=== PATIENT | male | born 1940 | race Caucasian/White ===

== ENCOUNTER → 2018-04-14 | Outpatient (CLI) | payer MEDICARE, OTHER ==
[2018-04-14 09:41] LABS: CREATININE 1.6 mg/dL (0.7-1.3); GFR 42.2
== END | disposition home or self-care (01) ==
LOC: CT 08:24
PROVIDERS: ATTEND Urology
DX: R31.0 Gross hematuria (principal)
CPT/HCPCS: 36415; 82565

== ENCOUNTER 2018-04-20 07:12 | Outpatient (CLI) | payer MEDICARE, OTHER ==
[~2018-04-20] VITALS: Ht 180.3 cm; Wt 116.1 kg
[2018-04-20] MEDS ORDERED: SODIUM BICARBONATE VIAL 150 MEQ in IV STERILE WATER 1,000 ML IV SCH (07:30)
[2018-04-20] MEDS ORDERED: TAMS0.4C2 PO (08:30)
[2018-04-20] MEDS ORDERED: FURO40TA4 PO (08:30)
[2018-04-20] MEDS ORDERED: CINN500C2 PO (08:30)
[2018-04-20] MEDS ORDERED: METO200T46 PO (08:30)
[2018-04-20] MEDS ORDERED: CHRO400T3 PO (08:30)
[2018-04-20] MEDS ORDERED: SITA100T PO (08:30)
[2018-04-20] MEDS ORDERED: DILT240C66 PO (08:30)
[2018-04-20] MEDS ORDERED: GLIM2TAB2 PO (08:30)
[2018-04-20] MEDS ORDERED: METF500T16 PO (08:30)
[2018-04-20] MEDS ORDERED: LOSA25TA PO (08:30)
[2018-04-20] MEDS ORDERED: NABU500T PO (08:30)
[2018-04-20] MEDS ORDERED: APIX5TAB PO (08:30)
[2018-04-20] MEDS ORDERED: ASPI-630 PO (08:30)
[2018-04-20] MEDS ORDERED: ATOR20TA58 PO (08:30)
[2018-04-20] MEDS ORDERED: ASCO10002 PO (08:31)
[2018-04-20] MEDS ORDERED: OMEG1CAP43 PO (08:31)
[2018-04-20] MEDS ORDERED: MULT-690 PO (08:31)
[2018-04-20 08:43] VITALS: BP 147/79
[2018-04-20] MEDS ORDERED: IOHEXOL 300 MG/ML 100ML VIAL. IV ONE (09:00)
[2018-04-20] MEDS ORDERED: CONTRAST GIVEN. MC PRN (09:00)
--- NOTE | 2018-04-20 11:17 | RAD ---
Examination: CT abdomen and pelvis without and with IV contrast using CT urogram protocol HISTORY: History of gross hematuria COMPARISON: None available TECHNIQUE: Axial CT images of the abdomen pelvis were performed without and with IV contrast. CT abdomen protocol is used. Coronal and sagittal reformats are performed Exposure: One or more of the following individualized dose reduction techniques were utilized for this examination: 1. Automated exposure control 2. Adjustment of the mA and/or kV according to patient size 3. Use of iterative reconstruction technique Findings: Minimal bibasilar lung atelectasis is identified. No evidence of free air identified in the abdomen. The visualized liver, spleen, adrenals grossly appears unremarkable. The gallbladder is mildly distended. . The stomach is mildly distended. The visualized pancreas grossly appears unremarkable. Small bowel is nondilated. Feces and gas noted in the colon. Multiple sigmoid colon diverticulosis identified. There is punctate 3 mm calculus identified in the right kidney. There is mild fat stranding identified about the right kidney and right ureter. The left kidney is not identified likely prior surgical changes. The urinary bladder is mildly distended. No evidence of filling defects identified in the urinary bladder. Mildly enlarged prostate gland. Moderate aortic atherosclerosis. Small fat-containing left inguinal hernia. Moderate degenerative changes lumbar spine. There is mild superior endplate compression change of L3 vertebral body. IMPRESSION: 1. Mild fat stranding identified about the right kidney and the right ureter, nonspecific could be due to medical renal disease or urinary tract infection. Correlate with lab values. 2. Punctate 3 mm calculus right kidney without hydronephrosis. 2. Changes of left nephrectomy. Electronically signed by: Timbo Dawkins MD (04/20/2018 11:14 AM) [facility]
[2018-04-20 12:56] VITALS: BP 185/99
--- NOTE | 2018-04-20 13:16 | NUR ---
Pt's IV dc'd from left FA with no complications. Pt VSS. Pt walked to outpatient entrance, accompanied by his .
== END 2018-04-20 13:00 | disposition home or self-care (01) ==
LOC: CT 07:12
PROVIDERS: ATTEND Urology
DX: N20.0 Calculus of kidney (principal); M47.896 Other spondylosis, lumbar region; I70.0 Atherosclerosis of aorta; K40.90 Unilateral inguinal hernia, without obstruction or gangrene, not specified as recurrent; N40.0 Benign prostatic hyperplasia without lower urinary tract symptoms; N32.89 Other specified disorders of bladder; K57.30 Diverticulosis of large intestine without perforation or abscess without bleeding; J98.11 Atelectasis; J44.9 Chronic obstructive pulmonary disease, unspecified; I10 Essential (primary) hypertension; E11.9 Type 2 diabetes mellitus without complications; Z87.891 Personal history of nicotine dependence
CPT/HCPCS: 74178; Q9967

== ENCOUNTER 2018-12-08 06:22 | Emergency (ER) | payer MEDICARE, OTHER ==
[~2018-12-08] VITALS: Ht 180.3 cm; Wt 116.1 kg
[~2018-12-08 06:22] MED LIST: APIX5TAB PO; ASCO10002 PO; ASPI-630 PO; ATOR20TA58 PO; CHRO400T3 PO; CINN500C2 PO; DILT240C66 PO; FURO40TA4 PO; GLIM2TAB3 PO; LOSA25TA PO; METF500T16 PO; METO200T46 PO; MULT-690 PO; NABU500T PO; OMEG1CAP43 PO; SITA100T PO; TAMS0.4C2 PO
[2018-12-08] MEDS ORDERED: SILVER NITRATE STICK TP ONE (06:32)
[2018-12-08 07:11] LABS: BASO # 0.1 x10^3/uL (0.0-0.2); BASO % 1 % (0-3); EOS # 0.1 x10^3/uL (0.0-0.7); EOS % 2 % (0-3); HEMATOCRIT 39.6 % (39.0-53.0); LYMPH % 12 % (24-48); MEAN CORPUSCULAR HEMOGLOBIN 32 pg (25-35); MEAN CORPUSCULAR HGB CONC 33 g/dL (31-37); MEAN CORPUSCULAR VOLUME 99 fL (79-100); MONO # 0.7 x10^3/uL (0.0-1.1); MONO % 8 % (0-9); NEUT # 6.7 x10^3/uL (1.8-7.7); NEUT % 78 % (31-73); PLATELET COUNT 172 x10^3/uL (140-400); RED CELL DISTRIBUTION WIDTH 14.9 % (11.5-14.5); WHITE BLOOD COUNT 8.6 x10^3/uL (4.0-11.0)
[2018-12-08 07:16] LABS: CALCIUM 9.3 mg/dL (8.5-10.1); CREATININE 1.6 mg/dL (0.7-1.3); GFR 42.2; POTASSIUM 4.8 mmol/L (3.5-5.1)
[2018-12-08 07:23] LABS: ALBUMIN 3.7 g/dL (3.4-5.0); ALBUMIN/GLOBULIN RATIO 1.1 (1.0-1.7); TOTAL BILIRUBIN 0.6 mg/dL (0.2-1.0); TOTAL PROTEIN 7.1 g/dL (6.4-8.2)
[2018-12-08 07:24] LABS: PROTHROMBIN TIME PATIENT 15.6 SEC (11.7-14.0)
--- NOTE | 2018-12-08 08:28 | PHYS DOC ---
Past Medical History Past Medical History: A-Fib, Diabetes-Type II, Other Additional Past Medical Histor: NEUROPATHY Alcohol Use: Occasionally Drug Use: None Adult General Chief Complaint Chief Complaint: LACERATION/AVULSION HPI HPI Patient is a 78 year old male with history of atrial fibrillation on Eliquis and aspirin who presents via EMS with complaining of bleeding. Patient state he has had readings in the rectum of left foot since 2 AM that did not stop with applied pressure. Patient denies injuries and other bleeding. Review of Systems Review of Systems Constitutional: Denies fever or chills [] Eyes: Denies change in visual acuity, redness, or eye pain [] HENT: Denies nasal congestion or sore throat [] Respiratory: Denies cough or shortness of breath [] Cardiovascular: No additional information not addressed in HPI [] GI: Denies abdominal pain, nausea, vomiting, bloody stools or diarrhea [] : Denies dysuria or hematuria [] Musculoskeletal: Denies back pain or joint pain [] Integument: Denies rash or skin lesions [] Neurologic: Denies headache, focal weakness or sensory changes [] Endocrine: Denies polyuria or polydipsia [] All other systems were reviewed and found to be within normal limits, except as documented in this note. Current Medications Current Medications Current Medications Medications (Trade) Dose Ordered Sig/Estefania Start Time Stop Time Status Last Admin Dose Admin Silver Nitrate/ Potassium Nitrate 1 each STK-MED ONCE 12/08/18 06:32 12/08/18 06:32 DC Allergies Allergies Allergies Coded Allergies Type Severity Reaction Last Updated Verified lisinopril Allergy Intermediate 04/14/18 Yes tetanus immune globulin Allergy Unknown 12/08/18 Yes Physical Exam Physical Exam Constitutional: Well developed, well nourished, mild distress, non-toxic appearance. [] HENT: Normocephalic, atraumatic. Eyes: PERRLA, EOMI, conjunctiva normal, no discharge. [] Neck: Normal range of motion, no tenderness, supple, no stridor. [] Cardiovascular: Irregularly irregular rhythm, systolic murmur [] Lungs & Thorax: Bilateral breath sounds clear to auscultation [] Extremities: No tenderness, no cyanosis, no clubbing, ROM intact, no edema, 1 mm spot of bleeding in volar side of left forefeet. [] Neurologic: Alert and oriented X 3, no focal deficits noted. [] Psychologic: Affect normal, judgement normal, mood normal. [] Current Patient Data Vital Signs Vital Signs Date Time Temp Pulse Resp B/P (MAP) Pulse Ox O2 Delivery O2 Flow Rate FiO2 12/08/18 08:33 80 194/99 (130) 95 Room Air 12/08/18 07:03 18 12/08/18 06:25 98.0 98.0 Lab Values Laboratory Tests Test 12/08/18 06:52 12/08/18 06:55 Glucose (Fingerstick) 126 mg/dL (70-99) H White Blood Count 8.6 x10^3/uL (4.0-11.0) Red Blood Count 4.00 x10^6/uL (4.30-5.70) L Hemoglobin 13.0 g/dL (13.0-17.5) Hematocrit 39.6 % (39.0-53.0) Mean Corpuscular Volume 99 fL (79-100) Mean Corpuscular Hemoglobin 32 pg (25-35) Mean Corpuscular Hemoglobin Concent 33 g/dL (31-37) Red Cell Distribution Width 14.9 % (11.5-14.5) H Platelet Count 172 x10^3/uL (140-400) Neutrophils (%) (Auto) 78 % (31-73) H Lymphocytes (%) (Auto) 12 % (24-48) L Monocytes (%) (Auto) 8 % (0-9) Eosinophils (%) (Auto) 2 % (0-3) Basophils (%) (Auto) 1 % (0-3) Neutrophils # (Auto) 6.7 x10^3/uL (1.8-7.7) Lymphocytes # (Auto) 1.0 x10^3/uL (1.0-4.8) Monocytes # (Auto) 0.7 x10^3/uL (0.0-1.1) Eosinophils # (Auto) 0.1 x10^3/uL (0.0-0.7) Basophils # (Auto) 0.1 x10^3/uL (0.0-0.2) Prothrombin Time 15.6 SEC (11.7-14.0) H Prothrombin Time INR 1.3 (0.8-1.1) H Activated Partial Thromboplast Time 31 SEC (24-38) Sodium Level 145 mmol/L (136-145) Potassium Level 4.8 mmol/L (3.5-5.1) Chloride Level 109 mmol/L (98-107) H Carbon Dioxide Level 24 mmol/L (21-32) Anion Gap 12 (6-14) Blood Urea Nitrogen 28 mg/dL (8-26) H Creatinine 1.6 mg/dL (0.7-1.3) H Estimated GFR (Cockcroft-Gault) 42.2 BUN/Creatinine Ratio 18 (6-20) Glucose Level 124 mg/dL (70-99) H Calcium Level 9.3 mg/dL (8.5-10.1) Total Bilirubin 0.6 mg/dL (0.2-1.0) Aspartate Amino Transferase (AST) 19 U/L (15-37) Alanine Aminotransferase (ALT) 30 U/L (16-63) Alkaline Phosphatase 68 U/L (46-116) Total Protein 7.1 g/dL (6.4-8.2) Albumin 3.7 g/dL (3.4-5.0) Albumin/Globulin Ratio 1.1 (1.0-1.7) Laboratory Tests 12/08/18 06:55 Laboratory Tests 12/08/18 06:55 EKG EKG [] Radiology/Procedures Radiology/Procedures [] Course & Med Decision Making Course & Med Decision Making Pertinent Lab reviewed. (See chart for details) Evaluation of patient in ER showed 78-year-old male patient with bleeding and spotting left foot that stopped with apply Silvadene nitrite, Dermabond and Steri-Strip and pressure dressing. Dragon Disclaimer Dragon Disclaimer This electronic medical record was generated, in whole or in part, using a voice recognition dictation system. Departure Departure Impression: Primary Impression: Hemorrhage secondary to anti-coagulation Additional Impressions: Chronic renal insufficiency History of atrial fibrillation Disposition: HOME, SELF-CARE (at 0827) Condition: IMPROVED Referrals: NO PCP (PCP) Patient Instructions: Puncture Wound Additional Instructions: Keep wound clean and dry Follow-up with your primary care physician in 2-3 days Return to ER if not getting better Continue home medication Laceration Repair Lac Repair Indication: Puncture wound of left foot with bleeding Procedure: The patient was placed in the appropriate position and smartest pulsatile bleeding in left foot was treated with Silvadene nitrate stick and then Dermabond and Steri-Strip with controlling the bleeding. Pressure dressing was applied. total repaired wound length: [TOTAL REPAIR LENGTH]. Other Items: [OTHER ITEMS] The patient tolerated the procedure [TOLERATED]. Complications: [COMPLICATIONS]. Problem Qualifiers Additional Impressions: Chronic renal insufficiency Chronic kidney disease stage: unspecified stage Qualified Codes: N18.9 - Chronic kidney disease, unspecified VEE MCCONNELL MD Dec 08, 2018 08:28
[2018-12-08 08:33] VITALS: BP 194/99
== END 2018-12-08 08:35 | disposition home or self-care (01) ==
LOC: ER 06:22
DX: S91.312A Laceration without foreign body, left foot, initial encounter (principal); E11.22 Type 2 diabetes mellitus with diabetic chronic kidney disease; E11.40 Type 2 diabetes mellitus with diabetic neuropathy, unspecified; N18.9 Chronic kidney disease, unspecified; I48.91 Unspecified atrial fibrillation; Z88.8 Allergy status to other drugs, medicaments and biological substances; X58.XXXA Exposure to other specified factors, initial encounter; Y93.89 Activity, other specified; Y92.89 Other specified places as the place of occurrence of the external cause; Y99.8 Other external cause status
CPT/HCPCS: 12001; 36415; 80053; 82962; 85025; 85610; 85730; 99284

== ENCOUNTER 2019-01-09 11:54 | Inpatient (IN) | payer MEDICARE, OTHER ==
[~2019-01-09] VITALS: Ht 177.8 cm; Wt 116.1 kg
[2019-01-09] MEDS ORDERED: fentaNYL PF VIAL 100 MCG/2 ML VIAL IVP ONE ×2 (12:30→13:30)
[2019-01-09] MEDS ORDERED: ORPHENADRINE CITRATE 60 MG/2 ML VIAL. IV ONE (12:30)
--- NOTE | 2019-01-09 12:50 | PHYS DOC ---
Past Medical History Past Medical History: A-Fib, Bronchitis, COPD, Diabetes-Type II, Heart Disease, Hypertension, MD, Pneumonia, Other Additional Past Medical Histor: NEUROPATHY, CARDIAC STENTS. Past Surgical History: Appendectomy Alcohol Use: Occasionally Drug Use: None Adult General Chief Complaint Chief Complaint: MECHANICAL FALL HPI HPI Patient is a 78 year old male with history of hypertension, dyslipidemia, coronary artery disease, atrial fibrillation on Eliquis and diabetes mellitus who presents via EMS with complaint of fall and injury to left hip. Patient states he had an accidental fall in his garage and tripped on air compressor and fell without loss of consciousness or head injury. Patient complaining of severe pain in left hip and rated his pain 10 over 10 and states he was not able to move his left lower extremity or bearing weight. Patient denies focal neurodeficit and other injuries. Review of Systems Review of Systems Constitutional: Denies fever or chills [] Eyes: Denies change in visual acuity, redness, or eye pain [] HENT: Denies nasal congestion or sore throat [] Respiratory: Denies cough or shortness of breath [] Cardiovascular: No additional information not addressed in HPI [] GI: Denies abdominal pain, nausea, vomiting, bloody stools or diarrhea [] : Denies dysuria or hematuria [] Musculoskeletal: Denies back pain, reports joint pain [] Integument: Denies rash or skin lesions [] Neurologic: Denies headache, focal weakness or sensory changes [] Endocrine: Denies polyuria or polydipsia [] All other systems were reviewed and found to be within normal limits, except as documented in this note. Current Medications Current Medications Current Medications Medications (Trade) Dose Ordered Sig/Estefania Start Time Stop Time Status Last Admin Dose Admin Fentanyl Citrate (Fentanyl 2ml Vial) 50 mcg 1X ONCE 01/09/19 12:30 01/09/19 12:31 DC 01/09/19 12:46 50 MCG Orphenadrine Citrate (Norflex) 60 mg 1X ONCE 01/09/19 12:30 01/09/19 12:31 DC 01/09/19 12:46 60 MG Allergies Allergies Allergies Coded Allergies Type Severity Reaction Last Updated Verified lisinopril Allergy Intermediate 04/14/18 Yes tetanus immune globulin Allergy Unknown 12/08/18 Yes Physical Exam Physical Exam Constitutional: Well developed, well nourished, moderate distress, non-toxic appearance. [] HENT: Normocephalic, atraumatic. Eyes: PERRLA, EOMI, conjunctiva normal, no discharge. [] Neck: Normal range of motion, no tenderness, supple, no stridor. [] Cardiovascular: Irregularly irregular rhythm, no murmur [] Lungs & Thorax: Bilateral breath sounds clear to auscultation [] Abdomen: Bowel sounds normal, soft, no tenderness, no masses, no pulsatile masses. [] Skin: Warm, dry, no erythema, no rash. [] Extremities: Left lower extremity with external rotation and shortening and tenderness in hip, limited range of motion because of pain, no edema. [] Neurologic: Alert and oriented X 3, normal motor function, normal sensory function, no focal deficits noted. [] Psychologic: Affect normal, judgement normal, mood normal. [] Current Patient Data Vital Signs Vital Signs Date Time Temp Pulse Resp B/P (MAP) Pulse Ox O2 Delivery O2 Flow Rate FiO2 01/09/19 12:46 20 01/09/19 11:58 98.4 79 188/86 (120) 96 98.4 EKG EKG EKG interpreted by me. EKG at 1220 showed atrial fibrillation at rate of 74, abnormal left axis deviation, low voltage QRS, no acute ST and T-wave elevation. Radiology/Procedures Radiology/Procedures [][facility] [address] [place] [address] IMAGING REPORT Signed PATIENT: ELISABETH LUKE ACCOUNT: [id number] : 1940 LOCATION: ER AGE: 78 SEX: M EXAM STATUS: PRE ER ORD. PHYSICIAN: VEE MCCONNELL MD REASON: Fall PROCEDURE: HIP LEFT 2V WITH PELVIS PORTABLE CHEST 1V, HIP LEFT 2V WITH PELVIS Clinical History: Status post fall One view chest: Technique: AP view of the chest was obtained at 01/09/2019 12:44 PM. Comparison: None. Findings: The cardiomediastinal silhouette is normal. The pulmonary vasculature is normal. The lungs and pleural margins are clear. Impression: No evidence of an acute cardiopulmonary process. End impression Pelvis and left Two View hip: Clinical History: Pain status post fall. Technique: AP view the pelvis AP and crosstable lateral views of the left hip were obtained. Comparison: None. Findings: There is a distracted nondisplaced intratrochanteric fracture of the left hip with avulsion of the lesser trochanter. There is obscuration of bony detail of sacrum due to overlying bowel gas. The visualized osseous structures appear normal. The femoral acetabular relationship is normal. There is gross osteopenia which decreases sensitivity for a possible nondisplaced fracture. Impression: Acute intratrochanteric fracture of the left hip. Electronically signed by: Lea Byrd III, MD (01/09/2019 1:00 PM) [facility] DICTATED and SIGNED BY: LEA BYRD III, MD DATE: 01/09/19 1300 [facility] [address] [place] [address] IMAGING REPORT Signed PATIENT: ELISABETH LUKE ACCOUNT: [id number] : 1940 LOCATION: ER AGE: 78 SEX: M EXAM STATUS: REG ER ORD. PHYSICIAN: VEE MCCONNELL MD REASON: fall PROCEDURE: CT HEAD WO CONTRAST Exam performed: CT scan of the head without contrast. Date of Service: 01/09/2019. Comparison: None available. Clinical History: Fall. Technique: Helical acquisitions are obtained from the foramen magnum to the vertex without intravenous administration of contrast. Findings: The ventricles are midline without evidence of dilatation. Normal nicolas-white differentiation is maintained. There is no extra axial fluid collection, intraparenchymal hemorrhage or mass lesion. There is mild atrophy. The visualized portions of the orbits, paranasal sinuses and the mastoid air cells appear clear. The calvarium is intact. Impression: 1. No acute intracranial process detected. PQRS Compliance Statement: One or more of the following individualized dose reduction techniques were utilized for this examination: 1. Automated exposure control 2. Adjustment of the mA and/or kV according to patient size 3. Use of iterative reconstruction technique Electronically signed by: Aleshia Crook MD (01/09/2019 1:31 PM) [facility] DICTATED and SIGNED BY: ALESHIA CROOK MD DATE: 01/09/19 1331 [facility] [address] [place] [address] IMAGING REPORT Signed PATIENT: ELISABETH LUKE ACCOUNT: [id number] : 1940 LOCATION: ER AGE: 78 SEX: M EXAM STATUS: PRE ER ORD. PHYSICIAN: VEE MCCONNELL MD REASON: fall PROCEDURE: PORTABLE CHEST 1V PORTABLE CHEST 1V, HIP LEFT 2V WITH PELVIS Clinical History: Status post fall One view chest: Technique: AP view of the chest was obtained at 01/09/2019 12:44 PM. Comparison: None. Findings: The cardiomediastinal silhouette is normal. The pulmonary vasculature is normal. The lungs and pleural margins are clear. Impression: No evidence of an acute cardiopulmonary process. End impression Pelvis and left Two View hip: Clinical History: Pain status post fall. Technique: AP view the pelvis AP and crosstable lateral views of the left hip were obtained. Comparison: None. Findings: There is a distracted nondisplaced intratrochanteric fracture of the left hip with avulsion of the lesser trochanter. There is obscuration of bony detail of sacrum due to overlying bowel gas. The visualized osseous structures appear normal. The femoral acetabular relationship is normal. There is gross osteopenia which decreases sensitivity for a possible nondisplaced fracture. Impression: Acute intratrochanteric fracture of the left hip. Electronically signed by: Lea Byrd III, MD (01/09/2019 1:00 PM) [facility] DICTATED and SIGNED BY: LEA BYRD III, MD DATE: 01/09/19 1300 Course & Med Decision Making Course & Med Decision Making Pertinent Labs and Imaging studies reviewed. (See chart for details) Evaluation of patient in ER showed 78-year-old male patient with a fall and injury to left hip. Patient had total concrete left femoral fracture severe pain and episodes of muscle spasm that improved with fentanyl and Norflex IV. call circuit worker orthopedic physician Dr. Terese Jacobo was consulted at 1335 and agreed with plan of admission.Patient requiring admission for further evaluation and treatment. Discussed with Dr. Bentley who is in agreement with admission. Discussed findings and plan with patient and family, who acknowledge understanding and agreement. Dragon Disclaimer Dragon Disclaimer This electronic medical record was generated, in whole or in part, using a voice recognition dictation system. Departure Departure Impression: Primary Impression: Closed intertrochanteric fracture of femur Additional Impressions: Fall at home Hyperkalemia Chronic atrial fibrillation Renal insufficiency Disposition: 09 ADMITTED INPATIENT (at 1337) Condition: IMPROVED Referrals: NO PCP (PCP) Problem Qualifiers Primary Impression: Closed intertrochanteric fracture of femur Encounter type: initial encounter Fracture alignment: displaced Laterality: left Qualified Codes: S72.142A - Displaced intertrochanteric fracture of left femur, initial encounter for closed fracture Additional Impressions: Fall at home Encounter type: subsequent encounter Qualified Codes: W19.XXXD - Unspecified fall, subsequent encounter; Y92.009 - Unspecified place in unspecified non-institutional (private) residence as the place of occurrence of the external cause VEE MCCONNELL MD Jan 09, 2019 12:50
[2019-01-09 13:03] LABS: BASO % 0 % (0-3); EOS # 0.2 x10^3/uL (0.0-0.7); EOS % 2 % (0-3); HEMATOCRIT 40.6 % (39.0-53.0); HEMOGLOBIN 13.7 g/dL (13.0-17.5); LYMPH % 11 % (24-48); MEAN CORPUSCULAR HEMOGLOBIN 33 pg (25-35); MEAN CORPUSCULAR HGB CONC 34 g/dL (31-37); MEAN CORPUSCULAR VOLUME 98 fL (79-100); MONO # 0.7 x10^3/uL (0.0-1.1); MONO % 7 % (0-9); NEUT # 7.6 x10^3/uL (1.8-7.7); NEUT % 80 % (31-73); PLATELET COUNT 162 x10^3/uL (140-400); RED BLOOD COUNT 4.14 x10^6/uL (4.30-5.70); RED CELL DISTRIBUTION WIDTH 14.7 % (11.5-14.5); WHITE BLOOD COUNT 9.5 x10^3/uL (4.0-11.0)
--- NOTE | 2019-01-09 13:03 | RAD ---
PORTABLE CHEST 1V, HIP LEFT 2V WITH PELVIS Clinical History: Status post fall One view chest: Technique: AP view of the chest was obtained at 01/09/2019 12:44 PM. Comparison: None. Findings: The cardiomediastinal silhouette is normal. The pulmonary vasculature is normal. The lungs and pleural margins are clear. Impression: No evidence of an acute cardiopulmonary process. End impression Pelvis and left Two View hip: Clinical History: Pain status post fall. Technique: AP view the pelvis AP and crosstable lateral views of the left hip were obtained. Comparison: None. Findings: There is a distracted nondisplaced intratrochanteric fracture of the left hip with avulsion of the lesser trochanter. There is obscuration of bony detail of sacrum due to overlying bowel gas. The visualized osseous structures appear normal. The femoral acetabular relationship is normal. There is gross osteopenia which decreases sensitivity for a possible nondisplaced fracture. Impression: Acute intratrochanteric fracture of the left hip. Electronically signed by: Gaurav Yung III, MD (01/09/2019 1:00 PM) [facility]
[2019-01-09 13:10] LABS: CALCIUM 9.3 mg/dL (8.5-10.1); CREATININE 1.6 mg/dL (0.7-1.3); GFR 42.2; POTASSIUM 5.5 mmol/L (3.5-5.1)
[2019-01-09 13:16] LABS: ALBUMIN 3.6 g/dL (3.4-5.0); TOTAL PROTEIN 7.1 g/dL (6.4-8.2)
[2019-01-09 13:18] LABS: PROTHROMBIN TIME PATIENT 16.5 SEC (11.7-14.0)
--- NOTE | 2019-01-09 13:34 | RAD ---
Exam performed: CT scan of the head without contrast. Date of Service: 01/09/2019. Comparison: None available. Clinical History: Fall. Technique: Helical acquisitions are obtained from the foramen magnum to the vertex without intravenous administration of contrast. Findings: The ventricles are midline without evidence of dilatation. Normal incolas-white differentiation is maintained. There is no extra axial fluid collection, intraparenchymal hemorrhage or mass lesion. There is mild atrophy. The visualized portions of the orbits, paranasal sinuses and the mastoid air cells appear clear. The calvarium is intact. Impression: 1. No acute intracranial process detected. PQRS Compliance Statement: One or more of the following individualized dose reduction techniques were utilized for this examination: 1. Automated exposure control 2. Adjustment of the mA and/or kV according to patient size 3. Use of iterative reconstruction technique Electronically signed by: Aleshia Crook MD (01/09/2019 1:31 PM) [facility]
--- NOTE | 2019-01-09 13:44 | PDOC1 ---
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 Patient states he had an accidental fall in his garage and tripped on air compressor and fell without loss of consciousness or head injury. Patient complaining of severe pain in left hip and rated his pain 10 / 10 and states he was not able to move his left lower extremity or bear weight. Patient denies focal neurodeficit and other injuries. His daughter bedside supplements his history. In ED notably had 5.5, Cr 1.6, INR 1.4. He did take his eliquis this morning. He does have cardiac history with stenting, afib. Has had a stress test some time during the past 2 years, goes to [facility] for his cardiac care. Past Medical History Cardiovascular: AFIB, CAD, HTN, Hyperlipidemia Pulmonary: COPD GI: No pertinent hx Heme/Onc: Cancer (Renal Ca) Hepatobiliary: No pertinent hx Psych: No pertinent hx Rheumatologic: No pertinent hx Infectious disease: No pertinent hx ENT: No pertinent hx Renal/: Renal Ca. Endocrine: Diabetes Dermatology: No pertinent hx Past Surgical History Past Surgical History: Appendectomy, Other (Left nephrectomy) Family History Family History: Diabetes, Hypertension Social History Smoke: No ALCOHOL: rare Drugs: None Current Medications Current Medications Current Medications Fentanyl Citrate (Fentanyl 2ml Vial) 50 mcg 1X ONCE IVP Last administered on 01/09/19at 12:46; Start 01/09/19 at 12:30; Stop 01/09/19 at 12:31; Status DC Orphenadrine Citrate (Norflex) 60 mg 1X ONCE IV Last administered on 01/09/19at 12:46; Start 01/09/19 at 12:30; Stop 01/09/19 at 12:31; Status DC Fentanyl Citrate (Fentanyl 2ml Vial) 50 mcg 1X ONCE IVP Last administered on 01/09/19at 13:37; Start 01/09/19 at 13:30; Stop 01/09/19 at 13:31; Status DC Active Scripts Active Reported Vitamin C (Ascorbic Acid) 1,000 Mg Tablet 1,000 Mg PO DAILY Fish Oil 1,400 Mg Softgel ([place]-3/Dha/Epa/Fish Oil) 1 Each Capsule.dr 1 Each PO DAILY Centrum Silver Men Tablet (Multivit-Min/FA/Lycopen/Lutein) 1 Each Tablet 1 Each PO DAILY Cinnamon (Cinnamon Bark) 500 Mg Capsule 1,000 Mg PO BID Chromium Picolinate 400 Mcg Tablet 400 Mcg PO DAILY Tamsulosin Hcl 0.4 Mg Cap.er.24h 0.4 Mg PO DAILY Nabumetone 500 Mg Tablet 1 Tab PO BID Metformin Hcl 500 Mg Tablet 500 Mg PO BIDWMEALS Metoprolol Succinate ( Xl ) (Metoprolol Succinate) 200 Mg Tab.er.24h 200 Mg PO DAILY Cozaar (Losartan Potassium) 25 Mg Tablet 25 Mg PO DAILY Januvia (Sitagliptin Phosphate) 100 Mg Tablet 100 Mg PO HS Glimepiride 2 Mg Tablet 2 Mg PO BID Furosemide 40 Mg Tablet 40 Mg PO DAILY PRN Eliquis (Apixaban) 5 Mg Tablet 5 Mg PO BID Cartia Xt (Diltiazem Hcl) 240 Mg Cap.er.24h 240 Mg PO DAILY Atorvastatin Calcium 20 Mg Tablet 20 Mg PO HS Aspirin 81 Mg Tab.chew 1 Tab PO DAILY Allergies Allergies: Coded Allergies: lisinopril (Verified Allergy, Intermediate, 04/14/18) tetanus immune globulin (Verified Allergy, Unknown, 12/08/18) ROS General: YES: Fatigue, Malaise; No: Chills, Night Sweats, Appetite, Other PSYCHOLOGICAL ROS: No: Anxiety, Behavioral Disorder, Concentration difficultie, Decreased libido, Depression, Disorientation, Hallucinations, Hostility, Irritablity, Memory difficulties, Mood Swings, Obsessive thoughts, Physical abuse, Sexual abuse, Sleep disturbances, Suicidal ideation, Other Eyes: No Blurry vision, No Decreased vision, No Double vision, No Dry eyes, No Excessive tearing, No Eye Pain, No Itchy Eyes, No Loss of vision, No Photophobia, No Scotomata, No Uses contacts, No Uses glasses, No Other HEENT: No: Heacaches, Visual Changes, Hearing change, Nasal congestion, Nasal discharge, Oral lesions, Sinus pain, Sore Throat, Epistaxis, Sneezing, Snoring, Tinnitus, Vertigo, Vocal changes, Other ALLERGY AND IMMUNOLOGY: No: Hives, Insect Bite Sensitivity, Itchy/Watery Eyes, Nasal Congestion, Post Nasal Drip, Seasonal Allergies, Other Hematological and Lymphatic: No: Bleeding Problems, Blood Clots, Blood Transfusions, Brusing, Night Sweats, Pallor, Swollen Lymph Nodes, Other ENDOCRINE: No: Breast Changes, Galactorrhea, Hair Pattern Changes, Hot Flashes, Malaise/lethargy, Mood Swings, Palpitations, Polydipsia/polyuria, Skin Changes, Temperature Intolerance, Unexpected Weight Changes, Other Breast: No New/Changing Breast Lumps, No Nipple changes, No Nipple discharge, No Other Respiratory: No: Cough, Hemoptysis, Orthopnea, Pleuritic Pain, Shortness of breath, SOB with excertion, Sputum Changes, Stridor, Tachypnea, Wheezing, Other Cardiovascular: No Chest Pain, No Palpitations, No Orthopnea, No Paroxysmal Noc. Dyspnea, No Edema, No Lt Headedness, No Other Gastrointestinal: No Nausea, No Vomiting, No Abdominal Pain, No Diarrhea, No Constipation, No Melena, No Hematochezia, No Other Genitourinary: No Dysuria, No Frequency, No Incontinence, No Hematuria, No Retention, No Discharge, No Urgency, No Pain, No Flank Pain, No Other, No , No , No , No , No , No , No Musculoskeletal: Yes Gait Disturbance, Yes Joint Pain, Yes Muscle Pain; No Joint Stiffness, No Joint Swelling, No Muscular Weakness, No Pain In:, No Swelling In:, No Other Neurological: Yes Gait Disturbance; No Behavorial Changes, No Bowel/Bladder ControlChng, No Confusion, No Dizziness, No Headaches, No Impaired Coord/balance, No Memory Loss, No Numbness/Tingling, No Seizures, No Speech Problems, No Tremors, No Visual Changes, No Weakness, No Other Skin: No Dry Skin, No Eczema, No Hair Changes, No Lumps, No Mole Changes, No Mottling, No Nail Changes, No Pruritus, No Rash, No Skin Lesion Changes, No Othe r, No Acne Physical Exam General: Alert, Oriented X3, Cooperative, moderate distress HEENT: Atraumatic, PERRLA, EOMI, Mucous membr. moist/pink Lungs: Clear to auscultation, Normal air movement Heart: irregularly irregular Abdomen: Normal bowel sounds, Soft, No tenderness, No hepatosplenomegaly, No masses Extremities: Other (left hip tender) Skin: No rashes, No breakdown, No significant lesion Neuro: Normal speech, Normal tone, Sensation intact, Cranial nerves 3-12 NL, Reflexes 2+ Psych/Mental Status: Mental status NL, Mood NL Vitals Vitals Vital Signs Date Time Temp Pulse Resp B/P (MAP) Pulse Ox O2 Delivery O2 Flow Rate FiO2 01/09/19 13:37 20 01/09/19 11:58 98.4 79 188/86 (120) 96 98.4 Labs Labs Laboratory Tests Test 01/09/19 12:54 White Blood Count 9.5 x10^3/uL (4.0-11.0) Red Blood Count 4.14 x10^6/uL (4.30-5.70) Hemoglobin 13.7 g/dL (13.0-17.5) Hematocrit 40.6 % (39.0-53.0) Mean Corpuscular Volume 98 fL (79-100) Mean Corpuscular Hemoglobin 33 pg (25-35) Mean Corpuscular Hemoglobin Concent 34 g/dL (31-37) Red Cell Distribution Width 14.7 % (11.5-14.5) Platelet Count 162 x10^3/uL (140-400) Neutrophils (%) (Auto) 80 % (31-73) Lymphocytes (%) (Auto) 11 % (24-48) Monocytes (%) (Auto) 7 % (0-9) Eosinophils (%) (Auto) 2 % (0-3) Basophils (%) (Auto) 0 % (0-3) Neutrophils # (Auto) 7.6 x10^3/uL (1.8-7.7) Lymphocytes # (Auto) 1.0 x10^3/uL (1.0-4.8) Monocytes # (Auto) 0.7 x10^3/uL (0.0-1.1) Eosinophils # (Auto) 0.2 x10^3/uL (0.0-0.7) Basophils # (Auto) 0.0 x10^3/uL (0.0-0.2) Prothrombin Time 16.5 SEC (11.7-14.0) Prothromb Time International Ratio 1.4 (0.8-1.1) Activated Partial Thromboplast Time 32 SEC (24-38) Sodium Level 141 mmol/L (136-145) Potassium Level 5.5 mmol/L (3.5-5.1) Chloride Level 105 mmol/L (98-107) Carbon Dioxide Level 22 mmol/L (21-32) Anion Gap 14 (6-14) Blood Urea Nitrogen 25 mg/dL (8-26) Creatinine 1.6 mg/dL (0.7-1.3) Estimated GFR (Cockcroft-Gault) 42.2 BUN/Creatinine Ratio 16 (6-20) Glucose Level 136 mg/dL (70-99) Calcium Level 9.3 mg/dL (8.5-10.1) Total Bilirubin 1.0 mg/dL (0.2-1.0) Aspartate Amino Transf (AST/SGOT) 21 U/L (15-37) Alanine Aminotransferase (ALT/SGPT) 26 U/L (16-63) Alkaline Phosphatase 69 U/L (46-116) Total Protein 7.1 g/dL (6.4-8.2) Albumin 3.6 g/dL (3.4-5.0) Albumin/Globulin Ratio 1.0 (1.0-1.7) Laboratory Tests Test 01/09/19 12:54 White Blood Count 9.5 x10^3/uL (4.0-11.0) Red Blood Count 4.14 x10^6/uL (4.30-5.70) Hemoglobin 13.7 g/dL (13.0-17.5) Hematocrit 40.6 % (39.0-53.0) Mean Corpuscular Volume 98 fL (79-100) Mean Corpuscular Hemoglobin 33 pg (25-35) Mean Corpuscular Hemoglobin Concent 34 g/dL (31-37) Red Cell Distribution Width 14.7 % (11.5-14.5) Platelet Count 162 x10^3/uL (140-400) Neutrophils (%) (Auto) 80 % (31-73) Lymphocytes (%) (Auto) 11 % (24-48) Monocytes (%) (Auto) 7 % (0-9) Eosinophils (%) (Auto) 2 % (0-3) Basophils (%) (Auto) 0 % (0-3) Neutrophils # (Auto) 7.6 x10^3/uL (1.8-7.7) Lymphocytes # (Auto) 1.0 x10^3/uL (1.0-4.8) Monocytes # (Auto) 0.7 x10^3/uL (0.0-1.1) Eosinophils # (Auto) 0.2 x10^3/uL (0.0-0.7) Basophils # (Auto) 0.0 x10^3/uL (0.0-0.2) Prothrombin Time 16.5 SEC (11.7-14.0) Prothromb Time International Ratio 1.4 (0.8-1.1) Activated Partial Thromboplast Time 32 SEC (24-38) Sodium Level 141 mmol/L (136-145) Potassium Level 5.5 mmol/L (3.5-5.1) Chloride Level 105 mmol/L (98-107) Carbon Dioxide Level 22 mmol/L (21-32) Anion Gap 14 (6-14) Blood Urea Nitrogen 25 mg/dL (8-26) Creatinine 1.6 mg/dL (0.7-1.3) Estimated GFR (Cockcroft-Gault) 42.2 BUN/Creatinine Ratio 16 (6-20) Glucose Level 136 mg/dL (70-99) Calcium Level 9.3 mg/dL (8.5-10.1) Total Bilirubin 1.0 mg/dL (0.2-1.0) Aspartate Amino Transf (AST/SGOT) 21 U/L (15-37) Alanine Aminotransferase (ALT/SGPT) 26 U/L (16-63) Alkaline Phosphatase 69 U/L (46-116) Total Protein 7.1 g/dL (6.4-8.2) Albumin 3.6 g/dL (3.4-5.0) Albumin/Globulin Ratio 1.0 (1.0-1.7) Images Images CXR - There is a distracted nondisplaced intratrochanteric fracture of the left hip with avulsion of the lesser trochanter. There is obscuration of bony detail of sacrum due to overlying bowel gas. The visualized osseous structures appear normal. The femoral acetabular relat ionship is normal. There is gross osteopenia which decreases sensitivity for a possible nondisplaced fracture. Impression: Acute intratrochanteric fracture of the left hip. VTE Prophylaxis Ordered VTE Prophylaxis Devices: No VTE Pharmacological Prophylaxi: Yes Assessment/Plan Assessment/Plan A/P: Left intertrochanteric fracture - traumatic, unlikely osteoporotic. Will check vitamin D level. Needs more pain control, muscle relaxants. Would delay surgery given he is on eliquis and has elevated potassium and creatinine. Ortho consulted [facility] - Cr 1.6 is not his baseline, states he has good residual renal function in his solitary kidney. Will hydrate for vasomotor nephropathy and consult nephrology Hyperkalemia - will give insulin, albuterol, kayexelate Dyslipidemia - cont statin A-Fib on eliquis, metoprolol, cardizem. Will hold his eliquis for potential surgery. Will transition to heparin tomorrow given his high [id number] and Afib on EKG. Consult cardiology. Would recommend cardiac monitoring post-op and delay surgery 24-48 hours due to his cardiac history COPD - stable on inhalers. Diabetes-Type II - insulin while in house. Hold oral antidiabetic meds for now Hypertension - cont bb and ccb CAD s/p stents - has had stress test at [facility] in the past 2 years. Will consult cardiology for further pre-op recs 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 Neuropathy - diabetic polyneuropathy, stable FEN - ADA diet PPX - eliquis, will transition to heparin tomorrow FULL CODE Dispo - inpatient for fall with left intertrochanteric fracture, likely 2 midnig hts. LUIS A BOO MD Jan 09, 2019 13:44
[2019-01-09 14:18] VITALS: BP 121/78
--- NOTE | 2019-01-09 14:20 | NUR ---
Pt. here from ER and placed in bed. Rates pain to L hip at 6/10, c/o muscle spasms. no pain meds from ER available, Dr. Bentley paged. Daughter at bedside. daughter stated she would obtain updated list of home meds.
[2019-01-09 15:00] VITALS: BP 147/87
[2019-01-09] MEDS ORDERED: ACETAMINOPHEN 650 MG SUPP.RECT. PR PRN (15:00)
[2019-01-09] MEDS ORDERED: ONDANSETRON PF 4 MG/2 ML VIAL. IV PRN (15:00)
[2019-01-09] MEDS: tiZANidine 4 MG TABLET. PO PRN (15:17)
[2019-01-09] MEDS ORDERED: TAMSULOSIN 0.4 MG CAP.ER.24H. PO SCH (15:30)
[2019-01-09] MEDS ORDERED: DEXTROSE 50% 25 GM / 50ML DISP.SYRIN. IV PRN ×2 (17:00→22:30)
[2019-01-09 19:25] VITALS: BP 119/70
[2019-01-09] MEDS: HYDROcodone/APAP 5/325MG 1 TAB TABLET PO PRN (19:37)
[2019-01-09] MEDS: TAMSULOSIN 0.4 MG CAP.ER.24H. PO SCH (19:37)
[2019-01-09] MEDS: ATORVASTATIN CALCIUM 20 MG TABLET PO SCH (19:37)
[2019-01-09] MEDS: fentaNYL PF VIAL 100 MCG/2 ML VIAL IV PRN (21:59)
[2019-01-09] MEDS ORDERED: SODIUM POLYSTYRENE SULFON/SORB 15 GM/60 ML ORAL.SUSP PO ONE (22:45)
[2019-01-09 23:22] VITALS: BP 118/79
[2019-01-10] VITALS (17 sets, daily range): BP systolic 72–155; BP diastolic 38–93
[2019-01-10] MEDS: tiZANidine 4 MG TABLET. PO PRN ×2 (00:27→16:25)
[2019-01-10] MEDS: MORPHINE SULFATE 4 MG/ML VIAL. IV PRN ×3 (00:28→23:20)
[2019-01-10] MEDS: HYDROcodone/APAP 5/325MG 1 TAB TABLET PO PRN ×2 (00:28→15:51)
[2019-01-10] MEDS: IV NORMAL SALINE 1000ML BAG 1,000 ML IV SCH ×2 (00:36→12:26)
[2019-01-10] MEDS: fentaNYL PF VIAL 100 MCG/2 ML VIAL IV PRN (04:36)
[2019-01-10 05:20] LABS: PROTHROMBIN TIME PATIENT 16.8 SEC (11.7-14.0)
[2019-01-10 06:01] LABS: ALBUMIN 3.3 g/dL (3.4-5.0); CALCIUM 9.1 mg/dL (8.5-10.1); CREATININE 1.6 mg/dL (0.7-1.3); GFR 42.2; PHOSPHORUS 3.8 mg/dL (2.6-4.7)
[2019-01-10 06:06] LABS: POTASSIUM 5.4 mmol/L (3.5-5.1)
[2019-01-10] MEDS ORDERED: MORPHINE SULFATE 5 MG, KETOROLAC 30MG VIAL 30 MG, ROPIVacaine 0.5% PF 60 ML, EPINEPHrin... INT ART ONE ×5 (07:15)
--- NOTE | 2019-01-10 07:24 | NUR ---
Pt. down to OR via bed.
[2019-01-10] MEDS ORDERED: fentaNYL PF VIAL 100 MCG/2 ML VIAL ONE (07:37)
[2019-01-10] MEDS ORDERED: DEXAMETHASONE SOD PHOS 4 MG/ML VIAL ONE (07:37)
[2019-01-10] MEDS ORDERED: LIDOCAINE 1% PF 5 ML VIAL. ONE (07:37)
[2019-01-10] MEDS ORDERED: ONDANSETRON PF 4 MG/2 ML VIAL. ONE (07:37)
[2019-01-10] MEDS ORDERED: PROPOFOL 20 ML IV ONE (07:37)
[2019-01-10] MEDS: INSULIN LISPRO 300 UNITS/3 ML VIAL. SQ SCH ×3 (08:00→17:15)
--- NOTE | 2019-01-10 08:01 | PDOC4 ---
Operative Note Operative Note Due to procedure: 01/10/2019 Surgeon: Lopez Hernandezt.: Julissa Moran, certified novell administrator Preoperative diagnosis: Closed, displaced, comminuted, left intertrochanteric h ip fracture Postoperative diagnosis: Same Procedure performed: Closed reduction and intramedullary nailing of left hip fracture Anesthesia: Gen. Findings: Acute fracture Blood loss: 300mL Complications: none Components inserted: 10 x 18 Case and nephew [employer] InterTAN 125 femoral nail, 115 mm lag screw, 110 mm compression screw, distal interlocking screw Reason for procedure: Patient is a very pleasant gentleman who had a ground- level fall sustaining the above injury. Id seen him in consultation, please see my consult note for full details. We have discussed the risks, benefits, and alternatives to the above surgery and he wished to proceed. Description of procedure: Patient was greeted in the preoperative area by myself for the correct extremity was verified and marked. He was taken to the operative suite and his antibiotics were started as he was brought back. Once in the operating room, he underwent successful induction of a general anesthetic and was then transferred gently supine to the fracture table. He was placed into the appropriate position, left leg in a traction ski boot and right leg in the well- leg swain. Padded perineal post was used. His arms were secured above his chest across a pillow. I then brought in C-arm and perform a reduction maneuver confirming adequate reduction under biplanar fluoroscopy. After this, the left hip and leg were prepped and draped in our usual sterile fashion and we conducted our standard preoperative timeout. After this, I palpated for his greater trochanter and ASIS and tu a line on sking At the intersection point of these, I then made my skin incision and bluntly dissected down to the tip of the greater trochanter and used biplanar fluoroscopy to identify an appropriate starting point for my guidepin which I then advanced down past the lesser trochanter. This was all accomplished well and dental assistant instructor lifted anteriorly underneath the thigh at the fracture site. I then gained entry to the proximal femur with the entry reamer using the soft tissue protector. After this I impacted my nail and position using fluoroscopy as a guide. While reaming and impacting the nail, the dental assistant instructor was still holding pressure on the posterior thigh. I then placed the lateral trocar again skin, and incised skin in accordance with this and bluntly split down to bone. I then seated the trochars and used biplanar fluoroscopy to achieve as close to a center center position with the tip of my guidepin as I was able to. I then used my lateral entry drill and then placed my derotation bar. I then measured and drilled for my leg screw. After this I placed my leg screw followed by my compression screw. I then rodríguez sara this trocar and placed the distal interlocking screw trocar again skin and made a stab incision and spread down to bone. Given his soft tissues, I had difficulty introducing the trocar through this first incision then made a second stab incision more anterior to it. I then seated this trocar and drilled and measured and then subsequently placed my distal interlocking screw. I then remove the insertion handle and trochars and took my final images. I was satisfied with fracture reduction and hardware position. The wounds were thoroughly irrigated. I injected my periarticular mixture into the del- incisional soft tissues. Deep layers were closed with simple interrupted 0 Vicryl. Inverted interrupted 2-0 Vicryl was used for subcutaneous tissue and violet for skin. I injected my periarticular mixture into the del-incisional areas. Sterile dressing was applied after the hip and leg were cleansed and dried. Traction was released after placement of the distal interlocking screw. The bed was reassembled and the perineal post was removed. He was laid gently supine on the fracture table. He was transferred gently supine to the hospital bed and taken to PACU in a stable and extubated condition. Postoperative plan is to allow partial weightbearing. He will receive DVT and antibiotic prophylaxis. Hell be readmitted to the hospitalist. He will also receive PT and OT. LOPEZ GAMBOA II, MD Jan 10, 2019 08:01
--- NOTE | 2019-01-10 08:05 | PDOC2 ---
CONSULT Date of Consult Date of Consult DATE: 01/10/19 TIME: 08:03 Reason for Consult Reason for Consult: Left hip fracture Referring Physician Referring Physician: Allison Identification/Chief Complaint Chief Complaint Left hip pain Source Source: Patient History of Present Illness Reason for Visit: Patient is very pleasant 78-year-old who lives at home with his and is ambulatory in the community and had a ground-level fall when he tripped over something in his garage. He landed onto his left hip and noted immediate pain and inability to bear weight and was brought into the emergency department. He was found have the above fracture and admitted. He is complaining of left hip pain, worse with any attempted movement or weightbearing. The pain doesn't really radiate. It is better at rest and with the IV pain medicine. He denies any preceding symptoms, he denies hitting anything else on his way down. Past Medical History Cardiovascular: AFIB, CAD, HTN, Hyperlipidemia Pulmonary: COPD GI: No pertinent hx Heme/Onc: Cancer (Renal Ca) Hepatobiliary: No pertinent hx Psych: No pertinent hx Rheumatologic: No pertinent hx Infectious disease: No pertinent hx ENT: No pertinent hx Renal/: Renal Ca. Endocrine: Diabetes Dermatology: No pertinent hx Past Surgical History Past Surgical History: Appendectomy, Other (Left nephrectomy) Family History Family History: Diabetes, Hypertension Social History No ALCOHOL: rare Drugs: None Current Problem List Problem List Problems Medical Problems: (1) Chronic atrial fibrillation Status: Acute (2) Closed intertrochanteric fracture of femur Status: Acute (3) Fall at home Status: Acute (4) Hyperkalemia Status: Acute (5) Renal insufficiency Status: Acute Current Medications Current Medications Current Medications Fentanyl Citrate (Fentanyl 2ml Vial) 50 mcg 1X ONCE IVP Last administered on 01/09/19at 12:46; Start 01/09/19 at 12:30; Stop 01/09/19 at 12:31; Status DC Orphenadrine Citrate (Norflex) 60 mg 1X ONCE IV Last administered on 01/09/19at 12:46; Start 01/09/19 at 12:30; Stop 01/09/19 at 12:31; Status DC Fentanyl Citrate (Fentanyl 2ml Vial) 50 mcg 1X ONCE IVP Last administered on 01/09/19at 13:37; Start 01/09/19 at 13:30; Stop 01/09/19 at 13:31; Status DC Fentanyl Citrate (Fentanyl 2ml Vial) 50 mcg PRN Q2HR PRN IV PAIN Last administered on 01/10/19at 04:36; Start 01/09/19 at 14:30; Stop 01/10/19 at 04:37; Status DC Ondansetron HCl (Zofran) 4 mg PRN Q4HRS PRN IV NAUSEA/VOMITING; Start 01/09/19 at 15:00 Acetaminophen (Tylenol Supp) 650 mg PRN Q4HRS PRN ID TEMP OVER 100.4F OR MILD PAIN; Start 01/09/19 at 15:00 Docusate Sodium (Colace) 100 mg PRN BID PRN PO CONSTIPATION; Start 01/09/19 at 15:00 Atorvastatin Calcium (Lipitor) 20 mg HS PO Last administered on 01/09/19at 19:37; Start 01/09/19 at 21:00 Diltiazem HCl (Cardizem 24hr Cd) 240 mg DAILY PO ; Start 01/09/19 at 15:30 Tamsulosin HCl (Flomax) 0.4 mg DAILY PO ; Start 01/09/19 at 15:30; Stop 01/09/19 at 16:31; Status DC Tizanidine HCl (Zanaflex) 4 mg PRN Q8HRS PRN PO MUSCLE SPASMS Last administered on 01/10/19at 00:27; Start 01/09/19 at 15:15 Acetaminophen/ Hydrocodone Bitart (Lortab 5/325) 1 tab PRN Q4HRS PRN PO PAIN Last administered on 01/10/19at 00:28; Start 01/09/19 at 15:15 Morphine Sulfate (Morphine Sulfate) 4 mg PRN Q2HR PRN IV PAIN Last administered on 01/10/19at 07:22; Start 01/09/19 at 15:15 Tamsulosin HCl (Flomax) 0.4 mg QHS PO Last administered on 01/09/19at 19:37; Start 01/09/19 at 21:00 Dextrose (Dextrose 50%-Water Syringe) 12.5 gm PRN Q15MIN PRN IV SEE COMMENTS; Start 01/09/19 at 17:00 Cefazolin Sodium/ Dextrose 50 ml @ 100 mls/hr 1X ONCE IV ; Start 01/09/19 at 18:30; Stop 01/09/19 at 18:59; Status Cancel Cefazolin Sodium/ Dextrose 50 ml @ 100 mls/hr 1X ONCE IV ; Start 01/10/19 at 08:00; Stop 01/10/19 at 08:29 Sodium Chloride 1,000 ml @ 75 mls/hr [id number] IV Last administered on 01/10/19at 00:36; Start 01/09/19 at 22:30 Insulin Human Lispro (HumaLOG) 0-5 UNITS TIDWMEALS SQ ; Start 01/10/19 at 08:00 Dextrose (Dextrose 50%-Water Syringe) 12.5 gm PRN Q15MIN PRN IV SEE COMMENTS; Start 01/09/19 at 22:30 Metoprolol Succinate (Toprol Xl) 200 mg DAILY PO ; Start 01/10/19 at 09:00 Sodium Polystyrene Sulfonate (Kayexalate) 15 gm 1X ONCE PO Last administered on 01/10/19at 00:28; Start 01/09/19 at 22:45; Stop 01/09/19 at 22:46; Status DC Morphine Sulfate 5 mg/Ketorolac Tromethamine 30 mg/Ropivacaine 60 ml/Epinephrine HCl 0.5 mg/Sodium Chloride 100 ml @ 100 mls/hr 1X ONCE INT ART ; Start 01/10/19 at 07:15; Stop 01/10/19 at 08:14 Propofol 20 ml @ As Directed STK-MED ONCE IV ; Start 01/10/19 at 07:37; Stop 01/10/19 at 07:37; Status DC Lidocaine HCl (Xylocaine-Mpf 1% 5ml Vial) 5 ml STK-MED ONCE .ROUTE ; Start 01/10/19 at 07:37; Stop 01/10/19 at 07:37; Status DC Dexamethasone Sodium Phosphate (Decadron) 4 mg STK-MED ONCE .ROUTE ; Start 01/10/19 at 07:37; Stop 01/10/19 at 07:37; Status DC Ondansetron HCl (Zofran) 4 mg STK-MED ONCE .ROUTE ; Start 01/10/19 at 07:37; Stop 01/10/19 at 07:37; Status DC Fentanyl Citrate (Fentanyl 2ml Vial) 100 mcg STK-MED ONCE .ROUTE ; Start 01/10/19 at 07:37; Stop 01/10/19 at 07:38; Status DC Active Scripts Active Reported Vitamin C (Ascorbic Acid) 1,000 Mg Tablet 1,000 Mg PO DAILY Fish Oil 1,400 Mg Softgel ([place]-3/Dha/Epa/Fish Oil) 1 Each Capsule.dr 1 Each PO DAILY Centrum Silver Men Tablet (Multivit-Min/FA/Lycopen/Lutein) 1 Each Tablet 1 Each PO DAILY Cinnamon (Cinnamon Bark) 500 Mg Capsule 1,000 Mg PO BID Chromium Picolinate 400 Mcg Tablet 400 Mcg PO DAILY Tamsulosin Hcl 0.4 Mg Cap.er.24h 0.4 Mg PO DAILY Nabumetone 500 Mg Tablet 1 Tab PO BID Metformin Hcl 500 Mg Tablet 1,000 Mg PO BIDWMEALS Metoprolol Succinate ( Xl ) (Metoprolol Succinate) 200 Mg Tab.er.24h 200 Mg PO DAILY Cozaar (Losartan Potassium) 25 Mg Tablet 25 Mg PO DAILY Januvia (Sitagliptin Phosphate) 100 Mg Tablet 100 Mg PO HS Glimepiride 2 Mg Tablet 2 Mg PO BID Furosemide 40 Mg Tablet 40 Mg PO DAILY PRN Eliquis (Apixaban) 5 Mg Tablet 5 Mg PO BID Cartia Xt (Diltiazem Hcl) 240 Mg Cap.er.24h 240 Mg PO DAILY Atorvastatin Calcium 20 Mg Tablet 20 Mg PO HS Aspirin 81 Mg Tab.chew 1 Tab PO DAILY Allergies Allergies: Coded Allergies: lisinopril (Verified Allergy, Intermediate, 04/14/18) tetanus immune globulin (Verified Allergy, Unknown, 12/08/18) ROS General: No: Chills, Night Sweats, Fatigue, Malaise, Appetite, Other PSYCHOLOGICAL ROS: No: Anxiety, Behavioral Disorder, Concentration difficultie, Decreased libido, Depression, Disorientation, Hallucinations, Hostility, Irritablity, Memory difficulties, Mood Swings, Obsessive thoughts, Physical abuse, Sexual abuse, Sleep disturbances, Suicidal ideation, Other Eyes: No Blurry vision, No Decreased vision, No Double vision, No Dry eyes, No Excessive tearing, No Eye Pain, No Itchy Eyes, No Loss of vision, No Photophobia, No Scotomata, No Uses contacts, No Uses glasses, No Other HEENT: No: Heacaches, Visual Changes, Hearing change, Nasal congestion, Nasal discharge, Oral lesions, Sinus pain, Sore Throat, Epistaxis, Sneezing, Snoring, Tinnitus, Vertigo, Vocal changes, Other ALLERGY AND IMMUNOLOGY: No: Hives, Insect Bite Sensitivity, Itchy/Watery Eyes, Nasal Congestion, Post Nasal Drip, Seasonal Allergies, Other Hematological and Lymphatic: No: Bleeding Problems, Blood Clots, Blood Transfusions, Brusing, Night Sweats, Pallor, Swollen Lymph Nodes, Other ENDOCRINE: No: Breast Changes, Galactorrhea, Hair Pattern Changes, Hot Flashes, Malaise/lethargy, Mood Swings, Palpitations, Polydipsia/polyuria, Skin Changes, Temperature Intolerance, Unexpected Weight Changes, Other Respiratory: No: Cough, Hemoptysis, Orthopnea, Pleuritic Pain, Shortness of breath, SOB with excertion, Sputum Changes, Stridor, Tachypnea, Wheezing, Other Cardiovascular: No Chest Pain, No Palpitations, No Orthopnea, No Paroxysmal Noc. Dyspnea, No Edema, No Lt Headedness, No Other Gastrointestinal: No Nausea, No Vomiting, No Abdominal Pain, No Diarrhea, No Constipation, No Melena, No Hematochezia, No Other Genitourinary: No Dysuria, No Frequency, No Incontinence, No Hematuria, No Retention, No Discharge, No Urgency, No Pain, No Flank Pain, No Other, No , No , No , No , No , No , No Musculoskeletal: Yes Joint Pain, Yes Joint Stiffness; No Gait Disturbance, No Joint Swelling, No Muscle Pain, No Muscular Weakness, No Pain In:, No Swelling In:, No Other Neurological: No Behavorial Changes, No Bowel/Bladder ControlChng, No Confusion, No Dizziness, No Gait Disturbance, No Headaches, No Impaired Coord/balance, No Memory Loss, No Numbness/Tingling, No Seizures, No Speech Problems, No Tremors, No Visual Changes, No Weakness, No Other Skin: No Dry Skin, No Eczema, No Hair Changes, No Lumps, No Mole Changes, No Mottling, No Nail Changes, No Pruritus, No Rash, No Skin Lesion Changes, No Other, No Acne Physical Exam General: Alert, Oriented X3 HEENT: Atraumatic, EOMI Lungs: Other (respirations are unlabored with symmetric chest rise) Heart: Other (irregular rate) Abdomen: Soft, No tenderness Extremities: No edema, Normal pulses Neuro: Normal speech, Strength at 5/5 X4 ext, Sensation intact Psych/Mental Status: Mental status NL, Mood NL MUSCULOSKELETAL: Other (he is tender diffusely around his left hip. Left lower extremity is shorter and slightly externally rotated. He can wiggle his toes, toes are pink and warm) Vitals VITALS Vital Signs Date Time Temp Pulse Resp B/P (MAP) Pulse Ox O2 Delivery O2 Flow Rate FiO2 01/10/19 07:22 Room Air 01/10/19 07:18 99.1 86 16 142/80 (100) 92 99.1 Labs Labs Laboratory Tests Test 01/09/19 12:54 01/09/19 20:48 01/10/19 03:00 White Blood Count 9.5 x10^3/uL (4.0-11.0) Red Blood Count 4.14 x10^6/uL (4.30-5.70) Hemoglobin 13.7 g/dL (13.0-17.5) Hematocrit 40.6 % (39.0-53.0) Mean Corpuscular Volume 98 fL (79-100) Mean Corpuscular Hemoglobin 33 pg (25-35) Mean Corpuscular Hemoglobin Concent 34 g/dL (31-37) Red Cell Distribution Width 14.7 % (11.5-14.5) Platelet Count 162 x10^3/uL (140-400) Neutrophils (%) (Auto) 80 % (31-73) Lymphocytes (%) (Auto) 11 % (24-48) Monocytes (%) (Auto) 7 % (0-9) Eosinophils (%) (Auto) 2 % (0-3) Basophils (%) (Auto) 0 % (0-3) Neutrophils # (Auto) 7.6 x10^3/uL (1.8-7.7) Lymphocytes # (Auto) 1.0 x10^3/uL (1.0-4.8) Monocytes # (Auto) 0.7 x10^3/uL (0.0-1.1) Eosinophils # (Auto) 0.2 x10^3/uL (0.0-0.7) Basophils # (Auto) 0.0 x10^3/uL (0.0-0.2) Prothrombin Time 16.5 SEC (11.7-14.0) 16.8 SEC (11.7-14.0) Prothromb Time International Ratio 1.4 (0.8-1.1) 1.4 (0.8-1.1) Activated Partial Thromboplast Time 32 SEC (24-38) Sodium Level 141 mmol/L (136-145) 140 mmol/L (136-145) Potassium Level 5.5 mmol/L (3.5-5.1) 5.4 mmol/L (3.5-5.1) Chloride Level 105 mmol/L (98-107) 104 mmol/L (98-107) Carbon Dioxide Level 22 mmol/L (21-32) 22 mmol/L (21-32) Anion Gap 14 (6-14) 14 (6-14) Blood Urea Nitrogen 25 mg/dL (8-26) 26 mg/dL (8-26) Creatinine 1.6 mg/dL (0.7-1.3) 1.6 mg/dL (0.7-1.3) Estimated GFR (Cockcroft-Gault) 42.2 42.2 BUN/Creatinine Ratio 16 (6-20) Glucose Level 136 mg/dL (70-99) 152 mg/dL (70-99) Calcium Level 9.3 mg/dL (8.5-10.1) 9.1 mg/dL (8.5-10.1) Total Bilirubin 1.0 mg/dL (0.2-1.0) Aspartate Amino Transf (AST/SGOT) 21 U/L (15-37) Alanine Aminotransferase (ALT/SGPT) 26 U/L (16-63) Alkaline Phosphatase 69 U/L (46-116) Total Protein 7.1 g/dL (6.4-8.2) Albumin 3.6 g/dL (3.4-5.0) 3.3 g/dL (3.4-5.0) Albumin/Globulin Ratio 1.0 (1.0-1.7) Glucose (Fingerstick) 180 mg/dL (70-99) Phosphorus Level 3.8 mg/dL (2.6-4.7) Laboratory Tests Test 01/09/19 12:54 01/09/19 20:48 01/10/19 03:00 White Blood Count 9.5 x10^3/uL (4.0-11.0) Red Blood Count 4.14 x10^6/uL (4.30-5.70) Hemoglobin 13.7 g/dL (13.0-17.5) Hematocrit 40.6 % (39.0-53.0) Mean Corpuscular Volume 98 fL (79-100) Mean Corpuscular Hemoglobin 33 pg (25-35) Mean Corpuscular Hemoglobin Concent 34 g/dL (31-37) Red Cell Distribution Width 14.7 % (11.5-14.5) Platelet Count 162 x10^3/uL (140-400) Neutrophils (%) (Auto) 80 % (31-73) Lymphocytes (%) (Auto) 11 % (24-48) Monocytes (%) (Auto) 7 % (0-9) Eosinophils (%) (Auto) 2 % (0-3) Basophils (%) (Auto) 0 % (0-3) Neutrophils # (Auto) 7.6 x10^3/uL (1.8-7.7) Lymphocytes # (Auto) 1.0 x10^3/uL (1.0-4.8) Monocytes # (Auto) 0.7 x10^3/uL (0.0-1.1) Eosinophils # (Auto) 0.2 x10^3/uL (0.0-0.7) Basophils # (Auto) 0.0 x10^3/uL (0.0-0.2) Prothrombin Time 16.5 SEC (11.7-14.0) 16.8 SEC (11.7-14.0) Prothromb Time International Ratio 1.4 (0.8-1.1) 1.4 (0.8-1.1) Activated Partial Thromboplast Time 32 SEC (24-38) Sodium Level 141 mmol/L (136-145) 140 mmol/L (136-145) Potassium Level 5.5 mmol/L (3.5-5.1) 5.4 mmol/L (3.5-5.1) Chloride Level 105 mmol/L (98-107) 104 mmol/L (98-107) Carbon Dioxide Level 22 mmol/L (21-32) 22 mmol/L (21-32) Anion Gap 14 (6-14) 14 (6-14) Blood Urea Nitrogen 25 mg/dL (8-26) 26 mg/dL (8-26) Creatinine 1.6 mg/dL (0.7-1.3) 1.6 mg/dL (0.7-1.3) Estimated GFR (Cockcroft-Gault) 42.2 42.2 BUN/Creatinine Ratio 16 (6-20) Glucose Level 136 mg/dL (70-99) 152 mg/dL (70-99) Calcium Level 9.3 mg/dL (8.5-10.1) 9.1 mg/dL (8.5-10.1) Total Bilirubin 1.0 mg/dL (0.2-1.0) Aspartate Amino Transf (AST/SGOT) 21 U/L (15-37) Alanine Aminotransferase (ALT/SGPT) 26 U/L (16-63) Alkaline Phosphatase 69 U/L (46-116) Total Protein 7.1 g/dL (6.4-8.2) Albumin 3.6 g/dL (3.4-5.0) 3.3 g/dL (3.4-5.0) Albumin/Globulin Ratio 1.0 (1.0-1.7) Glucose (Fingerstick) 180 mg/dL (70-99) Phosphorus Level 3.8 mg/dL (2.6-4.7) Images Images X-rays were interpreted by myself. He has a displaced intertrochanteric hip fracture. Reports reviewed Assessment/Plan Assessment/Plan I did discuss with this gentleman the risks, benefits, and alternatives to proceeding with closed reduction and intramedullary nailing of his left hip fracture. We will plan on proceeding with surgery this morning. ARPIT GAMBOA II, MD Jan 10, 2019 08:05
--- NOTE | 2019-01-10 08:26 | PDOC ---
PROGRESS NOTES Chief Complaint Chief Complaint A/P: Left intertrochanteric fracture - traumatic, unlikely osteoporotic. Will check vitamin D level. Needs more pain control, muscle relaxants. Delayed surgery from initial admission 01/09 given he is on eliquis and had elevated potassium and creatinine. Ortho consulted KELLEY - Cr 1.6 is not his baseline, states he has good residual renal function in his solitary kidney. Will hydrate for vasomotor nephropathy and consult nephrology Hyperkalemia - will give insulin, albuterol, kayexelate Dyslipidemia - cont statin A-Fib on eliquis, metoprolol, cardizem. Held his eliquis for potential surgery. Will transition to heparin vs post-op eliquis, given his high [id number] and Bindu b on EKG. Consult cardiology. Would recommend cardiac monitoring post-op COPD - stable on inhalers. Diabetes-Type II - insulin while in house. Hold oral antidiabetic meds for now Hypertension - cont bb and ccb CAD s/p stents - has had stress test at [facility] in the past 2 years. 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 History of Present Illness History of Present Illness Mr Blue is a 78 year old male with history of dyslipidemia, A-Fib on eliquis, COPD, Diabetes-Type II, Hypertension, CAD s/p stents, h/o left nephrectomy 2/2 renal ca, neuropathy who presents via EMS with complaint of fall and injury to left hip. Patient states he had an accidental fall in his garage and tripped on air compressor and fell without loss of consciousness or head injury. Patient complaining of severe pain in left hip and rated his pain 10 / 10 and states he was not able to move his left lower extremity or bear weight. Patient denies focal neurodeficit and other injuries. His daughter bedside supplements his h istory. In ED notably had 5.5, Cr 1.6, INR 1.4. He did take his eliquis this morning. He does have cardiac history with stenting, afib. Has had a stress test some time during the past 2 years, goes to [facility] for his cardiac care. For surgery this morning. Renal function stable. Pain reasonably controlled. Eliquis on hold for over 24 hours. No CP or SOB> Vitals Vitals Vital Signs Date Time Temp Pulse Resp B/P (MAP) Pulse Ox O2 Delivery O2 Flow Rate FiO2 01/10/19 07:22 Room Air 01/10/19 07:18 99.1 86 16 142/80 (100) 92 99.1 Physical Exam General: Alert, Oriented X3 Heart: Other (irregular rate) Abdomen: Soft, No tenderness Extremities: No edema, Normal pulses Skin: No rashes, No breakdown, No significant lesion Labs LABS Laboratory Tests Test 01/09/19 12:54 01/09/19 20:48 01/10/19 03:00 White Blood Count 9.5 x10^3/uL (4.0-11.0) Red Blood Count 4.14 x10^6/uL (4.30-5.70) Hemoglobin 13.7 g/dL (13.0-17.5) Hematocrit 40.6 % (39.0-53.0) Mean Corpuscular Volume 98 fL (79-100) Mean Corpuscular Hemoglobin 33 pg (25-35) Mean Corpuscular Hemoglobin Concent 34 g/dL (31-37) Red Cell Distribution Width 14.7 % (11.5-14.5) Platelet Count 162 x10^3/uL (140-400) Neutrophils (%) (Auto) 80 % (31-73) Lymphocytes (%) (Auto) 11 % (24-48) Monocytes (%) (Auto) 7 % (0-9) Eosinophils (%) (Auto) 2 % (0-3) Basophils (%) (Auto) 0 % (0-3) Neutrophils # (Auto) 7.6 x10^3/uL (1.8-7.7) Lymphocytes # (Auto) 1.0 x10^3/uL (1.0-4.8) Monocytes # (Auto) 0.7 x10^3/uL (0.0-1.1) Eosinophils # (Auto) 0.2 x10^3/uL (0.0-0.7) Basophils # (Auto) 0.0 x10^3/uL (0.0-0.2) Prothrombin Time 16.5 SEC (11.7-14.0) 16.8 SEC (11.7-14.0) Prothromb Time International Ratio 1.4 (0.8-1.1) 1.4 (0.8-1.1) Activated Partial Thromboplast Time 32 SEC (24-38) Sodium Level 141 mmol/L (136-145) 140 mmol/L (136-145) Potassium Level 5.5 mmol/L (3.5-5.1) 5.4 mmol/L (3.5-5.1) Chloride Level 105 mmol/L (98-107) 104 mmol/L (98-107) Carbon Dioxide Level 22 mmol/L (21-32) 22 mmol/L (21-32) Anion Gap 14 (6-14) 14 (6-14) Blood Urea Nitrogen 25 mg/dL (8-26) 26 mg/dL (8-26) Creatinine 1.6 mg/dL (0.7-1.3) 1.6 mg/dL (0.7-1.3) Estimated GFR (Cockcroft-Gault) 42.2 42.2 BUN/Creatinine Ratio 16 (6-20) Glucose Level 136 mg/dL (70-99) 152 mg/dL (70-99) Calcium Level 9.3 mg/dL (8.5-10.1) 9.1 mg/dL (8.5-10.1) Total Bilirubin 1.0 mg/dL (0.2-1.0) Aspartate Amino Transf (AST/SGOT) 21 U/L (15-37) Alanine Aminotransferase (ALT/SGPT) 26 U/L (16-63) Alkaline Phosphatase 69 U/L (46-116) Total Protein 7.1 g/dL (6.4-8.2) Albumin 3.6 g/dL (3.4-5.0) 3.3 g/dL (3.4-5.0) Albumin/Globulin Ratio 1.0 (1.0-1.7) Glucose (Fingerstick) 180 mg/dL (70-99) Phosphorus Level 3.8 mg/dL (2.6-4.7) Assessment and Plan Assessmemt and Plan Problems Medical Problems: (1) Chronic atrial fibrillation Status: Acute (2) Closed intertrochanteric fracture of femur Status: Acute (3) Fall at home Status: Acute (4) Hyperkalemia Status: Acute (5) Renal insufficiency Status: Acute Comment Review of Relevant I have reviewed the following items oleg (where applicable) has been applied. Labs Laboratory Tests Test 01/09/19 12:54 01/09/19 20:48 01/10/19 03:00 White Blood Count 9.5 x10^3/uL (4.0-11.0) Red Blood Count 4.14 x10^6/uL (4.30-5.70) Hemoglobin 13.7 g/dL (13.0-17.5) Hematocrit 40.6 % (39.0-53.0) Mean Corpuscular Volume 98 fL (79-100) Mean Corpuscular Hemoglobin 33 pg (25-35) Mean Corpuscular Hemoglobin Concent 34 g/dL (31-37) Red Cell Distribution Width 14.7 % (11.5-14.5) Platelet Count 162 x10^3/uL (140-400) Neutrophils (%) (Auto) 80 % (31-73) Lymphocytes (%) (Auto) 11 % (24-48) Monocytes (%) (Auto) 7 % (0-9) Eosinophils (%) (Auto) 2 % (0-3) Basophils (%) (Auto) 0 % (0-3) Neutrophils # (Auto) 7.6 x10^3/uL (1.8-7.7) Lymphocytes # (Auto) 1.0 x10^3/uL (1.0-4.8) Monocytes # (Auto) 0.7 x10^3/uL (0.0-1.1) Eosinophils # (Auto) 0.2 x10^3/uL (0.0-0.7) Basophils # (Auto) 0.0 x10^3/uL (0.0-0.2) Prothrombin Time 16.5 SEC (11.7-14.0) 16.8 SEC (11.7-14.0) Prothromb Time International Ratio 1.4 (0.8-1.1) 1.4 (0.8-1.1) Activated Partial Thromboplast Time 32 SEC (24-38) Sodium Level 141 mmol/L (136-145) 140 mmol/L (136-145) Potassium Level 5.5 mmol/L (3.5-5.1) 5.4 mmol/L (3.5-5.1) Chloride Level 105 mmol/L (98-107) 104 mmol/L (98-107) Carbon Dioxide Level 22 mmol/L (21-32) 22 mmol/L (21-32) Anion Gap 14 (6-14) 14 (6-14) Blood Urea Nitrogen 25 mg/dL (8-26) 26 mg/dL (8-26) Creatinine 1.6 mg/dL (0.7-1.3) 1.6 mg/dL (0.7-1.3) Estimated GFR (Cockcroft-Gault) 42.2 42.2 BUN/Creatinine Ratio 16 (6-20) Glucose Level 136 mg/dL (70-99) 152 mg/dL (70-99) Calcium Level 9.3 mg/dL (8.5-10.1) 9.1 mg/dL (8.5-10.1) Total Bilirubin 1.0 mg/dL (0.2-1.0) Aspartate Amino Transf (AST/SGOT) 21 U/L (15-37) Alanine Aminotransferase (ALT/SGPT) 26 U/L (16-63) Alkaline Phosphatase 69 U/L (46-116) Total Protein 7.1 g/dL (6.4-8.2) Albumin 3.6 g/dL (3.4-5.0) 3.3 g/dL (3.4-5.0) Albumin/Globulin Ratio 1.0 (1.0-1.7) Glucose (Fingerstick) 180 mg/dL (70-99) Phosphorus Level 3.8 mg/dL (2.6-4.7) Laboratory Tests Test 01/09/19 12:54 01/09/19 20:48 01/10/19 03:00 White Blood Count 9.5 x10^3/uL (4.0-11.0) Red Blood Count 4.14 x10^6/uL (4.30-5.70) Hemoglobin 13.7 g/dL (13.0-17.5) Hematocrit 40.6 % (39.0-53.0) Mean Corpuscular Volume 98 fL (79-100) Mean Corpuscular Hemoglobin 33 pg (25-35) Mean Corpuscular Hemoglobin Concent 34 g/dL (31-37) Red Cell Distribution Width 14.7 % (11.5-14.5) Platelet Count 162 x10^3/uL (140-400) Neutrophils (%) (Auto) 80 % (31-73) Lymphocytes (%) (Auto) 11 % (24-48) Monocytes (%) (Auto) 7 % (0-9) Eosinophils (%) (Auto) 2 % (0-3) Basophils (%) (Auto) 0 % (0-3) Neutrophils # (Auto) 7.6 x10^3/uL (1.8-7.7) Lymphocytes # (Auto) 1.0 x10^3/uL (1.0-4.8) Monocytes # (Auto) 0.7 x10^3/uL (0.0-1.1) Eosinophils # (Auto) 0.2 x10^3/uL (0.0-0.7) Basophils # (Auto) 0.0 x10^3/uL (0.0-0.2) Prothrombin Time 16.5 SEC (11.7-14.0) 16.8 SEC (11.7-14.0) Prothromb Time International Ratio 1.4 (0.8-1.1) 1.4 (0.8-1.1) Activated Partial Thromboplast Time 32 SEC (24-38) Sodium Level 141 mmol/L (136-145) 140 mmol/L (136-145) Potassium Level 5.5 mmol/L (3.5-5.1) 5.4 mmol/L (3.5-5.1) Chloride Level 105 mmol/L (98-107) 104 mmol/L (98-107) Carbon Dioxide Level 22 mmol/L (21-32) 22 mmol/L (21-32) Anion Gap 14 (6-14) 14 (6-14) Blood Urea Nitrogen 25 mg/dL (8-26) 26 mg/dL (8-26) Creatinine 1.6 mg/dL (0.7-1.3) 1.6 mg/dL (0.7-1.3) Estimated GFR (Cockcroft-Gault) 42.2 42.2 BUN/Creatinine Ratio 16 (6-20) Glucose Level 136 mg/dL (70-99) 152 mg/dL (70-99) Calcium Level 9.3 mg/dL (8.5-10.1) 9.1 mg/dL (8.5-10.1) Total Bilirubin 1.0 mg/dL (0.2-1.0) Aspartate Amino Transf (AST/SGOT) 21 U/L (15-37) Alanine Aminotransferase (ALT/SGPT) 26 U/L (16-63) Alkaline Phosphatase 69 U/L (46-116) Total Protein 7.1 g/dL (6.4-8.2) Albumin 3.6 g/dL (3.4-5.0) 3.3 g/dL (3.4-5.0) Albumin/Globulin Ratio 1.0 (1.0-1.7) Glucose (Fingerstick) 180 mg/dL (70-99) Phosphorus Level 3.8 mg/dL (2.6-4.7) Medications Current Medications Fentanyl Citrate (Fentanyl 2ml Vial) 50 mcg 1X ONCE IVP Last administered on 01/09/19at 12:46; Start 01/09/19 at 12:30; Stop 01/09/19 at 12:31; Status DC Orphenadrine Citrate (Norflex) 60 mg 1X ONCE IV Last administered on 01/09/19at 12:46; Start 01/09/19 at 12:30; Stop 01/09/19 at 12:31; Status DC Fentanyl Citrate (Fentanyl 2ml Vial) 50 mcg 1X ONCE IVP Last administered on 01/09/19at 13:37; Start 01/09/19 at 13:30; Stop 01/09/19 at 13:31; Status DC Fentanyl Citrate (Fentanyl 2ml Vial) 50 mcg PRN Q2HR PRN IV PAIN Last administered on 01/10/19at 04:36; Start 01/09/19 at 14:30; Stop 01/10/19 at 04:37; Status DC Ondansetron HCl (Zofran) 4 mg PRN Q4HRS PRN IV NAUSEA/VOMITING; Start 01/09/19 at 15:00 Acetaminophen (Tylenol Supp) 650 mg PRN Q4HRS PRN NE TEMP OVER 100.4F OR MILD PAIN; Start 01/09/19 at 15:00 Docusate Sodium (Colace) 100 mg PRN BID PRN PO CONSTIPATION; Start 01/09/19 at 15:00 Atorvastatin Calcium (Lipitor) 20 mg HS PO Last administered on 01/09/19at 19:37; Start 01/09/19 at 21:00 Diltiazem HCl (Cardizem 24hr Cd) 240 mg DAILY PO ; Start 01/09/19 at 15:30 Tamsulosin HCl (Flomax) 0.4 mg DAILY PO ; Start 01/09/19 at 15:30; Stop 01/09/19 at 16:31; Status DC Tizanidine HCl (Zanaflex) 4 mg PRN Q8HRS PRN PO MUSCLE SPASMS Last administered on 01/10/19at 00:27; Start 01/09/19 at 15:15 Acetaminophen/ Hydrocodone Bitart (Lortab 5/325) 1 tab PRN Q4HRS PRN PO PAIN Last administered on 01/10/19at 00:28; Start 01/09/19 at 15:15 Morphine Sulfate (Morphine Sulfate) 4 mg PRN Q2HR PRN IV PAIN Last administered on 01/10/19at 07:22; Start 01/09/19 at 15:15 Tamsulosin HCl (Flomax) 0.4 mg QHS PO Last administered on 01/09/19at 19:37; Start 01/09/19 at 21:00 Dextrose (Dextrose 50%-Water Syringe) 12.5 gm PRN Q15MIN PRN IV SEE COMMENTS; Start 01/09/19 at 17:00 Cefazolin Sodium/ Dextrose 50 ml @ 100 mls/hr 1X ONCE IV ; Start 01/09/19 at 18:30; Stop 01/09/19 at 18:59; Status Cancel Cefazolin Sodium/ Dextrose 50 ml @ 100 mls/hr 1X ONCE IV ; Start 01/10/19 at 08:00; Stop 01/10/19 at 08:29 Sodium Chloride 1,000 ml @ 75 mls/hr [id number] IV Last administered on 9at 00:36; Start 01/09/19 at 22:30 Insulin Human Lispro (HumaLOG) 0-5 UNITS TIDWMEALS SQ ; Start 01/10/19 at 08:00 Dextrose (Dextrose 50%-Water Syringe) 12.5 gm PRN Q15MIN PRN IV SEE COMMENTS; Start 01/09/19 at 22:30 Metoprolol Succinate (Toprol Xl) 200 mg DAILY PO ; Start 01/10/19 at 09:00 Sodium Polystyrene Sulfonate (Kayexalate) 15 gm 1X ONCE PO Last administered on 01/10/19at 00:28; Start 01/09/19 at 22:45; Stop 01/09/19 at 22:46; Status DC Morphine Sulfate 5 mg/Ketorolac Tromethamine 30 mg/Ropivacaine 60 ml/Epinephrine HCl 0.5 mg/Sodium Chloride 100 ml @ 100 mls/hr 1X ONCE INT ART ; Start 01/10/19 at 07:15; Stop 01/10/19 at 08:14; Status DC Propofol 20 ml @ As Directed STK-MED ONCE IV ; Start 01/10/19 at 07:37; Stop 01/10/19 at 07:37; Status DC Lidocaine HCl (Xylocaine-Mpf 1% 5ml Vial) 5 ml STK-MED ONCE .ROUTE ; Start 01/10/19 at 07:37; Stop 01/10/19 at 07:37; Status DC Dexamethasone Sodium Phosphate (Decadron) 4 mg STK-MED ONCE .ROUTE ; Start 01/10/19 at 07:37; Stop 01/10/19 at 07:37; Status DC Ondansetron HCl (Zofran) 4 mg STK-MED ONCE .ROUTE ; Start 01/10/19 at 07:37; Stop 01/10/19 at 07:37; Status DC Fentanyl Citrate (Fentanyl 2ml Vial) 100 mcg STK-MED ONCE .ROUTE ; Start 01/10/19 at 07:37; Stop 01/10/19 at 07:38; Status DC Warfarin Sodium (Coumadin Per Pharmacy) 1 each PRN DAILY PRN MC SEE COMMENTS; Start 01/10/19 at 08:15; Status UNV Cefazolin Sodium/ Dextrose 50 ml @ 100 mls/hr Q8H IV ; Start 01/10/19 at 08:15; Stop 01/11/19 at 16:44; Status UNV Active Scripts Active Reported Vitamin C (Ascorbic Acid) 1,000 Mg Tablet 1,000 Mg PO DAILY Fish Oil 1,400 Mg Softgel (Dalton-3/Dha/Epa/Fish Oil) 1 Each Capsule.dr 1 Each PO DAILY Centrum Silver Men Tablet (Multivit-Min/FA/Lycopen/Lutein) 1 Each Tablet 1 Each PO DAILY Cinnamon (Cinnamon Bark) 500 Mg Capsule 1,000 Mg PO BID Chromium Picolinate 400 Mcg Tablet 400 Mcg PO DAILY Tamsulosin Hcl 0.4 Mg Cap.er.24h 0.4 Mg PO DAILY Nabumetone 500 Mg Tablet 1 Tab PO BID Metformin Hcl 500 Mg Tablet 1,000 Mg PO BIDWMEALS Metoprolol Succinate ( Xl ) (Metoprolol Succinate) 200 Mg Tab.er.24h 200 Mg PO DAILY Cozaar (Losartan Potassium) 25 Mg Tablet 25 Mg PO DAILY Januvia (Sitagliptin Phosphate) 100 Mg Tablet 100 Mg PO HS Glimepiride 2 Mg Tablet 2 Mg PO BID Furosemide 40 Mg Tablet 40 Mg PO DAILY PRN Eliquis (Apixaban) 5 Mg Tablet 5 Mg PO BID Cartia Xt (Diltiazem Hcl) 240 Mg Cap.er.24h 240 Mg PO DAILY Atorvastatin Calcium 20 Mg Tablet 20 Mg PO HS Aspirin 81 Mg Tab.chew 1 Tab PO DAILY Vitals/I & O Vital Sign - Last 24 Hours 01/09/19 01/09/19 01/09/19 01/09/19 11:58 12:46 12:49 13:15 Temp 98.4 98.4 Pulse 79 78 76 Resp 20 20 20 18 B/P (MAP) 188/86 (120) Pulse Ox 96 96 95 01/09/19 01/09/19 01/09/19 01/09/19 13:16 13:37 13:58 14:10 Pulse 68 Resp 20 20 Pulse Ox 96 O2 Delivery Room Air 01/09/19 01/09/19 01/09/19 01/09/19 14:18 14:27 15:00 19:25 Temp 97.5 97.8 97.8 97.5 97.8 97.8 Pulse 73 67 68 Resp 18 18 18 B/P (MAP) 121/78 (92) 147/87 (107) 119/70 (86) Pulse Ox 93 96 96 O2 Delivery Room Air Room Air Room Air Room Air 01/09/19 01/09/19 01/09/19 01/09/19 19:37 20:00 20:37 21:59 Resp 20 18 20 Pulse Ox 96 94 96 O2 Delivery Room Air Room Air Room Air Room Air 01/09/19 01/10/19 01/10/19 01/10/19 23:22 00:28 00:28 00:58 Temp 98.0 98.0 Pulse 82 Resp 18 20 20 B/P (MAP) 118/79 (92) Pulse Ox 93 93 93 94 O2 Delivery Room Air Room Air Room Air Room Air 01/10/19 01/10/19 01/10/19 01/10/19 01:28 03:12 04:36 07:18 Temp 97.4 99.1 97.4 99.1 Pulse 89 86 Resp 18 18 20 16 B/P (MAP) 141/80 (100) 142/80 (100) Pulse Ox 94 94 94 92 O2 Delivery Room Air Room Air Room Air Room Air 01/10/19 07:22 O2 Delivery Room Air Intake and Output 01/09/19 01/09/19 01/10/19 15:00 23:00 07:00 Intake Total 240 ml Output Total 1300 ml Balance -1060 ml LUIS A BOO MD Jan 10, 2019 08:26
[2019-01-10] MEDS ORDERED: PHENYLEPHRINE in 0.9% NACL PF 1 MG/10 ML SYRINGE. IV ONE (09:06)
[2019-01-10] MEDS ORDERED: SEVOFLURANE 61 TO 120 MINUTES. IH ONE (09:06)
[2019-01-10] MEDS ORDERED: INSULIN LISPRO 100 UNIT/ML 3ML VIAL for OP,RR ONLY. SQ PRN (09:45)
[2019-01-10] MEDS ORDERED: IV RINGERS,LACTATED 1000ML 1,000 ML IV SCH (09:46)
[2019-01-10] MEDS ORDERED: ONDANSETRON PF 4 MG/2 ML VIAL. IV PRN (10:00)
[2019-01-10] MEDS ORDERED: LIDOCAINE 1% PF 2 ML VIAL. ID PRN (10:00)
[2019-01-10] MEDS ORDERED: PROCHLORPERAZINE 10 MG/2 ML VIAL. IV PRN (10:00)
[2019-01-10] MEDS ORDERED: HYDROmorphone 2 MG/ML VIAL IV PRN (10:00)
[2019-01-10] MEDS ORDERED: MORPHINE SULFATE 2 MG/ML VIAL. IV PRN (10:00)
[2019-01-10] MEDS ORDERED: fentaNYL PF VIAL 100 MCG/2 ML VIAL IV PRN ×2 (10:00)
--- NOTE | 2019-01-10 10:05 | NUR ---
Pt. back from PACU via bed per Katty RN and RUDY Bailey, family at bedside. Rates pain at 3/10. L hip drsg CDI, ice pack in place.
[2019-01-10] MEDS: METOPROLOL SUCC 24HR ER 100 MG TAB.ER.24H. PO SCH (10:36)
--- NOTE | 2019-01-10 17:48 | PDOC2 ---
CONSULT Date of Consult Date of Consult DATE: 01/10/19 TIME: 17:41 Reason for Consult Reason for Consult: Atrial fibrillation, coronary artery disease, status post left hip fracture Referring Physician Referring Physician: Dr. Bentley Identification/Chief Complaint Chief Complaint Hip Pain Source Source: Chart review, Patient History of Present Illness Reason for Visit: The patient is a 78-year-old male who had a trip and fall at home. Workup showed an acute intratrochanteric fracture of the left hip and he has been seen by the orthopedic surgery service. He has a history of atrial fibrillation which has been treated with Eliquis which has been on hold since admission. He also has a history of coronary disease with stents, congestive heart failure, COPD and diabetes mellitus. He denies any chest pain, increasing shortness of breath, dizziness or lightheadedness. CT head scan shows no acute changes. Chest x-ray shows no acute changes. Past Medical History Cardiovascular: AFIB, CAD, HTN, Hyperlipidemia Pulmonary: COPD GI: No pertinent hx Heme/Onc: Cancer (Renal Ca) Hepatobiliary: No pertinent hx Psych: No pertinent hx Rheumatologic: No pertinent hx Infectious disease: No pertinent hx ENT: No pertinent hx Renal/: Renal Ca. Endocrine: Diabetes Dermatology: No pertinent hx Past Surgical History Past Surgical History: Appendectomy, Other (Left nephrectomy, coronary stents) Family History Family History: Diabetes, Hypertension Social History No ALCOHOL: rare Drugs: None Current Problem List Problem List Problems Medical Problems: (1) Chronic atrial fibrillation Status: Acute (2) Closed intertrochanteric fracture of femur Status: Acute (3) Fall at home Status: Acute (4) Hyperkalemia Status: Acute (5) Renal insufficiency Status: Acute Current Medications Current Medications Current Medications Fentanyl Citrate (Fentanyl 2ml Vial) 50 mcg 1X ONCE IVP Last administered on 01/09/19at 12:46; Start 01/09/19 at 12:30; Stop 01/09/19 at 12:31; Status DC Orphenadrine Citrate (Norflex) 60 mg 1X ONCE IV Last administered on 01/09/19at 12:46; Start 01/09/19 at 12:30; Stop 01/09/19 at 12:31; Status DC Fentanyl Citrate (Fentanyl 2ml Vial) 50 mcg 1X ONCE IVP Last administered on 01/09/19at 13:37; Start 01/09/19 at 13:30; Stop 01/09/19 at 13:31; Status DC Fentanyl Citrate (Fentanyl 2ml Vial) 50 mcg PRN Q2HR PRN IV PAIN Last administered on 01/10/19at 04:36; Start 01/09/19 at 14:30; Stop 01/10/19 at 04:37; Status DC Ondansetron HCl (Zofran) 4 mg PRN Q4HRS PRN IV NAUSEA/VOMITING; Start 01/09/19 at 15:00 Acetaminophen (Tylenol Supp) 650 mg PRN Q4HRS PRN MA TEMP OVER 100.4F OR MILD P AIN; Start 01/09/19 at 15:00 Docusate Sodium (Colace) 100 mg PRN BID PRN PO CONSTIPATION; Start 01/09/19 at 15:00 Atorvastatin Calcium (Lipitor) 20 mg HS PO Last administered on 01/09/19at 19:37; Start 01/09/19 at 21:00 Diltiazem HCl (Cardizem 24hr Cd) 240 mg DAILY PO Last administered on 01/10/19at 10:34; Start 01/09/19 at 15:30 Tamsulosin HCl (Flomax) 0.4 mg DAILY PO ; Start 01/09/19 at 15:30; Stop 01/09/19 at 16:31; Status DC Tizanidine HCl (Zanaflex) 4 mg PRN Q8HRS PRN PO MUSCLE SPASMS Last administered on 01/10/19at 16:25; Start 01/09/19 at 15:15 Acetaminophen/ Hydrocodone Bitart (Lortab 5/325) 1 tab PRN Q4HRS PRN PO PAIN Last administered on 01/10/19at 15:51; Start 01/09/19 at 15:15 Morphine Sulfate (Morphine Sulfate) 4 mg PRN Q2HR PRN IV PAIN Last administered on 01/10/19at 07:22; Start 01/09/19 at 15:15 Tamsulosin HCl (Flomax) 0.4 mg QHS PO Last administered on 01/09/19at 19:37; Start 01/09/19 at 21:00 Dextrose (Dextrose 50%-Water Syringe) 12.5 gm PRN Q15MIN PRN IV SEE COMMENTS; Start 01/09/19 at 17:00; Stop 01/10/19 at 14:01; Status DC Cefazolin Sodium/ Dextrose 50 ml @ 100 mls/hr 1X ONCE IV ; Start 01/09/19 at 18:30; Stop 01/09/19 at 18:59; Status Cancel Cefazolin Sodium/ Dextrose 50 ml @ 100 mls/hr 1X ONCE IV Last administered on 01/10/19at 07:57; Start 01/10/19 at 08:00; Stop 01/10/19 at 08:29; Status DC Sodium Chloride 1,000 ml @ 75 mls/hr [id number] IV Last administered on 01/10/19at 12:26; Start 01/09/19 at 22:30 Insulin Human Lispro (HumaLOG) 0-5 UNITS TIDWMEALS SQ Last administered on 01/10/19at 17:15; Start 01/10/19 at 08:00 Dextrose (Dextrose 50%-Water Syringe) 12.5 gm PRN Q15MIN PRN IV SEE COMMENTS; Start 01/09/19 at 22:30 Metoprolol Succinate (Toprol Xl) 200 mg DAILY PO Last administered on 01/10/19at 10:36; Start 01/10/19 at 09:00 Sodium Polystyrene Sulfonate (Kayexalate) 15 gm 1X ONCE PO Last administered on 01/10/19at 00:28; Start 01/09/19 at 22:45; Stop 01/09/19 at 22:46; Status DC Morphine Sulfate 5 mg/Ketorolac Tromethamine 30 mg/Ropivacaine 60 ml/Epinephrine HCl 0.5 mg/Sodium Chloride 100 ml @ 100 mls/hr 1X ONCE INT ART Last administered on 01/10/19at 08:28; Start 01/10/19 at 07:15; Stop 01/10/19 at 08:14; Status DC Propofol 20 ml @ As Directed STK-MED ONCE IV ; Start 01/10/19 at 07:37; Stop 01/10/19 at 07:37; Status DC Lidocaine HCl (Xylocaine-Mpf 1% 5ml Vial) 5 ml STK-MED ONCE .ROUTE ; Start 01/10/19 at 07:37; Stop 01/10/19 at 07:37; Status DC Dexamethasone Sodium Phosphate (Decadron) 4 mg STK-MED ONCE .ROUTE ; Start 01/10/19 at 07:37; Stop 01/10/19 at 07:37; Status DC Ondansetron HCl (Zofran) 4 mg STK-MED ONCE .ROUTE ; Start 01/10/19 at 07:37; Stop 01/10/19 at 07:37; Status DC Fentanyl Citrate (Fentanyl 2ml Vial) 100 mcg STK-MED ONCE .ROUTE ; Start 01/10/19 at 07:37; Stop 01/10/19 at 07:38; Status DC Warfarin Sodium (Coumadin Per Pharmacy) 1 each PRN DAILY PRN MC SEE COMMENTS; Start 01/10/19 at 08:15; Status UNV Cefazolin Sodium/ Dextrose 50 ml @ 100 mls/hr Q8H IV Last administered on 01/10/19at 15:51; Start 01/10/19 at 16:00; Stop 01/11/19 at 08:29 Phenylephrine HCl (PHENYLEPHRINE in 0.9% NACL PF) 1 mg STK-MED ONCE IV ; Start 01/10/19 at 09:06; Stop 01/10/19 at 09:06; Status DC Phenylephrine HCl (PHENYLEPHRINE in 0.9% NACL PF) 1 mg STK-MED ONCE IV ; Start 01/10/19 at 09:06; Stop 01/10/19 at 09:06; Status DC Sevoflurane (Ultane) 60 ml STK-MED ONCE IH ; Start 01/10/19 at 09:06; Stop at 09:07; Status DC Insulin Human Lispro (HumaLOG VIAL for OP,RR ONLY) 0-10 units PRN Q1HR PRN SQ PER PROTOCOL Last administered on 01/10/19at 09:40; Start 01/10/19 at 09:45; Stop 01/11/19 at 09:44 Ondansetron HCl (Zofran) 4 mg PRN Q6HRS PRN IV NAUSEA/VOMITING; Start 01/10/19 at 10:00; Stop 01/11/19 at 09:59 Fentanyl Citrate (Fentanyl 2ml Vial) 25 mcg PRN Q5MIN PRN IV MILD PAIN 1-3; Start 01/10/19 at 10:00; Stop 01/11/19 at 09:59 Fentanyl Citrate (Fentanyl 2ml Vial) 50 mcg PRN Q5MIN PRN IV MODERATE TO SEVERE PAIN; Start 01/10/19 at 10:00; Stop 01/11/19 at 09:59 Morphine Sulfate (Morphine Sulfate) 1 mg PRN Q10MIN PRN IV SEVERE PAIN 7-10; Start 01/10/19 at 10:00; Stop 01/11/19 at 09:59 Ringer's Solution 1,000 ml @ 30 mls/hr Q24H IV ; Start 01/10/19 at 09:46; Stop 01/10/19 at 21:45 Lidocaine HCl (Xylocaine-Mpf 1% 2ml Vial) 2 ml PRN 1X PRN ID PRIOR TO IV START; Start 01/10/19 at 10:00; Stop 01/11/19 at 09:59 Hydromorphone HCl (Dilaudid) 0.5 mg PRN Q10MIN PRN IV SEV PAIN, Second choice; Start 01/10/19 at 10:00; Stop 01/11/19 at 09:59 Prochlorperazine Edisylate (Compazine) 5 mg PACU PRN PRN IV NAUSEA, MRX1; Start 01/10/19 at 10:00; Stop 01/11/19 at 09:59 Apixaban (Eliquis) 5 mg BID PO ; Start 01/11/19 at 09:00 Active Scripts Active Reported Vitamin C (Ascorbic Acid) 1,000 Mg Tablet 1,000 Mg PO DAILY Fish Oil 1,400 Mg Softgel ([place]-3/Dha/Epa/Fish Oil) 1 Each Capsule.dr 1 Each PO DAILY Centrum Silver Men Tablet (Multivit-Min/FA/Lycopen/Lutein) 1 Each Tablet 1 Each PO DAILY Cinnamon (Cinnamon Bark) 500 Mg Capsule 1,000 Mg PO BID Chromium Picolinate 400 Mcg Tablet 400 Mcg PO DAILY Tamsulosin Hcl 0.4 Mg Cap.er.24h 0.4 Mg PO DAILY Nabumetone 500 Mg Tablet 1 Tab PO BID Metformin Hcl 500 Mg Tablet 1,000 Mg PO BIDWMEALS Metoprolol Succinate ( Xl ) (Metoprolol Succinate) 200 Mg Tab.er.24h 200 Mg PO DAILY Cozaar (Losartan Potassium) 25 Mg Tablet 25 Mg PO DAILY Januvia (Sitagliptin Phosphate) 100 Mg Tablet 100 Mg PO HS Glimepiride 2 Mg Tablet 2 Mg PO BID Furosemide 40 Mg Tablet 40 Mg PO DAILY PRN Eliquis (Apixaban) 5 Mg Tablet 5 Mg PO BID Cartia Xt (Diltiazem Hcl) 240 Mg Cap.er.24h 240 Mg PO DAILY Atorvastatin Calcium 20 Mg Tablet 20 Mg PO HS Aspirin 81 Mg Tab.chew 1 Tab PO DAILY Allergies Allergies: Coded Allergies: lisinopril (Verified Allergy, Intermediate, 04/14/18) tetanus immune globulin (Verified Allergy, Unknown, 12/08/18) ROS General: YES: Fatigue Musculoskeletal: Yes Other (hip pain) Physical Exam General: mild distress HEENT: Atraumatic Lungs: Clear to auscultation Heart: Other (irregularly irregular) Abdomen: Normal bowel sounds Vitals VITALS Vital Signs Date Time Temp Pulse Resp B/P (MAP) Pulse Ox O2 Delivery O2 Flow Rate FiO2 01/10/19 17:15 Room Air 01/10/19 14:00 86 17 111/58 (75) 2.5 01/10/19 13:00 95 01/10/19 11:00 98.4 98.4 Labs Labs Laboratory Tests Test 01/09/19 12:54 01/09/19 16:45 01/09/19 20:48 01/10/19 03:00 White Blood Count 9.5 x10^3/uL (4.0-11.0) Red Blood Count 4.14 x10^6/uL (4.30-5.70) Hemoglobin 13.7 g/dL (13.0-17.5) Hematocrit 40.6 % (39.0-53.0) Mean Corpuscular Volume 98 fL (79-100) Mean Corpuscular Hemoglobin 33 pg (25-35) Mean Corpuscular Hemoglobin Concent 34 g/dL (31-37) Red Cell Distribution Width 14.7 % (11.5-14.5) Platelet Count 162 x10^3/uL (140-400) Neutrophils (%) (Auto) 80 % (31-73) Lymphocytes (%) (Auto) 11 % (24-48) Monocytes (%) (Auto) 7 % (0-9) Eosinophils (%) (Auto) 2 % (0-3) Basophils (%) (Auto) 0 % (0-3) Neutrophils # (Auto) 7.6 x10^3/uL (1.8-7.7) Lymphocytes # (Auto) 1.0 x10^3/uL (1.0-4.8) Monocytes # (Auto) 0.7 x10^3/uL (0.0-1.1) Eosinophils # (Auto) 0.2 x10^3/uL (0.0-0.7) Basophils # (Auto) 0.0 x10^3/uL (0.0-0.2) Prothrombin Time 16.5 SEC (11.7-14.0) 16.8 SEC (11.7-14.0) Prothromb Time International Ratio 1.4 (0.8-1.1) 1.4 (0.8-1.1) Activated Partial Thromboplast Time 32 SEC (24-38) Sodium Level 141 mmol/L (136-145) 140 mmol/L (136-145) Potassium Level 5.5 mmol/L (3.5-5.1) 5.4 mmol/L (3.5-5.1) Chloride Level 105 mmol/L (98-107) 104 mmol/L (98-107) Carbon Dioxide Level 22 mmol/L (21-32) 22 mmol/L (21-32) Anion Gap 14 (6-14) 14 (6-14) Blood Urea Nitrogen 25 mg/dL (8-26) 26 mg/dL (8-26) Creatinine 1.6 mg/dL (0.7-1.3) 1.6 mg/dL (0.7-1.3) Estimated GFR (Cockcroft-Gault) 42.2 42.2 BUN/Creatinine Ratio 16 (6-20) Glucose Level 136 mg/dL (70-99) 152 mg/dL (70-99) Calcium Level 9.3 mg/dL (8.5-10.1) 9.1 mg/dL (8.5-10.1) Total Bilirubin 1.0 mg/dL (0.2-1.0) Aspartate Amino Transf (AST/SGOT) 21 U/L (15-37) Alanine Aminotransferase (ALT/SGPT) 26 U/L (16-63) Alkaline Phosphatase 69 U/L (46-116) Total Protein 7.1 g/dL (6.4-8.2) Albumin 3.6 g/dL (3.4-5.0) 3.3 g/dL (3.4-5.0) Albumin/Globulin Ratio 1.0 (1.0-1.7) Nasal Screen MRSA (PCR) Negative (Negative) Glucose (Fingerstick) 180 mg/dL (70-99) Phosphorus Level 3.8 mg/dL (2.6-4.7) Test 01/10/19 09:28 01/10/19 11:54 01/10/19 16:49 Glucose (Fingerstick) 195 mg/dL (70-99) 190 mg/dL (70-99) 299 mg/dL (70-99) Laboratory Tests Test 01/09/19 20:48 01/10/19 03:00 01/10/19 09:28 01/10/19 11:54 Glucose (Fingerstick) 180 mg/dL (70-99) 195 mg/dL (70-99) 190 mg/dL (70-99) Prothrombin Time 16.8 SEC (11.7-14.0) Prothromb Time International Ratio 1.4 (0.8-1.1) Sodium Level 140 mmol/L (136-145) Potassium Level 5.4 mmol/L (3.5-5.1) Chloride Level 104 mmol/L (98-107) Carbon Dioxide Level 22 mmol/L (21-32) Anion Gap 14 (6-14) Blood Urea Nitrogen 26 mg/dL (8-26) Creatinine 1.6 mg/dL (0.7-1.3) Estimated GFR (Cockcroft-Gault) 42.2 Glucose Level 152 mg/dL (70-99) Calcium Level 9.1 mg/dL (8.5-10.1) Phosphorus Level 3.8 mg/dL (2.6-4.7) Albumin 3.3 g/dL (3.4-5.0) Test 01/10/19 16:49 Glucose (Fingerstick) 299 mg/dL (70-99) Images Images CT head scan shows no acute changes. Chest x-ray shows no acute changes. Hip films show acute intertrochanteric fracture of the left hip Assessment/Plan Assessment/Plan 1. Fractured left hip. Repair as per the orthopedic surgery service. 2. Atrial fibrillation. Rate controlled. Eliquis been held for surgery. Will resume anticoagulation post surgery with discussion through the orthopedic service. 3. Coronary artery disease with a history of stenting. No chest pain. Continue present treatments. 4. COPD. Well-controlled. 5. Hyperlipidemia. Continue medical treatment. We'll check lab. 6. Diabetes mellitus. As per the primary service. Thank you for allowing us to participate in the care of your patient. BETH MCMAHON MD Jan 10, 2019 17:48
[2019-01-10] MEDS ORDERED: IV NORMAL SALINE 500ML BAG 500 ML IV ONE (19:10)
--- NOTE | 2019-01-10 19:18 | NUR ---
Approx. 0635 CNAs attempted to assist pt back to bed. Pt had dec LOC, BP 76/43. RR called. Pt. assisted back to bed via lift. Dec urine output noted, 150cc noted. 1909 BP 77/44. Pt. Responsive, c/o L hip pain, states he is feeling better. Dr. Hatfield notified , orders recieved. Addendum: 01/10/19 at 1937 by PROSPER CUNHA RN INcorrect time noted. Episode occurred at 1835. Pt's BS was 293 at 0848.
[2019-01-10 19:22] LABS: BASO % 0 % (0-3); EOS % 0 % (0-3); HEMATOCRIT 29.8 % (39.0-53.0); HEMOGLOBIN 9.7 g/dL (13.0-17.5); LYMPH # 0.6 x10^3/uL (1.0-4.8); LYMPH % 5 % (24-48); MEAN CORPUSCULAR HEMOGLOBIN 33 pg (25-35); MEAN CORPUSCULAR HGB CONC 33 g/dL (31-37); MEAN CORPUSCULAR VOLUME 100 fL (79-100); MONO # 1.1 x10^3/uL (0.0-1.1); MONO % 9 % (0-9); NEUT # 11.4 x10^3/uL (1.8-7.7); NEUT % 87 % (31-73); PLATELET COUNT 144 x10^3/uL (140-400); RED BLOOD COUNT 2.98 x10^6/uL (4.30-5.70); RED CELL DISTRIBUTION WIDTH 14.8 % (11.5-14.5); WHITE BLOOD COUNT 13.1 x10^3/uL (4.0-11.0)
--- NOTE | 2019-01-10 20:08 | CONS ---
DATE OF CONSULTATION: 01/10/2019 REQUESTING PHYSICIAN: Hospitalist. REASON FOR CONSULTATION: Renal failure. HISTORY OF PRESENT ILLNESS: This is a 78-year-old gentleman with history of diabetes mellitus and hypertension. He also has history of renal cell carcinoma, status post left radical nephrectomy. He is currently admitted with left hip fracture status post operative intervention for the same. Currently, has GFR of 42 mL per minute. In this setting, Nephrology evaluation is requested. PAST MEDICAL HISTORY: Diabetes mellitus; hypertension; renal cell carcinoma, status post left nephrectomy; chronic kidney disease, stage 3; coronary artery disease, status post stenting; COPD; atrial fibrillation, on Eliquis; hyperlipidemia; obesity and appendectomy. ALLERGIES: LISINOPRIL, TETANUS IMMUNOGLOBULIN. MEDICATIONS: Reviewed per medication list. FAMILY HISTORY: Noncontributory. SOCIAL HISTORY: , resides with . REVIEW OF SYSTEMS: No headache, sinus problem, nasal drainage, epistaxis, change in vision or hearing. No difficulty swallowing. No fever, chills, cough, sputum production, or hemoptysis. No chest pain, shortness of breath, PND, orthopnea, dyspnea on exertion. No abdominal pain. No nausea, vomiting or diarrhea, seizures. He does have history of renal cell carcinoma. PHYSICAL EXAMINATION: GENERAL APPEARANCE: The patient is awake, conversant. He is obese. HEENT: Full facies, otherwise clear. NECK: No increased JVD. No thyromegaly, mass or adenopathy. LUNGS: Clear. CARDIAC: Without S3 or rub. ABDOMEN: Obese. Bowel sounds are present. EXTREMITIES: Without edema. NEUROLOGIC: Nonfocal, nonlocalized. PSYCHIATRIC: Good attention to detail, appropriate affect. LABORATORY DATA: Hemoglobin 13.7, hematocrit 40.6. Sodium 140, potassium 5.4, chloride 104, CO2 of 22, BUN 26, creatinine 1.6, GFR 42. IMPRESSION: 1. Chronic kidney disease, stage 3, secondary to uninephric state, status post left radical nephrectomy ____. 2. Hyperkalemia -- postoperative. RECOMMENDATIONS: 1. Low-potassium diet. 2. Maintain fluid balance. 3. We will follow. HATTIE REYNOLDS MD DR: MISAEL/della JOB#: [id number] / [id number]
[2019-01-10 20:15] LABS: % BANDS 8 % (0-9); % LYMPHS 1 % (24-48); % MONOS 6 % (0-10); % SEGS 85 % (35-66)
[2019-01-10 20:16] LABS: PLT ESTIMATE DECREASED (ADEQUATE)
[2019-01-10] MEDS: TAMSULOSIN 0.4 MG CAP.ER.24H. PO SCH (20:21)
[2019-01-10] MEDS: ATORVASTATIN CALCIUM 20 MG TABLET PO SCH (20:21)
--- NOTE | 2019-01-10 21:12 | NUR ---
BP 77/41 HR 71, O2 sat % at 2l/nc, Dr Khan paged awaiting callback, Dr Gudino notified of current condition.
[2019-01-10] MEDS ORDERED: IV NORMAL SALINE 1000ML BAG 1,000 ML IV ONE (21:30)
[2019-01-10 21:56] LABS: BILIRUBIN,URINE SMALL (NEG); CLARITY,URINE CLEAR; COLOR,URINE AMBER; NITRITE,URINE NEGATIVE (NEG); PROTEIN,URINE NEGATIVE (NEG-TRACE); UROBILINOGEN,URINE 0.2 mg/dL (0.2 mg/dL)
[2019-01-10 22:01] LABS: BACTERIA,URINE 0 /HPF (0-FEW); HYALINE CASTS, URINE MANY /HPF; RBC,URINE TNTC /HPF (0-2); SQUAMOUS EPITHELIAL CELL,UR FEW /LPF
--- NOTE | 2019-01-10 23:21 | NUR ---
2300 pt transferred to ICU per Dr Hatfield's order.
--- NOTE | 2019-01-10 23:30 | NUR ---
Patient transfered from 4N to ICU bed 111 for low BP. Patient alert and oriented and in no distress. Patient moved from 4N bed to ICU bed x 4 person assist. 2LNC. VSS, BP 155/81. Drsg to left hip with some shadow drainage noted. Patient c/o left hip pain at 8/10 on scale. Will give morphine IV per PRN order. Call light is within reach. Will monitor.
[2019-01-11] VITALS (27 sets, daily range): BP systolic 54–152; BP diastolic 33–82
[2019-01-11] MEDS: tiZANidine 4 MG TABLET. PO PRN ×3 (00:10→20:33)
[2019-01-11] MEDS: IV NORMAL SALINE 1000ML BAG 1,000 ML IV SCH ×3 (00:10→22:02)
[2019-01-11] MEDS: MORPHINE SULFATE 4 MG/ML VIAL. IV PRN (04:05)
[2019-01-11 05:03] LABS: BASO % 0 % (0-3); EOS % 0 % (0-3); HEMATOCRIT 25.1 % (39.0-53.0); HEMOGLOBIN 8.4 g/dL (13.0-17.5); LYMPH # 0.6 x10^3/uL (1.0-4.8); LYMPH % 5 % (24-48); MEAN CORPUSCULAR HEMOGLOBIN 33 pg (25-35); MEAN CORPUSCULAR HGB CONC 34 g/dL (31-37); MEAN CORPUSCULAR VOLUME 98 fL (79-100); MONO % 9 % (0-9); NEUT # 9.4 x10^3/uL (1.8-7.7); NEUT % 86 % (31-73); PLATELET COUNT 114 x10^3/uL (140-400); RED BLOOD COUNT 2.55 x10^6/uL (4.30-5.70); RED CELL DISTRIBUTION WIDTH 14.8 % (11.5-14.5)
[2019-01-11 05:29] LABS: ALBUMIN 2.6 g/dL (3.4-5.0); CALCIUM 7.8 mg/dL (8.5-10.1); CHOLESTEROL/HDL RATIO 2.8; CREATININE 1.7 mg/dL (0.7-1.3); GFR 39.4; PHOSPHORUS 4.2 mg/dL (2.6-4.7); POTASSIUM 4.7 mmol/L (3.5-5.1)
--- NOTE | 2019-01-11 07:26 | EKG ---
[facility] [address] [place] [address] Test Date: 2019-01-09 Test Time: 12:20:16 Pat Name: ELISABETH LUKE Department: Room: 111 1 Gender: M [employer] Laboratory Manager: : 1940 Requested By: LUIS A BOO Order Number: [id number] Reading MD: Measurements Intervals [place] Rate: 74 P: OK: QRS: -69 QRSD: 88 T: 35 QT: 368 QTc: 409 Interpretive Statements IRREGULAR RHYTHM, NO P-WAVE FOUND ABNORMAL LEFT AXIS DEVIATION R-S TRANSITION ZONE IN V LEADS DISPLACED TO THE LEFT LOW LIMB LEAD VOLTAGE LEFT ANTERIOR FASCICULAR BLOCK ABNORMAL ECG RI6.01 No previous ECG available for comparison
--- NOTE | 2019-01-11 07:57 | NUR ---
Pt transferred to ICU and will require new PT/OT eval and treat orders to resume therapy services. Will await new orders. Addendum: 01/11/19 at 0759 by ALEJO LU PT Amended: Links added.
[2019-01-11] MEDS: INSULIN LISPRO 300 UNITS/3 ML VIAL. SQ SCH ×3 (08:33→17:37)
[2019-01-11] MEDS: APIXABAN 5 MG TABLET. PO SCH ×2 (08:34→20:33)
[2019-01-11] MEDS: HYDROcodone/APAP 5/325MG 1 TAB TABLET PO PRN ×2 (08:35→19:15)
[2019-01-11] MEDS: METOPROLOL SUCC 24HR ER 100 MG TAB.ER.24H. PO SCH (09:00)
--- NOTE | 2019-01-11 09:00 | NUR ---
Metoprolol not given d/t blood pressure low through the night requiring fluid boluses and transfer to ICU.
[2019-01-11] MEDS: ANTI-COAG MONITOR BY PHARMACY. MC PRN (09:46)
[2019-01-11] MEDS: diazePAM 2 MG TABLET PO PRN ×2 (09:57→16:14)
--- NOTE | 2019-01-11 10:05 | PDOC ---
ORTHO PROGRESS NOTES Subjective Patient was transferred the ICU yesterday for blood pressure concerns. He reports that he is having a lot of muscle spasm but otherwise feels he is doing okay. Vitals Vital Signs Date Time Temp Pulse Resp B/P (MAP) Pulse Ox O2 Delivery O2 Flow Rate FiO2 01/11/19 09:00 102 18 120/58 (78) 98 Nasal Cannula 2.0 01/11/19 07:00 97.9 97.9 Labs Laboratory Tests Test 01/09/19 12:54 01/09/19 16:45 01/09/19 20:48 01/10/19 03:00 White Blood Count 9.5 x10^3/uL (4.0-11.0) Red Blood Count 4.14 x10^6/uL (4.30-5.70) Hemoglobin 13.7 g/dL (13.0-17.5) Hematocrit 40.6 % (39.0-53.0) Mean Corpuscular Volume 98 fL (79-100) Mean Corpuscular Hemoglobin 33 pg (25-35) Mean Corpuscular Hemoglobin Concent 34 g/dL (31-37) Red Cell Distribution Width 14.7 % (11.5-14.5) Platelet Count 162 x10^3/uL (140-400) Neutrophils (%) (Auto) 80 % (31-73) Lymphocytes (%) (Auto) 11 % (24-48) Monocytes (%) (Auto) 7 % (0-9) Eosinophils (%) (Auto) 2 % (0-3) Basophils (%) (Auto) 0 % (0-3) Neutrophils # (Auto) 7.6 x10^3/uL (1.8-7.7) Lymphocytes # (Auto) 1.0 x10^3/uL (1.0-4.8) Monocytes # (Auto) 0.7 x10^3/uL (0.0-1.1) Eosinophils # (Auto) 0.2 x10^3/uL (0.0-0.7) Basophils # (Auto) 0.0 x10^3/uL (0.0-0.2) Prothrombin Time 16.5 SEC (11.7-14.0) 16.8 SEC (11.7-14.0) Prothromb Time International Ratio 1.4 (0.8-1.1) 1.4 (0.8-1.1) Activated Partial Thromboplast Time 32 SEC (24-38) Sodium Level 141 mmol/L (136-145) 140 mmol/L (136-145) Potassium Level 5.5 mmol/L (3.5-5.1) 5.4 mmol/L (3.5-5.1) Chloride Level 105 mmol/L (98-107) 104 mmol/L (98-107) Carbon Dioxide Level 22 mmol/L (21-32) 22 mmol/L (21-32) Anion Gap 14 (6-14) 14 (6-14) Blood Urea Nitrogen 25 mg/dL (8-26) 26 mg/dL (8-26) Creatinine 1.6 mg/dL (0.7-1.3) 1.6 mg/dL (0.7-1.3) Estimated GFR (Cockcroft-Gault) 42.2 42.2 BUN/Creatinine Ratio 16 (6-20) Glucose Level 136 mg/dL (70-99) 152 mg/dL (70-99) Calcium Level 9.3 mg/dL (8.5-10.1) 9.1 mg/dL (8.5-10.1) Total Bilirubin 1.0 mg/dL (0.2-1.0) Aspartate Amino Transf (AST/SGOT) 21 U/L (15-37) Alanine Aminotransferase (ALT/SGPT) 26 U/L (16-63) Alkaline Phosphatase 69 U/L (46-116) Total Protein 7.1 g/dL (6.4-8.2) Albumin 3.6 g/dL (3.4-5.0) 3.3 g/dL (3.4-5.0) Albumin/Globulin Ratio 1.0 (1.0-1.7) Nasal Screen MRSA (PCR) Negative (Negative) Glucose (Fingerstick) 180 mg/dL (70-99) Phosphorus Level 3.8 mg/dL (2.6-4.7) Test 01/10/19 09:28 01/10/19 11:54 01/10/19 16:49 01/10/19 18:48 Glucose (Fingerstick) 195 mg/dL (70-99) 190 mg/dL (70-99) 299 mg/dL (70-99) 293 mg/dL (70-99) Test 01/10/19 19:00 01/10/19 19:15 01/10/19 20:41 01/10/19 21:45 Glucose (Fingerstick) 278 mg/dL (70-99) 266 mg/dL (70-99) White Blood Count 13.1 x10^3/uL (4.0-11.0) Red Blood Count 2.98 x10^6/uL (4.30-5.70) Hemoglobin 9.7 g/dL (13.0-17.5) Hematocrit 29.8 % (39.0-53.0) Mean Corpuscular Volume 100 fL (79-100) Mean Corpuscular Hemoglobin 33 pg (25-35) Mean Corpuscular Hemoglobin Concent 33 g/dL (31-37) Red Cell Distribution Width 14.8 % (11.5-14.5) Platelet Count 144 x10^3/uL (140-400) Neutrophils (%) (Auto) 87 % (31-73) Lymphocytes (%) (Auto) 5 % (24-48) Monocytes (%) (Auto) 9 % (0-9) Eosinophils (%) (Auto) 0 % (0-3) Basophils (%) (Auto) 0 % (0-3) Neutrophils # (Auto) 11.4 x10^3/uL (1.8-7.7) Lymphocytes # (Auto) 0.6 x10^3/uL (1.0-4.8) Monocytes # (Auto) 1.1 x10^3/uL (0.0-1.1) Eosinophils # (Auto) 0.0 x10^3/uL (0.0-0.7) Basophils # (Auto) 0.0 x10^3/uL (0.0-0.2) Segmented Neutrophils % 85 % (35-66) Band Neutrophils % 8 % (0-9) Lymphocytes % 1 % (24-48) Monocytes % 6 % (0-10) Platelet Estimate Decreased (ADEQUATE) Urine Collection Type U cath Urine Color Mayra Urine Clarity Clear Urine pH 5.0 Urine Specific [place] >=1.030 Urine Protein Negative mg/dL (NEG-TRACE) Urine Glucose (UA) Negative mg/dL (NEG) Urine Ketones (Stick) Trace mg/dL (NEG) Urine Blood Moderate (NEG) Urine Nitrite Negative (NEG) Urine Bilirubin Small (NEG) Urine Urobilinogen Dipstick 0.2 mg/dL (0.2 mg/dL) Urine Leukocyte Esterase Negative (NEG) Urine RBC Tntc /HPF (0-2) Urine WBC 1-4 /HPF (0-4) Urine Squamous Epithelial Cells Few /LPF Urine Bacteria 0 /HPF (0-FEW) Urine Hyaline Casts Many /HPF Urine Mucus Mod /LPF Test 01/11/19 04:30 White Blood Count 11.0 x10^3/uL (4.0-11.0) Red Blood Count 2.55 x10^6/uL (4.30-5.70) Hemoglobin 8.4 g/dL (13.0-17.5) Hematocrit 25.1 % (39.0-53.0) Mean Corpuscular Volume 98 fL (79-100) Mean Corpuscular Hemoglobin 33 pg (25-35) Mean Corpuscular Hemoglobin Concent 34 g/dL (31-37) Red Cell Distribution Width 14.8 % (11.5-14.5) Platelet Count 114 x10^3/uL (140-400) Neutrophils (%) (Auto) 86 % (31-73) Lymphocytes (%) (Auto) 5 % (24-48) Monocytes (%) (Auto) 9 % (0-9) Eosinophils (%) (Auto) 0 % (0-3) Basophils (%) (Auto) 0 % (0-3) Neutrophils # (Auto) 9.4 x10^3/uL (1.8-7.7) Lymphocytes # (Auto) 0.6 x10^3/uL (1.0-4.8) Monocytes # (Auto) 1.0 x10^3/uL (0.0-1.1) Eosinophils # (Auto) 0.0 x10^3/uL (0.0-0.7) Basophils # (Auto) 0.0 x10^3/uL (0.0-0.2) Prothrombin Time 17.0 SEC (11.7-14.0) Prothromb Time International Ratio 1.4 (0.8-1.1) Sodium Level 140 mmol/L (136-145) Potassium Level 4.7 mmol/L (3.5-5.1) Chloride Level 106 mmol/L (98-107) Carbon Dioxide Level 23 mmol/L (21-32) Anion Gap 11 (6-14) Blood Urea Nitrogen 32 mg/dL (8-26) Creatinine 1.7 mg/dL (0.7-1.3) Estimated GFR (Cockcroft-Gault) 39.4 Glucose Level 200 mg/dL (70-99) Calcium Level 7.8 mg/dL (8.5-10.1) Phosphorus Level 4.2 mg/dL (2.6-4.7) Albumin 2.6 g/dL (3.4-5.0) Triglycerides Level 89 mg/dL (0-150) Cholesterol Level 96 mg/dL (0-200) LDL Cholesterol, Calculated 44 mg/dL (0-100) VLDL Cholesterol, Calculated 18 mg/dL (0-40) Non-HDL Cholesterol Calculated 62 mg/dL (0-129) HDL Cholesterol 34 mg/dL (40-60) Cholesterol/HDL Ratio 2.8 Laboratory Tests Test 01/10/19 11:54 01/10/19 16:49 01/10/19 18:48 01/10/19 19:00 Glucose (Fingerstick) 190 mg/dL (70-99) 299 mg/dL (70-99) 293 mg/dL (70-99) 278 mg/dL (70-99) Test 01/10/19 19:15 01/10/19 20:41 01/10/19 21:45 01/11/19 04:30 White Blood Count 13.1 x10^3/uL (4.0-11.0) 11.0 x10^3/uL (4.0-11.0) Red Blood Count 2.98 x10^6/uL (4.30-5.70) 2.55 x10^6/uL (4.30-5.70) Hemoglobin 9.7 g/dL (13.0-17.5) 8.4 g/dL (13.0-17.5) Hematocrit 29.8 % (39.0-53.0) 25.1 % (39.0-53.0) Mean Corpuscular Volume 100 fL (79-100) 98 fL (79-100) Mean Corpuscular Hemoglobin 33 pg (25-35) 33 pg (25-35) Mean Corpuscular Hemoglobin Concent 33 g/dL (31-37) 34 g/dL (31-37) Red Cell Distribution Width 14.8 % (11.5-14.5) 14.8 % (11.5-14.5) Platelet Count 144 x10^3/uL (140-400) 114 x10^3/uL (140-400) Neutrophils (%) (Auto) 87 % (31-73) 86 % (31-73) Lymphocytes (%) (Auto) 5 % (24-48) 5 % (24-48) Monocytes (%) (Auto) 9 % (0-9) 9 % (0-9) Eosinophils (%) (Auto) 0 % (0-3) 0 % (0-3) Basophils (%) (Auto) 0 % (0-3) 0 % (0-3) Neutrophils # (Auto) 11.4 x10^3/uL (1.8-7.7) 9.4 x10^3/uL (1.8-7.7) Lymphocytes # (Auto) 0.6 x10^3/uL (1.0-4.8) 0.6 x10^3/uL (1.0-4.8) Monocytes # (Auto) 1.1 x10^3/uL (0.0-1.1) 1.0 x10^3/uL (0.0-1.1) Eosinophils # (Auto) 0.0 x10^3/uL (0.0-0.7) 0.0 x10^3/uL (0.0-0.7) Basophils # (Auto) 0.0 x10^3/uL (0.0-0.2) 0.0 x10^3/uL (0.0-0.2) Segmented Neutrophils % 85 % (35-66) Band Neutrophils % 8 % (0-9) Lymphocytes % 1 % (24-48) Monocytes % 6 % (0-10) Platelet Estimate Decreased (ADEQUATE) Glucose (Fingerstick) 266 mg/dL (70-99) Urine Collection Type U cath Urine Color Mayra Urine Clarity Clear Urine pH 5.0 Urine Specific [place] >=1.030 Urine Protein Negative mg/dL (NEG-TRACE) Urine Glucose (UA) Negative mg/dL (NEG) Urine Ketones (Stick) Trace mg/dL (NEG) Urine Blood Moderate (NEG) Urine Nitrite Negative (NEG) Urine Bilirubin Small (NEG) Urine Urobilinogen Dipstick 0.2 mg/dL (0.2 mg/dL) Urine Leukocyte Esterase Negative (NEG) Urine RBC Tntc /HPF (0-2) Urine WBC 1-4 /HPF (0-4) Urine Squamous Epithelial Cells Few /LPF Urine Bacteria 0 /HPF (0-FEW) Urine Hyaline Casts Many /HPF Urine Mucus Mod /LPF Prothrombin Time 17.0 SEC (11.7-14.0) Prothromb Time International Ratio 1.4 (0.8-1.1) Sodium Level 140 mmol/L (136-145) Potassium Level 4.7 mmol/L (3.5-5.1) Chloride Level 106 mmol/L (98-107) Carbon Dioxide Level 23 mmol/L (21-32) Anion Gap 11 (6-14) Blood Urea Nitrogen 32 mg/dL (8-26) Creatinine 1.7 mg/dL (0.7-1.3) Estimated GFR (Cockcroft-Gault) 39.4 Glucose Level 200 mg/dL (70-99) Calcium Level 7.8 mg/dL (8.5-10.1) Phosphorus Level 4.2 mg/dL (2.6-4.7) Albumin 2.6 g/dL (3.4-5.0) Triglycerides Level 89 mg/dL (0-150) Cholesterol Level 96 mg/dL (0-200) LDL Cholesterol, Calculated 44 mg/dL (0-100) VLDL Cholesterol, Calculated 18 mg/dL (0-40) Non-HDL Cholesterol Calculated 62 mg/dL (0-129) HDL Cholesterol 34 mg/dL (40-60) Cholesterol/HDL Ratio 2.8 Notes He is awake and alert. HEENT normal motor and sensation are present in his leg. His incisions have an expected amount of bloody drainage around them. Assessment and Plan We can hold off on PT and OT until he is back on the [facility] floor. ARPIT GAMBOA II, MD Jan 11, 2019 10:05
--- NOTE | 2019-01-11 10:59 | PDOC ---
CARDIO Progress Notes Date and Time Date of Service 01/11/19 Time of Evaluation 1040 Subjective Subjective: No Chest Pain, No shortness of breath, No Palpitations, Other (left hip pain) Vitals Vitals Vital Signs Date Time Temp Pulse Resp B/P (MAP) Pulse Ox O2 Delivery O2 Flow Rate FiO2 01/11/19 09:00 102 18 120/58 (78) 98 Nasal Cannula 2.0 01/11/19 07:00 97.9 97.9 Weight Weight [ ] Input and Output Intake and Output Intake and Output 01/11/19 07:00 Intake Total 5433 ml Output Total 1320 ml Balance 4113 ml Intake Oral 670 ml IV Total 4763 ml Output Urine Total 1020 ml Estimated Blood Loss 300 ml Laboratory Labs Laboratory Tests Test 01/10/19 11:54 01/10/19 16:49 01/10/19 18:48 01/10/19 19:00 Glucose (Fingerstick) 190 mg/dL (70-99) 299 mg/dL (70-99) 293 mg/dL (70-99) 278 mg/dL (70-99) Test 01/10/19 19:15 01/10/19 20:41 01/10/19 21:45 01/11/19 04:30 White Blood Count 13.1 x10^3/uL (4.0-11.0) 11.0 x10^3/uL (4.0-11.0) Red Blood Count 2.98 x10^6/uL (4.30-5.70) 2.55 x10^6/uL (4.30-5.70) Hemoglobin 9.7 g/dL (13.0-17.5) 8.4 g/dL (13.0-17.5) Hematocrit 29.8 % (39.0-53.0) 25.1 % (39.0-53.0) Mean Corpuscular Volume 100 fL (79-100) 98 fL (79-100) Mean Corpuscular Hemoglobin 33 pg (25-35) 33 pg (25-35) Mean Corpuscular Hemoglobin Concent 33 g/dL (31-37) 34 g/dL (31-37) Red Cell Distribution Width 14.8 % (11.5-14.5) 14.8 % (11.5-14.5) Platelet Count 144 x10^3/uL (140-400) 114 x10^3/uL (140-400) Neutrophils (%) (Auto) 87 % (31-73) 86 % (31-73) Lymphocytes (%) (Auto) 5 % (24-48) 5 % (24-48) Monocytes (%) (Auto) 9 % (0-9) 9 % (0-9) Eosinophils (%) (Auto) 0 % (0-3) 0 % (0-3) Basophils (%) (Auto) 0 % (0-3) 0 % (0-3) Neutrophils # (Auto) 11.4 x10^3/uL (1.8-7.7) 9.4 x10^3/uL (1.8-7.7) Lymphocytes # (Auto) 0.6 x10^3/uL (1.0-4.8) 0.6 x10^3/uL (1.0-4.8) Monocytes # (Auto) 1.1 x10^3/uL (0.0-1.1) 1.0 x10^3/uL (0.0-1.1) Eosinophils # (Auto) 0.0 x10^3/uL (0.0-0.7) 0.0 x10^3/uL (0.0-0.7) Basophils # (Auto) 0.0 x10^3/uL (0.0-0.2) 0.0 x10^3/uL (0.0-0.2) Segmented Neutrophils % 85 % (35-66) Band Neutrophils % 8 % (0-9) Lymphocytes % 1 % (24-48) Monocytes % 6 % (0-10) Platelet Estimate Decreased (ADEQUATE) Glucose (Fingerstick) 266 mg/dL (70-99) Urine Collection Type U cath Urine Color Mayra Urine Clarity Clear Urine pH 5.0 Urine Specific [place] >=1.030 Urine Protein Negative mg/dL (NEG-TRACE) Urine Glucose (UA) Negative mg/dL (NEG) Urine Ketones (Stick) Trace mg/dL (NEG) Urine Blood Moderate (NEG) Urine Nitrite Negative (NEG) Urine Bilirubin Small (NEG) Urine Urobilinogen Dipstick 0.2 mg/dL (0.2 mg/dL) Urine Leukocyte Esterase Negative (NEG) Urine RBC Tntc /HPF (0-2) Urine WBC 1-4 /HPF (0-4) Urine Squamous Epithelial Cells Few /LPF Urine Bacteria 0 /HPF (0-FEW) Urine Hyaline Casts Many /HPF Urine Mucus Mod /LPF Prothrombin Time 17.0 SEC (11.7-14.0) Prothromb Time International Ratio 1.4 (0.8-1.1) Sodium Level 140 mmol/L (136-145) Potassium Level 4.7 mmol/L (3.5-5.1) Chloride Level 106 mmol/L (98-107) Carbon Dioxide Level 23 mmol/L (21-32) Anion Gap 11 (6-14) Blood Urea Nitrogen 32 mg/dL (8-26) Creatinine 1.7 mg/dL (0.7-1.3) Estimated GFR (Cockcroft-Gault) 39.4 Glucose Level 200 mg/dL (70-99) Calcium Level 7.8 mg/dL (8.5-10.1) Phosphorus Level 4.2 mg/dL (2.6-4.7) Albumin 2.6 g/dL (3.4-5.0) Triglycerides Level 89 mg/dL (0-150) Cholesterol Level 96 mg/dL (0-200) LDL Cholesterol, Calculated 44 mg/dL (0-100) VLDL Cholesterol, Calculated 18 mg/dL (0-40) Non-HDL Cholesterol Calculated 62 mg/dL (0-129) HDL Cholesterol 34 mg/dL (40-60) Cholesterol/HDL Ratio 2.8 Physical Exam HEENT: Neck Supple W Full Motion Chest: Symmetric LUNGS: Clear to Auscultation Heart: irregularly irregular Abdomen: Soft N/T Extremities: No Edema Neurology: alert, oriented, follow commands Assessment Assessment 1. Traumatic fall with left intertrochanteric fracture; s/p surgical repair. POD #1. Tripped and fell- no other recent falls. 2. AFIB; rate controlled with metoprolol and Cardizem. [id number]. Eliquis resumed. 3. CAD s/p previous PCI/stent 2 years ago. CP free. Follows with [facility] 4. KELLEY, hyperkalemia; as per renal 5. Anemia, post-op 6. COPD; compensated 7. Hypertension; transferred to ICU overnight due to hypotension. BP remains marginal. Currently receiving fluid bolus. 8 Hyperlipidemia; statin 9. Diabetes, II. 10. H/o renal CA s/p left nephrectomy Recommendations Agree with IVFs Manohar for stroke prevention. Monitor H and H Secondary prevention measures May hold metoprolol/Cardizem with hypotension Use Dig IV PRN for tachycardia MARTIN YOUNG APRN Jan 11, 2019 10:59
--- NOTE | 2019-01-11 11:49 | NUR ---
Patient's blood pressure down to 57/33. Put patient in trendelenburg position and bolus with 500 cc bolus NS. Patient's color pale but denies dizziness/lightheadedness at this time. BP following bolus 81/49.
--- NOTE | 2019-01-11 11:55 | NUR ---
Dr. Hayward here to see patient. Blood pressure currently 81/49; map 58; HR 68. Informed doctor that the Metoprolol was not given this am d/t lower blood pressure. Orders changed.
--- NOTE | 2019-01-11 12:03 | PDOC ---
SUBJECTIVE ROS Denies any complaints , transferred to ICU due to Hypotension OBJECTIVE Vital Signs Vital Signs Date Time Temp Pulse Resp B/P (MAP) Pulse Ox O2 Delivery O2 Flow Rate FiO2 01/11/19 11:42 69 18 81/49 (60) 98 Nasal Cannula 2.0 01/11/19 07:00 97.9 97.9 I & 0 Intake and Output 01/11/19 07:00 Intake Total 5433 ml Output Total 1320 ml Balance 4113 ml Intake Oral 670 ml IV Total 4763 ml Output Urine Total 1020 ml Estimated Blood Loss 300 ml PHYSICAL EXAM Physical Exam General: nad HEENT: om moist Lungs: Clear to auscultation, Non labored Heart: S1S2 Abdomen: Normal bowel sounds, Soft, No tenderness, Extremities:No LE edema Skin: No rashes, Neuro: grossly normal - Case + DIAGNOSIS/ASSESSMENT Assessment & Plan Chronic kidney disease, stage 3, 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 Stable renal function, Baseline unknown , Follows with PCP and Urologist as OP Obtain OP records, Owen Rn , Supportive care , Monitor Hyperkalemia -- postoperative Resolved s/p left hip sx 01/09 Hypotensive- Continue IV boluses as indicated Meds adjusted, Not needing pressors currently A-Fib on eliquis, COPD stable Diabetes-Type II - Hypertension - Currently Hypotensive CAD s/p stents 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 COMMENT/RELEVANT DATA Meds Current Medications Medications (Trade) Dose Ordered Sig/Estefania Start Time Stop Time Status Last Admin Dose Admin Acetaminophen (Tylenol Supp) 650 mg PRN Q4HRS PRN 01/09/19 15:00 Acetaminophen/ Hydrocodone Bitart (Lortab 5/325) 1 tab PRN Q4HRS PRN 01/09/19 15:15 01/11/19 08:35 1 TAB Apixaban (Eliquis) 5 mg BID 01/11/19 09:00 01/11/19 08:34 5 MG Atorvastatin Calcium (Lipitor) 20 mg HS 01/09/19 21:00 01/10/19 20:21 20 MG Cefazolin Sodium/ Dextrose 50 ml @ 100 mls/hr Q8H 01/10/19 16:00 01/11/19 08:29 DC 01/11/19 08:40 100 MLS/HR Dexamethasone Sodium Phosphate (Decadron) 4 mg STK-MED ONCE 01/10/19 07:37 01/10/19 07:37 DC Dextrose (Dextrose 50%-Water Syringe) 12.5 gm PRN Q15MIN PRN 01/09/19 22:30 Diazepam (Valium) 2 mg Q6H PRN 01/11/19 09:30 01/11/19 09:57 2 MG Diltiazem HCl (Cardizem 24hr Cd) 240 mg DAILY 01/09/19 15:30 01/11/19 11:58 DC 01/11/19 08:34 240 MG Docusate Sodium (Colace) 100 mg PRN BID PRN 01/09/19 15:00 Fentanyl Citrate (Fentanyl 2ml Vial) 50 mcg PRN Q5MIN PRN 01/10/19 10:00 01/11/19 09:59 DC Hydromorphone HCl (Dilaudid) 0.5 mg PRN Q10MIN PRN 01/10/19 10:00 01/11/19 09:59 DC Info (Anti-Coagulation Monitoring By Pharmacy) 1 each PRN DAILY PRN 01/11/19 07:45 01/11/19 09:46 1 EACH Insulin Human Lispro (HumaLOG VIAL for OP,RR ONLY) 0-10 units PRN Q1HR PRN 01/10/19 09:45 01/11/19 09:14 DC 01/10/19 09:40 4 UNIT Insulin Human Lispro (HumaLOG) 0-5 UNITS TIDWMEALS 01/10/19 08:00 01/11/19 08:33 2 UNITS Lidocaine HCl (Xylocaine-Mpf 1% 2ml Vial) 2 ml PRN 1X PRN 01/10/19 10:00 01/11/19 09:59 DC Lidocaine HCl (Xylocaine-Mpf 1% 5ml Vial) 5 ml STK-MED ONCE 01/10/19 07:37 01/10/19 07:37 DC Metoprolol Succinate (Toprol Xl) 200 mg DAILY 01/10/19 09:00 01/11/19 11:58 DC 01/10/19 10:36 200 MG Metoprolol Tartrate (Lopressor) 25 mg BID 01/11/19 21:00 Morphine Sulfate (Morphine Sulfate) 1 mg PRN Q10MIN PRN 01/10/19 10:00 01/11/19 09:59 DC Morphine Sulfate 5 mg/Ketorolac Tromethamine 30 mg/Ropivacaine 60 ml/Epinephrine HCl 0.5 mg/Sodium Chloride 100 ml @ 100 mls/hr 1X ONCE 01/10/19 07:15 01/10/19 08:14 DC 01/10/19 08:28 Ondansetron HCl (Zofran) 4 mg PRN Q6HRS PRN 01/10/19 10:00 01/11/19 09:59 DC Orphenadrine Citrate (Norflex) 60 mg 1X ONCE 01/09/19 12:30 01/09/19 12:31 DC 01/09/19 12:46 60 MG Phenylephrine HCl (PHENYLEPHRINE in 0.9% NACL PF) 1 mg STK-MED ONCE 01/10/19 09:06 01/10/19 09:06 DC Prochlorperazine Edisylate (Compazine) 5 mg PACU PRN PRN 01/10/19 10:00 01/11/19 09:59 DC Propofol 20 ml @ As Directed STK-MED ONCE 01/10/19 07:37 01/10/19 07:37 DC Ringer's Solution 1,000 ml @ 30 mls/hr Q24H 01/10/19 09:46 01/10/19 21:45 DC Sevoflurane (Ultane) 60 ml STK-MED ONCE 01/10/19 09:06 01/10/19 09:07 DC Sodium Polystyrene Sulfonate (Kayexalate) 15 gm 1X ONCE 01/09/19 22:45 01/09/19 22:46 DC 01/10/19 00:28 15 GM Sodium Chloride 1,000 ml @ 100 mls/hr 1X ONCE 01/10/19 21:30 01/11/19 07:29 DC 01/10/19 21:37 100 MLS/HR Tamsulosin HCl (Flomax) 0.4 mg QHS 01/09/19 21:00 01/10/19 20:21 0.4 MG Tizanidine HCl (Zanaflex) 4 mg PRN Q8HRS PRN 01/09/19 15:15 01/11/19 08:35 4 MG Warfarin Sodium (Coumadin Per Pharmacy) 1 each PRN DAILY PRN 01/10/19 08:15 UNV Lab Laboratory Tests Test 01/10/19 16:49 01/10/19 18:48 01/10/19 19:00 01/10/19 19:15 Glucose (Fingerstick) 299 mg/dL (70-99) 293 mg/dL (70-99) 278 mg/dL (70-99) White Blood Count 13.1 x10^3/uL (4.0-11.0) Red Blood Count 2.98 x10^6/uL (4.30-5.70) Hemoglobin 9.7 g/dL (13.0-17.5) Hematocrit 29.8 % (39.0-53.0) Mean Corpuscular Volume 100 fL (79-100) Mean Corpuscular Hemoglobin 33 pg (25-35) Mean Corpuscular Hemoglobin Concent 33 g/dL (31-37) Red Cell Distribution Width 14.8 % (11.5-14.5) Platelet Count 144 x10^3/uL (140-400) Neutrophils (%) (Auto) 87 % (31-73) Lymphocytes (%) (Auto) 5 % (24-48) Monocytes (%) (Auto) 9 % (0-9) Eosinophils (%) (Auto) 0 % (0-3) Basophils (%) (Auto) 0 % (0-3) Neutrophils # (Auto) 11.4 x10^3/uL (1.8-7.7) Lymphocytes # (Auto) 0.6 x10^3/uL (1.0-4.8) Monocytes # (Auto) 1.1 x10^3/uL (0.0-1.1) Eosinophils # (Auto) 0.0 x10^3/uL (0.0-0.7) Basophils # (Auto) 0.0 x10^3/uL (0.0-0.2) Segmented Neutrophils % 85 % (35-66) Band Neutrophils % 8 % (0-9) Lymphocytes % 1 % (24-48) Monocytes % 6 % (0-10) Platelet Estimate Decreased (ADEQUATE) Test 01/10/19 20:41 01/10/19 21:45 01/11/19 04:30 Glucose (Fingerstick) 266 mg/dL (70-99) Urine Collection Type U cath Urine Color Mayra Urine Clarity Clear Urine pH 5.0 Urine Specific [place] >=1.030 Urine Protein Negative mg/dL (NEG-TRACE) Urine Glucose (UA) Negative mg/dL (NEG) Urine Ketones (Stick) Trace mg/dL (NEG) Urine Blood Moderate (NEG) Urine Nitrite Negative (NEG) Urine Bilirubin Small (NEG) Urine Urobilinogen Dipstick 0.2 mg/dL (0.2 mg/dL) Urine Leukocyte Esterase Negative (NEG) Urine RBC Tntc /HPF (0-2) Urine WBC 1-4 /HPF (0-4) Urine Squamous Epithelial Cells Few /LPF Urine Bacteria 0 /HPF (0-FEW) Urine Hyaline Casts Many /HPF Urine Mucus Mod /LPF White Blood Count 11.0 x10^3/uL (4.0-11.0) Red Blood Count 2.55 x10^6/uL (4.30-5.70) Hemoglobin 8.4 g/dL (13.0-17.5) Hematocrit 25.1 % (39.0-53.0) Mean Corpuscular Volume 98 fL (79-100) Mean Corpuscular Hemoglobin 33 pg (25-35) Mean Corpuscular Hemoglobin Concent 34 g/dL (31-37) Red Cell Distribution Width 14.8 % (11.5-14.5) Platelet Count 114 x10^3/uL (140-400) Neutrophils (%) (Auto) 86 % (31-73) Lymphocytes (%) (Auto) 5 % (24-48) Monocytes (%) (Auto) 9 % (0-9) Eosinophils (%) (Auto) 0 % (0-3) Basophils (%) (Auto) 0 % (0-3) Neutrophils # (Auto) 9.4 x10^3/uL (1.8-7.7) Lymphocytes # (Auto) 0.6 x10^3/uL (1.0-4.8) Monocytes # (Auto) 1.0 x10^3/uL (0.0-1.1) Eosinophils # (Auto) 0.0 x10^3/uL (0.0-0.7) Basophils # (Auto) 0.0 x10^3/uL (0.0-0.2) Prothrombin Time 17.0 SEC (11.7-14.0) Prothromb Time International Ratio 1.4 (0.8-1.1) Sodium Level 140 mmol/L (136-145) Potassium Level 4.7 mmol/L (3.5-5.1) Chloride Level 106 mmol/L (98-107) Carbon Dioxide Level 23 mmol/L (21-32) Anion Gap 11 (6-14) Blood Urea Nitrogen 32 mg/dL (8-26) Creatinine 1.7 mg/dL (0.7-1.3) Estimated GFR (Cockcroft-Gault) 39.4 Glucose Level 200 mg/dL (70-99) Calcium Level 7.8 mg/dL (8.5-10.1) Phosphorus Level 4.2 mg/dL (2.6-4.7) Albumin 2.6 g/dL (3.4-5.0) Triglycerides Level 89 mg/dL (0-150) Cholesterol Level 96 mg/dL (0-200) LDL Cholesterol, Calculated 44 mg/dL (0-100) VLDL Cholesterol, Calculated 18 mg/dL (0-40) Non-HDL Cholesterol Calculated 62 mg/dL (0-129) HDL Cholesterol 34 mg/dL (40-60) Cholesterol/HDL Ratio 2.8 Results All relevant outside records, renal labs, imaging studies, telemetry/EKG's were reviewed. HALLIE JOHNSON MD Jan 11, 2019 12:03
--- NOTE | 2019-01-11 13:36 | PDOC ---
PROGRESS NOTES Chief Complaint Chief Complaint A/P: s/p left hip sx 01/09 Hypotensive, hypovolemic post op - transferred icu 01/10 KELLEY, VMN HYperkalemia, corrected Dyslipidemia - cont statin A-Fib on eliquis, COPD stable Diabetes-Type II - Hypertension - CAD s/p stents - H/o left nephrectomy / renal ca - in remission Neuropathy - diabetic polyneuropathy, stable History of Present Illness History of Present Illness transferred to CIU overnight bec of hypotension 70s systolic Pt minimal sxs Some bleeding, oozing left hip site, - i mine GRANT. GERARDO ok OK to change dressing, as mine staff Pt on eliquis so oozing plus bruises HE is feeling alright SBP 90s - usual at home is 1-teens PLAn: KEep ICU for now and iVF Ramirez in - would keep for now, good UO Dressing change today - mine Lafleur tmr Pt OT\ SW SNU or rehab screen\ I cont eliquis for now - on it for a fib too, sees a cards as OP CArds was involved for pre op clearance Vitals Vitals Vital Signs Date Time Temp Pulse Resp B/P (MAP) Pulse Ox O2 Delivery O2 Flow Rate FiO2 01/11/19 11:42 69 18 81/49 (60) 98 Nasal Cannula 2.0 01/11/19 07:00 97.9 97.9 Physical Exam General: mild distress Heart: Other (irregularly irregular) Abdomen: Normal bowel sounds Extremities: No edema, Normal pulses Skin: No rashes, No breakdown, No significant lesion Labs LABS Laboratory Tests Test 01/10/19 16:49 01/10/19 18:48 01/10/19 19:00 01/10/19 19:15 Glucose (Fingerstick) 299 mg/dL (70-99) 293 mg/dL (70-99) 278 mg/dL (70-99) White Blood Count 13.1 x10^3/uL (4.0-11.0) Red Blood Count 2.98 x10^6/uL (4.30-5.70) Hemoglobin 9.7 g/dL (13.0-17.5) Hematocrit 29.8 % (39.0-53.0) Mean Corpuscular Volume 100 fL (79-100) Mean Corpuscular Hemoglobin 33 pg (25-35) Mean Corpuscular Hemoglobin Concent 33 g/dL (31-37) Red Cell Distribution Width 14.8 % (11.5-14.5) Platelet Count 144 x10^3/uL (140-400) Neutrophils (%) (Auto) 87 % (31-73) Lymphocytes (%) (Auto) 5 % (24-48) Monocytes (%) (Auto) 9 % (0-9) Eosinophils (%) (Auto) 0 % (0-3) Basophils (%) (Auto) 0 % (0-3) Neutrophils # (Auto) 11.4 x10^3/uL (1.8-7.7) Lymphocytes # (Auto) 0.6 x10^3/uL (1.0-4.8) Monocytes # (Auto) 1.1 x10^3/uL (0.0-1.1) Eosinophils # (Auto) 0.0 x10^3/uL (0.0-0.7) Basophils # (Auto) 0.0 x10^3/uL (0.0-0.2) Segmented Neutrophils % 85 % (35-66) Band Neutrophils % 8 % (0-9) Lymphocytes % 1 % (24-48) Monocytes % 6 % (0-10) Platelet Estimate Decreased (ADEQUATE) Test 01/10/19 20:41 01/10/19 21:45 01/11/19 04:30 01/11/19 12:45 Glucose (Fingerstick) 266 mg/dL (70-99) 152 mg/dL (70-99) Urine Collection Type U cath Urine Color Mayra Urine Clarity Clear Urine pH 5.0 Urine Specific [place] >=1.030 Urine Protein Negative mg/dL (NEG-TRACE) Urine Glucose (UA) Negative mg/dL (NEG) Urine Ketones (Stick) Trace mg/dL (NEG) Urine Blood Moderate (NEG) Urine Nitrite Negative (NEG) Urine Bilirubin Small (NEG) Urine Urobilinogen Dipstick 0.2 mg/dL (0.2 mg/dL) Urine Leukocyte Esterase Negative (NEG) Urine RBC Tntc /HPF (0-2) Urine WBC 1-4 /HPF (0-4) Urine Squamous Epithelial Cells Few /LPF Urine Bacteria 0 /HPF (0-FEW) Urine Hyaline Casts Many /HPF Urine Mucus Mod /LPF White Blood Count 11.0 x10^3/uL (4.0-11.0) Red Blood Count 2.55 x10^6/uL (4.30-5.70) Hemoglobin 8.4 g/dL (13.0-17.5) Hematocrit 25.1 % (39.0-53.0) Mean Corpuscular Volume 98 fL (79-100) Mean Corpuscular Hemoglobin 33 pg (25-35) Mean Corpuscular Hemoglobin Concent 34 g/dL (31-37) Red Cell Distribution Width 14.8 % (11.5-14.5) Platelet Count 114 x10^3/uL (140-400) Neutrophils (%) (Auto) 86 % (31-73) Lymphocytes (%) (Auto) 5 % (24-48) Monocytes (%) (Auto) 9 % (0-9) Eosinophils (%) (Auto) 0 % (0-3) Basophils (%) (Auto) 0 % (0-3) Neutrophils # (Auto) 9.4 x10^3/uL (1.8-7.7) Lymphocytes # (Auto) 0.6 x10^3/uL (1.0-4.8) Monocytes # (Auto) 1.0 x10^3/uL (0.0-1.1) Eosinophils # (Auto) 0.0 x10^3/uL (0.0-0.7) Basophils # (Auto) 0.0 x10^3/uL (0.0-0.2) Prothrombin Time 17.0 SEC (11.7-14.0) Prothromb Time International Ratio 1.4 (0.8-1.1) Sodium Level 140 mmol/L (136-145) Potassium Level 4.7 mmol/L (3.5-5.1) Chloride Level 106 mmol/L (98-107) Carbon Dioxide Level 23 mmol/L (21-32) Anion Gap 11 (6-14) Blood Urea Nitrogen 32 mg/dL (8-26) Creatinine 1.7 mg/dL (0.7-1.3) Estimated GFR (Cockcroft-Gault) 39.4 Glucose Level 200 mg/dL (70-99) Calcium Level 7.8 mg/dL (8.5-10.1) Phosphorus Level 4.2 mg/dL (2.6-4.7) Albumin 2.6 g/dL (3.4-5.0) Triglycerides Level 89 mg/dL (0-150) Cholesterol Level 96 mg/dL (0-200) LDL Cholesterol, Calculated 44 mg/dL (0-100) VLDL Cholesterol, Calculated 18 mg/dL (0-40) Non-HDL Cholesterol Calculated 62 mg/dL (0-129) HDL Cholesterol 34 mg/dL (40-60) Cholesterol/HDL Ratio 2.8 Review of Systems Review of Systems neg 14 pt systems Assessment and Plan Assessmemt and Plan Problems Medical Problems: (1) Chronic atrial fibrillation Status: Acute (2) Closed intertrochanteric fracture of femur Status: Acute (3) Fall at home Status: Acute (4) Hyperkalemia Status: Acute (5) Renal insufficiency Status: Acute Comment Review of Relevant I have reviewed the following items oleg (where applicable) has been applied. Labs Laboratory Tests Test 01/09/19 16:45 01/09/19 20:48 01/10/19 03:00 01/10/19 09:28 Nasal Screen MRSA (PCR) Negative (Negative) Glucose (Fingerstick) 180 mg/dL (70-99) 195 mg/dL (70-99) Prothrombin Time 16.8 SEC (11.7-14.0) Prothromb Time International Ratio 1.4 (0.8-1.1) Sodium Level 140 mmol/L (136-145) Potassium Level 5.4 mmol/L (3.5-5.1) Chloride Level 104 mmol/L (98-107) Carbon Dioxide Level 22 mmol/L (21-32) Anion Gap 14 (6-14) Blood Urea Nitrogen 26 mg/dL (8-26) Creatinine 1.6 mg/dL (0.7-1.3) Estimated GFR (Cockcroft-Gault) 42.2 Glucose Level 152 mg/dL (70-99) Calcium Level 9.1 mg/dL (8.5-10.1) Phosphorus Level 3.8 mg/dL (2.6-4.7) Albumin 3.3 g/dL (3.4-5.0) Test 01/10/19 11:54 01/10/19 16:49 01/10/19 18:48 01/10/19 19:00 Glucose (Fingerstick) 190 mg/dL (70-99) 299 mg/dL (70-99) 293 mg/dL (70-99) 278 mg/dL (70-99) Test 01/10/19 19:15 01/10/19 20:41 01/10/19 21:45 01/11/19 04:30 White Blood Count 13.1 x10^3/uL (4.0-11.0) 11.0 x10^3/uL (4.0-11.0) Red Blood Count 2.98 x10^6/uL (4.30-5.70) 2.55 x10^6/uL (4.30-5.70) Hemoglobin 9.7 g/dL (13.0-17.5) 8.4 g/dL (13.0-17.5) Hematocrit 29.8 % (39.0-53.0) 25.1 % (39.0-53.0) Mean Corpuscular Volume 100 fL (79-100) 98 fL (79-100) Mean Corpuscular Hemoglobin 33 pg (25-35) 33 pg (25-35) Mean Corpuscular Hemoglobin Concent 33 g/dL (31-37) 34 g/dL (31-37) Red Cell Distribution Width 14.8 % (11.5-14.5) 14.8 % (11.5-14.5) Platelet Count 144 x10^3/uL (140-400) 114 x10^3/uL (140-400) Neutrophils (%) (Auto) 87 % (31-73) 86 % (31-73) Lymphocytes (%) (Auto) 5 % (24-48) 5 % (24-48) Monocytes (%) (Auto) 9 % (0-9) 9 % (0-9) Eosinophils (%) (Auto) 0 % (0-3) 0 % (0-3) Basophils (%) (Auto) 0 % (0-3) 0 % (0-3) Neutrophils # (Auto) 11.4 x10^3/uL (1.8-7.7) 9.4 x10^3/uL (1.8-7.7) Lymphocytes # (Auto) 0.6 x10^3/uL (1.0-4.8) 0.6 x10^3/uL (1.0-4.8) Monocytes # (Auto) 1.1 x10^3/uL (0.0-1.1) 1.0 x10^3/uL (0.0-1.1) Eosinophils # (Auto) 0.0 x10^3/uL (0.0-0.7) 0.0 x10^3/uL (0.0-0.7) Basophils # (Auto) 0.0 x10^3/uL (0.0-0.2) 0.0 x10^3/uL (0.0-0.2) Segmented Neutrophils % 85 % (35-66) Band Neutrophils % 8 % (0-9) Lymphocytes % 1 % (24-48) Monocytes % 6 % (0-10) Platelet Estimate Decreased (ADEQUATE) Glucose (Fingerstick) 266 mg/dL (70-99) Urine Collection Type U cath Urine Color Mayra Urine Clarity Clear Urine pH 5.0 Urine Specific [place] >=1.030 Urine Protein Negative mg/dL (NEG-TRACE) Urine Glucose (UA) Negative mg/dL (NEG) Urine Ketones (Stick) Trace mg/dL (NEG) Urine Blood Moderate (NEG) Urine Nitrite Negative (NEG) Urine Bilirubin Small (NEG) Urine Urobilinogen Dipstick 0.2 mg/dL (0.2 mg/dL) Urine Leukocyte Esterase Negative (NEG) Urine RBC Tntc /HPF (0-2) Urine WBC 1-4 /HPF (0-4) Urine Squamous Epithelial Cells Few /LPF Urine Bacteria 0 /HPF (0-FEW) Urine Hyaline Casts Many /HPF Urine Mucus Mod /LPF Prothrombin Time 17.0 SEC (11.7-14.0) Prothromb Time International Ratio 1.4 (0.8-1.1) Sodium Level 140 mmol/L (136-145) Potassium Level 4.7 mmol/L (3.5-5.1) Chloride Level 106 mmol/L (98-107) Carbon Dioxide Level 23 mmol/L (21-32) Anion Gap 11 (6-14) Blood Urea Nitrogen 32 mg/dL (8-26) Creatinine 1.7 mg/dL (0.7-1.3) Estimated GFR (Cockcroft-Gault) 39.4 Glucose Level 200 mg/dL (70-99) Calcium Level 7.8 mg/dL (8.5-10.1) Phosphorus Level 4.2 mg/dL (2.6-4.7) Albumin 2.6 g/dL (3.4-5.0) Triglycerides Level 89 mg/dL (0-150) Cholesterol Level 96 mg/dL (0-200) LDL Cholesterol, Calculated 44 mg/dL (0-100) VLDL Cholesterol, Calculated 18 mg/dL (0-40) Non-HDL Cholesterol Calculated 62 mg/dL (0-129) HDL Cholesterol 34 mg/dL (40-60) Cholesterol/HDL Ratio 2.8 Test 01/11/19 12:45 Glucose (Fingerstick) 152 mg/dL (70-99) Laboratory Tests Test 01/10/19 16:49 01/10/19 18:48 01/10/19 19:00 01/10/19 19:15 Glucose (Fingerstick) 299 mg/dL (70-99) 293 mg/dL (70-99) 278 mg/dL (70-99) White Blood Count 13.1 x10^3/uL (4.0-11.0) Red Blood Count 2.98 x10^6/uL (4.30-5.70) Hemoglobin 9.7 g/dL (13.0-17.5) Hematocrit 29.8 % (39.0-53.0) Mean Corpuscular Volume 100 fL (79-100) Mean Corpuscular Hemoglobin 33 pg (25-35) Mean Corpuscular Hemoglobin Concent 33 g/dL (31-37) Red Cell Distribution Width 14.8 % (11.5-14.5) Platelet Count 144 x10^3/uL (140-400) Neutrophils (%) (Auto) 87 % (31-73) Lymphocytes (%) (Auto) 5 % (24-48) Monocytes (%) (Auto) 9 % (0-9) Eosinophils (%) (Auto) 0 % (0-3) Basophils (%) (Auto) 0 % (0-3) Neutrophils # (Auto) 11.4 x10^3/uL (1.8-7.7) Lymphocytes # (Auto) 0.6 x10^3/uL (1.0-4.8) Monocytes # (Auto) 1.1 x10^3/uL (0.0-1.1) Eosinophils # (Auto) 0.0 x10^3/uL (0.0-0.7) Basophils # (Auto) 0.0 x10^3/uL (0.0-0.2) Segmented Neutrophils % 85 % (35-66) Band Neutrophils % 8 % (0-9) Lymphocytes % 1 % (24-48) Monocytes % 6 % (0-10) Platelet Estimate Decreased (ADEQUATE) Test 01/10/19 20:41 01/10/19 21:45 01/11/19 04:30 01/11/19 12:45 Glucose (Fingerstick) 266 mg/dL (70-99) 152 mg/dL (70-99) Urine Collection Type U cath Urine Color Mayra Urine Clarity Clear Urine pH 5.0 Urine Specific [place] >=1.030 Urine Protein Negative mg/dL (NEG-TRACE) Urine Glucose (UA) Negative mg/dL (NEG) Urine Ketones (Stick) Trace mg/dL (NEG) Urine Blood Moderate (NEG) Urine Nitrite Negative (NEG) Urine Bilirubin Small (NEG) Urine Urobilinogen Dipstick 0.2 mg/dL (0.2 mg/dL) Urine Leukocyte Esterase Negative (NEG) Urine RBC Tntc /HPF (0-2) Urine WBC 1-4 /HPF (0-4) Urine Squamous Epithelial Cells Few /LPF Urine Bacteria 0 /HPF (0-FEW) Urine Hyaline Casts Many /HPF Urine Mucus Mod /LPF White Blood Count 11.0 x10^3/uL (4.0-11.0) Red Blood Count 2.55 x10^6/uL (4.30-5.70) Hemoglobin 8.4 g/dL (13.0-17.5) Hematocrit 25.1 % (39.0-53.0) Mean Corpuscular Volume 98 fL (79-100) Mean Corpuscular Hemoglobin 33 pg (25-35) Mean Corpuscular Hemoglobin Concent 34 g/dL (31-37) Red Cell Distribution Width 14.8 % (11.5-14.5) Platelet Count 114 x10^3/uL (140-400) Neutrophils (%) (Auto) 86 % (31-73) Lymphocytes (%) (Auto) 5 % (24-48) Monocytes (%) (Auto) 9 % (0-9) Eosinophils (%) (Auto) 0 % (0-3) Basophils (%) (Auto) 0 % (0-3) Neutrophils # (Auto) 9.4 x10^3/uL (1.8-7.7) Lymphocytes # (Auto) 0.6 x10^3/uL (1.0-4.8) Monocytes # (Auto) 1.0 x10^3/uL (0.0-1.1) Eosinophils # (Auto) 0.0 x10^3/uL (0.0-0.7) Basophils # (Auto) 0.0 x10^3/uL (0.0-0.2) Prothrombin Time 17.0 SEC (11.7-14.0) Prothromb Time International Ratio 1.4 (0.8-1.1) Sodium Level 140 mmol/L (136-145) Potassium Level 4.7 mmol/L (3.5-5.1) Chloride Level 106 mmol/L (98-107) Carbon Dioxide Level 23 mmol/L (21-32) Anion Gap 11 (6-14) Blood Urea Nitrogen 32 mg/dL (8-26) Creatinine 1.7 mg/dL (0.7-1.3) Estimated GFR (Cockcroft-Gault) 39.4 Glucose Level 200 mg/dL (70-99) Calcium Level 7.8 mg/dL (8.5-10.1) Phosphorus Level 4.2 mg/dL (2.6-4.7) Albumin 2.6 g/dL (3.4-5.0) Triglycerides Level 89 mg/dL (0-150) Cholesterol Level 96 mg/dL (0-200) LDL Cholesterol, Calculated 44 mg/dL (0-100) VLDL Cholesterol, Calculated 18 mg/dL (0-40) Non-HDL Cholesterol Calculated 62 mg/dL (0-129) HDL Cholesterol 34 mg/dL (40-60) Cholesterol/HDL Ratio 2.8 Medications Current Medications Fentanyl Citrate (Fentanyl 2ml Vial) 50 mcg 1X ONCE IVP Last administered on 01/09/19at 12:46; Start 01/09/19 at 12:30; Stop 01/09/19 at 12:31; Status DC Orphenadrine Citrate (Norflex) 60 mg 1X ONCE IV Last administered on 9at 12:46; Start 01/09/19 at 12:30; Stop 01/09/19 at 12:31; Status DC Fentanyl Citrate (Fentanyl 2ml Vial) 50 mcg 1X ONCE IVP Last administered on 01/09/19at 13:37; Start 01/09/19 at 13:30; Stop 01/09/19 at 13:31; Status DC Fentanyl Citrate (Fentanyl 2ml Vial) 50 mcg PRN Q2HR PRN IV PAIN Last administered on 01/10/19at 04:36; Start 01/09/19 at 14:30; Stop 01/10/19 at 04:37; Status DC Ondansetron HCl (Zofran) 4 mg PRN Q4HRS PRN IV NAUSEA/VOMITING; Start 01/09/19 at 15:00 Acetaminophen (Tylenol Supp) 650 mg PRN Q4HRS PRN MD TEMP OVER 100.4F OR MILD PAIN; Start 01/09/19 at 15:00 Docusate Sodium (Colace) 100 mg PRN BID PRN PO CONSTIPATION; Start 01/09/19 at 15:00 Atorvastatin Calcium (Lipitor) 20 mg HS PO Last administered on 01/10/19at 20:21; Start 01/09/19 at 21:00 Diltiazem HCl (Cardizem 24hr Cd) 240 mg DAILY PO Last administered on 01/11/19at 08:34; Start 01/09/19 at 15:30; Stop 01/11/19 at 11:58; Status DC Tamsulosin HCl (Flomax) 0.4 mg DAILY PO ; Start 01/09/19 at 15:30; Stop 01/09 at 16:31; Status DC Tizanidine HCl (Zanaflex) 4 mg PRN Q8HRS PRN PO MUSCLE SPASMS Last administered on 01/11/19at 08:35; Start 01/09/19 at 15:15 Acetaminophen/ Hydrocodone Bitart (Lortab 5/325) 1 tab PRN Q4HRS PRN PO PAIN Last administered on 01/11/19at 08:35; Start 01/09/19 at 15:15 Morphine Sulfate (Morphine Sulfate) 4 mg PRN Q2HR PRN IV PAIN Last administered on 01/11/19at 04:05; Start 01/09/19 at 15:15 Tamsulosin HCl (Flomax) 0.4 mg QHS PO Last administered on 01/10/19at 20:21; Start 01/09/19 at 21:00 Dextrose (Dextrose 50%-Water Syringe) 12.5 gm PRN Q15MIN PRN IV SEE COMMENTS; Start 01/09/19 at 17:00; Stop 01/10/19 at 14:01; Status DC Cefazolin Sodium/ Dextrose 50 ml @ 100 mls/hr 1X ONCE IV ; Start 01/09/19 at 18:30; Stop 01/09/19 at 18:59; Status Cancel Cefazolin Sodium/ Dextrose 50 ml @ 100 mls/hr 1X ONCE IV Last administered on 01/10/19at 07:57; Start 01/10/19 at 08:00; Stop 01/10/19 at 08:29; Status DC Sodium Chloride 1,000 ml @ 75 mls/hr [id number] IV Last administered on 01/11/19at 00:10; Start 01/09/19 at 22:30 Insulin Human Lispro (HumaLOG) 0-5 UNITS TIDWMEALS SQ Last administered on 01/11/19at 12:55; Start 01/10/19 at 08:00 Dextrose (Dextrose 50%-Water Syringe) 12.5 gm PRN Q15MIN PRN IV SEE COMMENTS; Start 01/09/19 at 22:30 Metoprolol Succinate (Toprol Xl) 200 mg DAILY PO Last administered on 01/10/19at 10:36; Start 01/10/19 at 09:00; Stop 01/11/19 at 11:58; Status DC Sodium Polystyrene Sulfonate (Kayexalate) 15 gm 1X ONCE PO Last administered on 01/10/19at 00:28; Start 01/09/19 at 22:45; Stop 01/09/19 at 22:46; Status DC Morphine Sulfate 5 mg/Ketorolac Tromethamine 30 mg/Ropivacaine 60 ml/Epinephrine HCl 0.5 mg/Sodium Chloride 100 ml @ 100 mls/hr 1X ONCE INT ART Last administered on 01/10/19at 08:28; Start 01/10/19 at 07:15; Stop 01/10/19 at 08:14; Status DC Propofol 20 ml @ As Directed STK-MED ONCE IV ; Start 01/10/19 at 07:37; Stop 01/10/19 at 07:37; Status DC Lidocaine HCl (Xylocaine-Mpf 1% 5ml Vial) 5 ml STK-MED ONCE .ROUTE ; Start 01/10/19 at 07:37; Stop 01/10/19 at 07:37; Status DC Dexamethasone Sodium Phosphate (Decadron) 4 mg STK-MED ONCE .ROUTE ; Start 01/10/19 at 07:37; Stop 01/10/19 at 07:37; Status DC Ondansetron HCl (Zofran) 4 mg STK-MED ONCE .ROUTE ; Start 01/10/19 at 07:37; Stop 01/10/19 at 07:37; Status DC Fentanyl Citrate (Fentanyl 2ml Vial) 100 mcg STK-MED ONCE .ROUTE ; Start 01/10/19 at 07:37; Stop 01/10/19 at 07:38; Status DC Warfarin Sodium (Coumadin Per Pharmacy) 1 each PRN DAILY PRN MC SEE COMMENTS; Start 01/10/19 at 08:15; Status UNV Cefazolin Sodium/ Dextrose 50 ml @ 100 mls/hr Q8H IV Last administered on 01/11/19at 08:40; Start 01/10/19 at 16:00; Stop 01/11/19 at 08:29; Status DC Phenylephrine HCl (PHENYLEPHRINE in 0.9% NACL PF) 1 mg STK-MED ONCE IV ; Start 01/10/19 at 09:06; Stop 01/10/19 at 09:06; Status DC Phenylephrine HCl (PHENYLEPHRINE in 0.9% NACL PF) 1 mg STK-MED ONCE IV ; Start 01/10/19 at 09:06; Stop 01/10/19 at 09:06; Status DC Sevoflurane (Ultane) 60 ml STK-MED ONCE IH ; Start 01/10/19 at 09:06; Stop 01/10/19 at 09:07; Status DC Insulin Human Lispro (HumaLOG VIAL for OP,RR ONLY) 0-10 units PRN Q1HR PRN SQ PER PROTOCOL Last administered on 01/10/19at 09:40; Start 01/10/19 at 09:45; Stop 01/11/19 at 09:14; Status DC Ondansetron HCl (Zofran) 4 mg PRN Q6HRS PRN IV NAUSEA/VOMITING; Start 01/10/19 at 10:00; Stop 01/11/19 at 09:59; Status DC Fentanyl Citrate (Fentanyl 2ml Vial) 25 mcg PRN Q5MIN PRN IV MILD PAIN 1-3; Start 01/10/19 at 10:00; Stop 01/11/19 at 09:59; Status DC Fentanyl Citrate (Fentanyl 2ml Vial) 50 mcg PRN Q5MIN PRN IV MODERATE TO SEVERE PAIN; Start 01/10/19 at 10:00; Stop 01/11/19 at 09:59; Status DC Morphine Sulfate (Morphine Sulfate) 1 mg PRN Q10MIN PRN IV SEVERE PAIN 7-10; Start 01/10/19 at 10:00; Stop 01/11/19 at 09:59; Status DC Ringer's Solution 1,000 ml @ 30 mls/hr Q24H IV ; Start 01/10/19 at 09:46; Stop 01/10/19 at 21:45; Status DC Lidocaine HCl (Xylocaine-Mpf 1% 2ml Vial) 2 ml PRN 1X PRN ID PRIOR TO IV START; Start 01/10/19 at 10:00; Stop 01/11/19 at 09:59; Status DC Hydromorphone HCl (Dilaudid) 0.5 mg PRN Q10MIN PRN IV SEV PAIN, Second choice; Start 01/10/19 at 10:00; Stop 01/11/19 at 09:59; Status DC Prochlorperazine Edisylate (Compazine) 5 mg PACU PRN PRN IV NAUSEA, MRX1; Start 01/10/19 at 10:00; Stop 01/11/19 at 09:59; Status DC Apixaban (Eliquis) 5 mg BID PO Last administered on 01/11/19at 08:34; Start 01/11/19 at 09:00 Sodium Chloride 500 ml @ 250 mls/hr 1X ONCE IV Last administered on 01/10/19at 19:10; Start 01/10/19 at 19:10; Stop 01/10/19 at 21:09; Status DC Sodium Chloride 1,000 ml @ 100 mls/hr 1X ONCE IV Last administered on 01/10/19at 21:37; Start 01/10/19 at 21:30; Stop 01/11/19 at 07:29; Status DC Info (Anti-Coagulation Monitoring By Pharmacy) 1 each PRN DAILY PRN MC SEE COMMENTS Last administered on 01/11/19at 09:46; Start 01/11/19 at 07:45 Diazepam (Valium) 2 mg Q6H PRN PO muscle spasm Last administered on 01/11/19at 09:57; Start 01/11/19 at 09:30 Metoprolol Tartrate (Lopressor) 25 mg BID PO ; Start 01/11/19 at 21:00 Active Scripts Active Reported Vitamin C (Ascorbic Acid) 1,000 Mg Tablet 1,000 Mg PO DAILY Fish Oil 1,400 Mg Softgel ([place]-3/Dha/Epa/Fish Oil) 1 Each Capsule.dr 1 Each PO DAILY Centrum Silver Men Tablet (Multivit-Min/FA/Lycopen/Lutein) 1 Each Tablet 1 Each PO DAILY Cinnamon (Cinnamon Bark) 500 Mg Capsule 1,000 Mg PO BID Chromium Picolinate 400 Mcg Tablet 400 Mcg PO DAILY Tamsulosin Hcl 0.4 Mg Cap.er.24h 0.4 Mg PO DAILY Nabumetone 500 Mg Tablet 1 Tab PO BID Metformin Hcl 500 Mg Tablet 1,000 Mg PO BIDWMEALS Metoprolol Succinate ( Xl ) (Metoprolol Succinate) 200 Mg Tab.er.24h 200 Mg PO DAILY Cozaar (Losartan Potassium) 25 Mg Tablet 25 Mg PO DAILY Januvia (Sitagliptin Phosphate) 100 Mg Tablet 100 Mg PO HS Glimepiride 2 Mg Tablet 2 Mg PO BID Furosemide 40 Mg Tablet 40 Mg PO DAILY PRN Eliquis (Apixaban) 5 Mg Tablet 5 Mg PO BID Cartia Xt (Diltiazem Hcl) 240 Mg Cap.er.24h 240 Mg PO DAILY Atorvastatin Calcium 20 Mg Tablet 20 Mg PO HS Aspirin 81 Mg Tab.chew 1 Tab PO DAILY Vitals/I & O Vital Sign - Last 24 Hours 01/10/19 01/10/19 01/10/19 01/10/19 14:00 15:51 17:15 18:55 Pulse 86 75 Resp 17 16 B/P (MAP) 111/58 (75) 72/40 (51) Pulse Ox 98 O2 Delivery Nasal Cannula Room Air Room Air Nasal Cannula O2 Flow Rate 2.5 2.0 01/10/19 01/10/19 01/10/19 01/10/19 19:20 20:00 20:00 23:00 Temp 97.4 98.3 97.4 98.3 Pulse 72 86 Resp 18 16 B/P (MAP) 73/38 (50) 133/91 (105) 155/81 (105) Pulse Ox 98 98 O2 Delivery Nasal Cannula Nasal Cannula Nasal Cannula O2 Flow Rate 2.0 2.0 2.0 01/10/19 01/10/19 01/10/19 01/10/19 23:15 23:20 23:30 23:55 Pulse 84 82 Resp 14 15 18 16 B/P (MAP) 146/64 (91) 122/66 (84) Pulse Ox 97 98 96 O2 Delivery Nasal Cannula Nasal Cannula Nasal Cannula Nasal Cannula O2 Flow Rate 2.0 2.0 2.0 2.0 01/11/19 01/11/19 01/11/19 01/11/19 00:00 00:00 01:00 02:00 Pulse 80 72 67 Resp 15 16 14 B/P (MAP) 119/73 (88) 107/60 (76) 94/57 (69) Pulse Ox 96 94 92 O2 Delivery Nasal Cannula Nasal Cannula Nasal Cannula Nasal Cannula O2 Flow Rate 2.0 2.0 2.0 2.0 01/11/19 01/11/19 01/11/19 01/11/19 03:00 04:00 04:05 04:40 Temp 97.7 97.7 Pulse 78 73 Resp 16 20 20 18 B/P (MAP) 97/49 (65) 115/57 (76) Pulse Ox 92 98 97 96 O2 Delivery Nasal Cannula Nasal Cannula Nasal Cannula Nasal Cannula O2 Flow Rate 2.0 2.0 2.0 2.0 01/11/19 01/11/19 01/11/19 01/11/19 05:00 06:00 07:00 08:00 Temp 97.9 97.9 Pulse 78 86 91 Resp 16 18 18 B/P (MAP) 101/55 (70) 101/53 (69) 96/62 (73) Pulse Ox 97 97 88 O2 Delivery Nasal Cannula Nasal Cannula Room Air Nasal Cannula O2 Flow Rate 2.0 2.0 2.0 01/11/19 01/11/19 01/11/19 01/11/19 08:00 08:34 08:35 09:00 Pulse 102 88 102 Resp 18 18 18 B/P (MAP) 116/63 (80) 120/58 120/58 (78) Pulse Ox 96 98 O2 Delivery Nasal Cannula Nasal Cannula Nasal Cannula O2 Flow Rate 2.0 2.0 2.0 01/11/19 01/11/19 01/11/19 01/11/19 10:00 11:10 11:16 11:28 Pulse 89 89 75 75 Resp 18 18 18 18 B/P (MAP) 100/52 (68) 57/33 (41) 54/45 (48) 74/43 (53) Pulse Ox 98 98 98 98 O2 Delivery Nasal Cannula Nasal Cannula Nasal Cannula Nasal Cannula O2 Flow Rate 2.0 2.0 2.0 2.0 01/11/19 11:42 Pulse 69 Resp 18 B/P (MAP) 81/49 (60) Pulse Ox 98 O2 Delivery Nasal Cannula O2 Flow Rate 2.0 Intake and Output 01/10/19 01/10/19 01/11/19 15:00 23:00 07:00 Intake Total 1260 ml 3300 ml 873 ml Output Total 625 ml 200 ml 495 ml Balance 635 ml 3100 ml 378 ml JUANITO RAMÍREZ MD Jan 11, 2019 13:36
[2019-01-11 15:12] LABS: HEMATOCRIT 23.1 % (39.0-53.0); HEMOGLOBIN 7.6 g/dL (13.0-17.5); RED BLOOD COUNT 2.31 x10^6/uL (4.30-5.70); RED CELL DISTRIBUTION WIDTH 15.3 % (11.5-14.5); WHITE BLOOD COUNT 10.1 x10^3/uL (4.0-11.0)
--- NOTE | 2019-01-11 15:45 | NUR ---
Dr. Jaimes notified of b 8.4 @ 8504 and Hgb 7.6 @ 6756. Lewis in a.Sandhya
--- NOTE | 2019-01-11 16:22 | NUR ---
SS following for discharge planning. SS reviewed pt chart. Pt is from home with spouse and is currently requiring oxygen. PT/OT recommended acute rehabilitation facility. SS will visit with pt in the morning to discuss discharge planning and acute rehabilitation referral.
[2019-01-11] MEDS: ATORVASTATIN CALCIUM 20 MG TABLET PO SCH (20:33)
[2019-01-11] MEDS: TAMSULOSIN 0.4 MG CAP.ER.24H. PO SCH (20:33)
[2019-01-11] MEDS: METOPROLOL TART IMMED RELEASE 25 MG TABLET. PO SCH (20:33)
[2019-01-12] VITALS (16 sets, daily range): BP systolic 82–172; BP diastolic 47–80
[2019-01-12] MEDS: diazePAM 2 MG TABLET PO PRN ×2 (03:15→08:57)
[2019-01-12 03:54] LABS: ALBUMIN 2.4 g/dL (3.4-5.0); CALCIUM 7.7 mg/dL (8.5-10.1); CREATININE 1.5 mg/dL (0.7-1.3); GFR 45.5; PHOSPHORUS 3.2 mg/dL (2.6-4.7); POTASSIUM 4.2 mmol/L (3.5-5.1)
[2019-01-12] MEDS: IV NORMAL SALINE 1000ML BAG 1,000 ML IV SCH (05:06)
[2019-01-12] MEDS: HYDROcodone/APAP 5/325MG 1 TAB TABLET PO PRN ×3 (06:10→19:12)
[2019-01-12] MEDS: METOPROLOL TART IMMED RELEASE 25 MG TABLET. PO SCH ×2 (08:57→21:24)
[2019-01-12] MEDS: tiZANidine 4 MG TABLET. PO PRN ×2 (08:57→19:12)
[2019-01-12] MEDS: APIXABAN 5 MG TABLET. PO SCH ×2 (08:58→21:24)
[2019-01-12] MEDS: DOCUSATE SODIUM 100 MG CAPSULE. PO PRN (08:58)
[2019-01-12 09:00] LABS: HEMATOCRIT 23.3 % (39.0-53.0); HEMOGLOBIN 7.7 g/dL (13.0-17.5)
[2019-01-12] MEDS: INSULIN LISPRO 300 UNITS/3 ML VIAL. SQ SCH ×3 (09:01→16:41)
--- NOTE | 2019-01-12 09:12 | PDOC ---
SUBJECTIVE ROS BP improved, stable, good uop OBJECTIVE Vital Signs Vital Signs Date Time Temp Pulse Resp B/P (MAP) Pulse Ox O2 Delivery O2 Flow Rate FiO2 01/12/19 08:57 119 130/51 01/12/19 07:10 20 Room Air 96.0 01/12/19 06:10 97 01/12/19 04:00 98.3 98.3 I & 0 Intake and Output 01/12/19 07:00 Intake Total 2834.25 ml Output Total 1180 ml Balance 1654.25 ml Intake Oral 1435 ml IV Total 1399.25 ml Output Urine Total 1180 ml PHYSICAL EXAM Physical Exam General: nad HEENT: om moist Lungs: Clear to auscultation, Non labored Heart: S1S2 Abdomen: Normal bowel sounds, Soft, No tenderness, Extremities:No LE edema Skin: No rashes, Neuro: grossly normal - Case + DIAGNOSIS/ASSESSMENT Assessment & Plan Chronic kidney disease, stage 3, secondary to single Kidney -left radical nephrectomy Stable renal function, Baseline unknown , Follows with PCP and Urologist as OP UA unremarkable Obtain OP records, Owen Rn , Supportive care , Monitor Anemia- Per Primary Hyperkalemia -- postoperative Resolved s/p left hip sx 01/09 Hypotensive- Resolved A-Fib on eliquis, COPD stable Diabetes-Type II - CAD s/p stents H/o left nephrectomy 2/ renal ca - in remission COMMENT/RELEVANT DATA Meds Current Medications Medications (Trade) Dose Ordered Sig/Estefania Start Time Stop Time Status Last Admin Dose Admin Acetaminophen (Tylenol Supp) 650 mg PRN Q4HRS PRN 01/09/19 15:00 Acetaminophen/ Hydrocodone Bitart (Lortab 5/325) 1 tab PRN Q4HRS PRN 01/09/19 15:15 01/12/19 06:10 1 TAB Apixaban (Eliquis) 5 mg BID 01/11/19 09:00 01/12/19 08:58 5 MG Atorvastatin Calcium (Lipitor) 20 mg HS 01/09/19 21:00 01/11/19 20:33 20 MG Cefazolin Sodium/ Dextrose 50 ml @ 100 mls/hr Q8H 01/10/19 16:00 01/11/19 08:29 DC 01/11/19 08:40 100 MLS/HR Dexamethasone Sodium Phosphate (Decadron) 4 mg STK-MED ONCE 01/10/19 07:37 01/10/19 07:37 DC Dextrose (Dextrose 50%-Water Syringe) 12.5 gm PRN Q15MIN PRN 01/09/19 22:30 Diazepam (Valium) 2 mg Q6H PRN 01/11/19 09:30 01/12/19 08:57 2 MG Diltiazem HCl (Cardizem 24hr Cd) 240 mg DAILY 01/09/19 15:30 01/11/19 11:58 DC 01/11/19 08:34 240 MG Docusate Sodium (Colace) 100 mg PRN BID PRN 01/09/19 15:00 01/12/19 08:58 100 MG Fentanyl Citrate (Fentanyl 2ml Vial) 50 mcg PRN Q5MIN PRN 01/10/19 10:00 01/11/19 09:59 DC Hydromorphone HCl (Dilaudid) 0.5 mg PRN Q10MIN PRN 01/10/19 10:00 01/11/19 09:59 DC Info (Anti-Coagulation Monitoring By Pharmacy) 1 each PRN DAILY PRN 01/11/19 07:45 01/11/19 09:46 1 EACH Insulin Human Lispro (HumaLOG VIAL for OP,RR ONLY) 0-10 units PRN Q1HR PRN 01/10/19 09:45 01/11/19 09:14 DC 01/10/19 09:40 4 UNIT Insulin Human Lispro (HumaLOG) 0-5 UNITS TIDWMEALS 01/10/19 08:00 01/12/19 09:01 2 UNITS Lidocaine HCl (Xylocaine-Mpf 1% 2ml Vial) 2 ml PRN 1X PRN 01/10/19 10:00 01/11/19 09:59 DC Lidocaine HCl (Xylocaine-Mpf 1% 5ml Vial) 5 ml STK-MED ONCE 01/10/19 07:37 01/10/19 07:37 DC Metoprolol Succinate (Toprol Xl) 200 mg DAILY 01/10/19 09:00 01/11/19 11:58 DC 01/10/19 10:36 200 MG Metoprolol Tartrate (Lopressor) 25 mg BID 01/11/19 21:00 01/12/19 08:57 25 MG Morphine Sulfate (Morphine Sulfate) 1 mg PRN Q10MIN PRN 01/10/19 10:00 01/11/19 09:59 DC Morphine Sulfate 5 mg/Ketorolac Tromethamine 30 mg/Ropivacaine 60 ml/Epinephrine HCl 0.5 mg/Sodium Chloride 100 ml @ 100 mls/hr 1X ONCE 01/10/19 07:15 01/10/19 08:14 DC 01/10/19 08:28 Ondansetron HCl (Zofran) 4 mg PRN Q6HRS PRN 01/10/19 10:00 01/11/19 09:59 DC Orphenadrine Citrate (Norflex) 60 mg 1X ONCE 01/09/19 12:30 01/09/19 12:31 DC 01/09/19 12:46 60 MG Phenylephrine HCl (PHENYLEPHRINE in 0.9% NACL PF) 1 mg STK-MED ONCE 01/10/19 09:06 01/10/19 09:06 DC Prochlorperazine Edisylate (Compazine) 5 mg PACU PRN PRN 01/10/19 10:00 01/11/19 09:59 DC Propofol 20 ml @ As Directed STK-MED ONCE 01/10/19 07:37 01/10/19 07:37 DC Ringer's Solution 1,000 ml @ 30 mls/hr Q24H 01/10/19 09:46 01/10/19 21:45 DC Sevoflurane (Ultane) 60 ml STK-MED ONCE 01/10/19 09:06 01/10/19 09:07 DC Sodium Polystyrene Sulfonate (Kayexalate) 15 gm 1X ONCE 01/09/19 22:45 01/09/19 22:46 DC 01/10/19 00:28 15 GM Sodium Chloride 1,000 ml @ 100 mls/hr 1X ONCE 01/10/19 21:30 01/11/19 07:29 DC 01/10/19 21:37 100 MLS/HR Tamsulosin HCl (Flomax) 0.4 mg QHS 01/09/19 21:00 01/11/19 20:33 0.4 MG Tizanidine HCl (Zanaflex) 4 mg PRN Q8HRS PRN 01/09/19 15:15 01/12/19 08:57 4 MG Warfarin Sodium (Coumadin Per Pharmacy) 1 each PRN DAILY PRN 01/10/19 08:15 UNV Lab Laboratory Tests Test 01/11/19 12:45 01/11/19 14:40 01/11/19 17:13 01/11/19 21:22 Glucose (Fingerstick) 152 mg/dL (70-99) 182 mg/dL (70-99) 169 mg/dL (70-99) White Blood Count 10.1 x10^3/uL (4.0-11.0) Red Blood Count 2.31 x10^6/uL (4.30-5.70) Hemoglobin 7.6 g/dL (13.0-17.5) Hematocrit 23.1 % (39.0-53.0) Mean Corpuscular Volume 100 fL (79-100) Mean Corpuscular Hemoglobin 33 pg (25-35) Mean Corpuscular Hemoglobin Concent 33 g/dL (31-37) Red Cell Distribution Width 15.3 % (11.5-14.5) Platelet Count 108 x10^3/uL (140-400) Test 01/12/19 03:05 01/12/19 08:50 Prothrombin Time 17.0 SEC (11.7-14.0) Prothromb Time International Ratio 1.4 (0.8-1.1) Sodium Level 143 mmol/L (136-145) Potassium Level 4.2 mmol/L (3.5-5.1) Chloride Level 108 mmol/L (98-107) Carbon Dioxide Level 25 mmol/L (21-32) Anion Gap 10 (6-14) Blood Urea Nitrogen 31 mg/dL (8-26) Creatinine 1.5 mg/dL (0.7-1.3) Estimated GFR (Cockcroft-Gault) 45.5 Glucose Level 154 mg/dL (70-99) Calcium Level 7.7 mg/dL (8.5-10.1) Phosphorus Level 3.2 mg/dL (2.6-4.7) Albumin 2.4 g/dL (3.4-5.0) Hemoglobin 7.7 g/dL (13.0-17.5) Hematocrit 23.3 % (39.0-53.0) Mean Corpuscular Hemoglobin Concent 33 g/dL (31-37) Results All relevant outside records, renal labs, imaging studies, telemetry/EKG's were reviewed. HALLIE JOHNSON MD Jan 12, 2019 09:12
--- NOTE | 2019-01-12 10:53 | PDOC ---
PROGRESS NOTES Chief Complaint Chief Complaint A/P: s/p left hip sx 01/09 Hypotensive, hypovolemic post op - transferred icu 01/10 KELLEY, VMN HYperkalemia, corrected Dyslipidemia - cont statin A-Fib on eliquis, COPD stable Diabetes-Type II - Hypertension - CAD s/p stents - H/o left nephrectomy 03/28 renal ca - in remission Neuropathy - diabetic polyneuropathy, stable History of Present Illness History of Present Illness NSBP 130s, no sxs, on phone Left hip dressing dry was transferred to ICU 2 nights ago bec of hypotension, fluid responsive, NOT needing pressor HH today 7.7 MInimal EBL per OR note PLAn: ok to transfer back to 4N Dc mendez Dc IVF Acute rehab screen SW on case Target dc tmr AR[facility] Vitals Vitals Vital Signs Date Time Temp Pulse Resp B/P (MAP) Pulse Ox O2 Delivery O2 Flow Rate FiO2 01/12/19 08:57 119 130/51 01/12/19 07:10 20 Room Air 96.0 01/12/19 06:10 97 01/12/19 04:00 98.3 98.3 Physical Exam General: Alert, Oriented X3, Cooperative, mild distress Heart: Regular rate, Normal S1, Normal S2, Other (irregularly irregular) Lungs: Clear Abdomen: Normal bowel sounds Extremities: No clubbing, No cyanosis, No edema, Normal pulses Skin: No rashes, No breakdown, No significant lesion Labs LABS Laboratory Tests Test 01/11/19 12:45 01/11/19 14:40 01/11/19 17:13 01/11/19 21:22 Glucose (Fingerstick) 152 mg/dL (70-99) 182 mg/dL (70-99) 169 mg/dL (70-99) White Blood Count 10.1 x10^3/uL (4.0-11.0) Red Blood Count 2.31 x10^6/uL (4.30-5.70) Hemoglobin 7.6 g/dL (13.0-17.5) Hematocrit 23.1 % (39.0-53.0) Mean Corpuscular Volume 100 fL (79-100) Mean Corpuscular Hemoglobin 33 pg (25-35) Mean Corpuscular Hemoglobin Concent 33 g/dL (31-37) Red Cell Distribution Width 15.3 % (11.5-14.5) Platelet Count 108 x10^3/uL (140-400) Test 01/12/19 03:05 01/12/19 08:50 Prothrombin Time 17.0 SEC (11.7-14.0) Prothromb Time International Ratio 1.4 (0.8-1.1) Sodium Level 143 mmol/L (136-145) Potassium Level 4.2 mmol/L (3.5-5.1) Chloride Level 108 mmol/L (98-107) Carbon Dioxide Level 25 mmol/L (21-32) Anion Gap 10 (6-14) Blood Urea Nitrogen 31 mg/dL (8-26) Creatinine 1.5 mg/dL (0.7-1.3) Estimated GFR (Cockcroft-Gault) 45.5 Glucose Level 154 mg/dL (70-99) Calcium Level 7.7 mg/dL (8.5-10.1) Phosphorus Level 3.2 mg/dL (2.6-4.7) Albumin 2.4 g/dL (3.4-5.0) Hemoglobin 7.7 g/dL (13.0-17.5) Hematocrit 23.3 % (39.0-53.0) Mean Corpuscular Hemoglobin Concent 33 g/dL (31-37) Review of Systems Review of Systems m,inimal post op pain, all else neg Assessment and Plan Assessmemt and Plan Problems Medical Problems: (1) Chronic atrial fibrillation Status: Acute (2) Closed intertrochanteric fracture of femur Status: Acute (3) Fall at home Status: Acute (4) Hyperkalemia Status: Acute (5) Renal insufficiency Status: Acute Comment Review of Relevant I have reviewed the following items oleg (where applicable) has been applied. Labs Laboratory Tests Test 01/10/19 11:54 01/10/19 16:49 01/10/19 18:48 01/10/19 19:00 Glucose (Fingerstick) 190 mg/dL (70-99) 299 mg/dL (70-99) 293 mg/dL (70-99) 278 mg/dL (70-99) Test 01/10/19 19:15 01/10/19 20:41 01/10/19 21:45 01/11/19 04:30 White Blood Count 13.1 x10^3/uL (4.0-11.0) 11.0 x10^3/uL (4.0-11.0) Red Blood Count 2.98 x10^6/uL (4.30-5.70) 2.55 x10^6/uL (4.30-5.70) Hemoglobin 9.7 g/dL (13.0-17.5) 8.4 g/dL (13.0-17.5) Hematocrit 29.8 % (39.0-53.0) 25.1 % (39.0-53.0) Mean Corpuscular Volume 100 fL (79-100) 98 fL (79-100) Mean Corpuscular Hemoglobin 33 pg (25-35) 33 pg (25-35) Mean Corpuscular Hemoglobin Concent 33 g/dL (31-37) 34 g/dL (31-37) Red Cell Distribution Width 14.8 % (11.5-14.5) 14.8 % (11.5-14.5) Platelet Count 144 x10^3/uL (140-400) 114 x10^3/uL (140-400) Neutrophils (%) (Auto) 87 % (31-73) 86 % (31-73) Lymphocytes (%) (Auto) 5 % (24-48) 5 % (24-48) Monocytes (%) (Auto) 9 % (0-9) 9 % (0-9) Eosinophils (%) (Auto) 0 % (0-3) 0 % (0-3) Basophils (%) (Auto) 0 % (0-3) 0 % (0-3) Neutrophils # (Auto) 11.4 x10^3/uL (1.8-7.7) 9.4 x10^3/uL (1.8-7.7) Lymphocytes # (Auto) 0.6 x10^3/uL (1.0-4.8) 0.6 x10^3/uL (1.0-4.8) Monocytes # (Auto) 1.1 x10^3/uL (0.0-1.1) 1.0 x10^3/uL (0.0-1.1) Eosinophils # (Auto) 0.0 x10^3/uL (0.0-0.7) 0.0 x10^3/uL (0.0-0.7) Basophils # (Auto) 0.0 x10^3/uL (0.0-0.2) 0.0 x10^3/uL (0.0-0.2) Segmented Neutrophils % 85 % (35-66) Band Neutrophils % 8 % (0-9) Lymphocytes % 1 % (24-48) Monocytes % 6 % (0-10) Platelet Estimate Decreased (ADEQUATE) Glucose (Fingerstick) 266 mg/dL (70-99) Urine Collection Type U cath Urine Color Mayra Urine Clarity Clear Urine pH 5.0 Urine Specific [place] >=1.030 Urine Protein Negative mg/dL (NEG-TRACE) Urine Glucose (UA) Negative mg/dL (NEG) Urine Ketones (Stick) Trace mg/dL (NEG) Urine Blood Moderate (NEG) Urine Nitrite Negative (NEG) Urine Bilirubin Small (NEG) Urine Urobilinogen Dipstick 0.2 mg/dL (0.2 mg/dL) Urine Leukocyte Esterase Negative (NEG) Urine RBC Tntc /HPF (0-2) Urine WBC 1-4 /HPF (0-4) Urine Squamous Epithelial Cells Few /LPF Urine Bacteria 0 /HPF (0-FEW) Urine Hyaline Casts Many /HPF Urine Mucus Mod /LPF Prothrombin Time 17.0 SEC (11.7-14.0) Prothromb Time International Ratio 1.4 (0.8-1.1) Sodium Level 140 mmol/L (136-145) Potassium Level 4.7 mmol/L (3.5-5.1) Chloride Level 106 mmol/L (98-107) Carbon Dioxide Level 23 mmol/L (21-32) Anion Gap 11 (6-14) Blood Urea Nitrogen 32 mg/dL (8-26) Creatinine 1.7 mg/dL (0.7-1.3) Estimated GFR (Cockcroft-Gault) 39.4 Glucose Level 200 mg/dL (70-99) Calcium Level 7.8 mg/dL (8.5-10.1) Phosphorus Level 4.2 mg/dL (2.6-4.7) Albumin 2.6 g/dL (3.4-5.0) Triglycerides Level 89 mg/dL (0-150) Cholesterol Level 96 mg/dL (0-200) LDL Cholesterol, Calculated 44 mg/dL (0-100) VLDL Cholesterol, Calculated 18 mg/dL (0-40) Non-HDL Cholesterol Calculated 62 mg/dL (0-129) HDL Cholesterol 34 mg/dL (40-60) Cholesterol/HDL Ratio 2.8 Test 01/11/19 12:45 01/11/19 14:40 01/11/19 17:13 01/11/19 21:22 Glucose (Fingerstick) 152 mg/dL (70-99) 182 mg/dL (70-99) 169 mg/dL (70-99) White Blood Count 10.1 x10^3/uL (4.0-11.0) Red Blood Count 2.31 x10^6/uL (4.30-5.70) Hemoglobin 7.6 g/dL (13.0-17.5) Hematocrit 23.1 % (39.0-53.0) Mean Corpuscular Volume 100 fL (79-100) Mean Corpuscular Hemoglobin 33 pg (25-35) Mean Corpuscular Hemoglobin Concent 33 g/dL (31-37) Red Cell Distribution Width 15.3 % (11.5-14.5) Platelet Count 108 x10^3/uL (140-400) Test 01/12/19 03:05 01/12/19 08:50 Prothrombin Time 17.0 SEC (11.7-14.0) Prothromb Time International Ratio 1.4 (0.8-1.1) Sodium Level 143 mmol/L (136-145) Potassium Level 4.2 mmol/L (3.5-5.1) Chloride Level 108 mmol/L (98-107) Carbon Dioxide Level 25 mmol/L (21-32) Anion Gap 10 (6-14) Blood Urea Nitrogen 31 mg/dL (8-26) Creatinine 1.5 mg/dL (0.7-1.3) Estimated GFR (Cockcroft-Gault) 45.5 Glucose Level 154 mg/dL (70-99) Calcium Level 7.7 mg/dL (8.5-10.1) Phosphorus Level 3.2 mg/dL (2.6-4.7) Albumin 2.4 g/dL (3.4-5.0) Hemoglobin 7.7 g/dL (13.0-17.5) Hematocrit 23.3 % (39.0-53.0) Mean Corpuscular Hemoglobin Concent 33 g/dL (31-37) Laboratory Tests Test 01/11/19 12:45 01/11/19 14:40 01/11/19 17:13 01/11/19 21:22 Glucose (Fingerstick) 152 mg/dL (70-99) 182 mg/dL (70-99) 169 mg/dL (70-99) White Blood Count 10.1 x10^3/uL (4.0-11.0) Red Blood Count 2.31 x10^6/uL (4.30-5.70) Hemoglobin 7.6 g/dL (13.0-17.5) Hematocrit 23.1 % (39.0-53.0) Mean Corpuscular Volume 100 fL (79-100) Mean Corpuscular Hemoglobin 33 pg (25-35) Mean Corpuscular Hemoglobin Concent 33 g/dL (31-37) Red Cell Distribution Width 15.3 % (11.5-14.5) Platelet Count 108 x10^3/uL (140-400) Test 01/12/19 03:05 01/12/19 08:50 Prothrombin Time 17.0 SEC (11.7-14.0) Prothromb Time International Ratio 1.4 (0.8-1.1) Sodium Level 143 mmol/L (136-145) Potassium Level 4.2 mmol/L (3.5-5.1) Chloride Level 108 mmol/L (98-107) Carbon Dioxide Level 25 mmol/L (21-32) Anion Gap 10 (6-14) Blood Urea Nitrogen 31 mg/dL (8-26) Creatinine 1.5 mg/dL (0.7-1.3) Estimated GFR (Cockcroft-Gault) 45.5 Glucose Level 154 mg/dL (70-99) Calcium Level 7.7 mg/dL (8.5-10.1) Phosphorus Level 3.2 mg/dL (2.6-4.7) Albumin 2.4 g/dL (3.4-5.0) Hemoglobin 7.7 g/dL (13.0-17.5) Hematocrit 23.3 % (39.0-53.0) Mean Corpuscular Hemoglobin Concent 33 g/dL (31-37) Medications Current Medications Fentanyl Citrate (Fentanyl 2ml Vial) 50 mcg 1X ONCE IVP Last administered on 01/09/19at 12:46; Start 01/09/19 at 12:30; Stop 01/09/19 at 12:31; Status DC Orphenadrine Citrate (Norflex) 60 mg 1X ONCE IV Last administered on at 12:46; Start 01/09/19 at 12:30; Stop 01/09/19 at 12:31; Status DC Fentanyl Citrate (Fentanyl 2ml Vial) 50 mcg 1X ONCE IVP Last administered on 01/09/19at 13:37; Start 01/09/19 at 13:30; Stop 01/09/19 at 13:31; Status DC Fentanyl Citrate (Fentanyl 2ml Vial) 50 mcg PRN Q2HR PRN IV PAIN Last administered on 01/10/19at 04:36; Start 01/09/19 at 14:30; Stop 01/10/19 at 04:37; Status DC Ondansetron HCl (Zofran) 4 mg PRN Q4HRS PRN IV NAUSEA/VOMITING; Start 01/09/19 at 15:00 Acetaminophen (Tylenol Supp) 650 mg PRN Q4HRS PRN [place] TEMP OVER 100.4F OR MILD PAIN; Start 01/09/19 at 15:00 Docusate Sodium (Colace) 100 mg PRN BID PRN PO CONSTIPATION Last administered on 01/12/19 08:58; Start 01/09/19 at 15:00 Atorvastatin Calcium (Lipitor) 20 mg HS PO Last administered on 01/11/19at 20:33; Start 01/09/19 at 21:00 Diltiazem HCl (Cardizem 24hr Cd) 240 mg DAILY PO Last administered on 01/11/19at 08:34; Start 01/09/19 at 15:30; Stop 01/11/19 at 11:58; Status DC Tamsulosin HCl (Flomax) 0.4 mg DAILY PO ; Start 01/09/19 at 15:30; Stop 01/09/19 at 16:31; Status DC Tizanidine HCl (Zanaflex) 4 mg PRN Q8HRS PRN PO MUSCLE SPASMS Last administered on 01/12/19at 08:57; Start 01/09/19 at 15:15 Acetaminophen/ Hydrocodone Bitart (Lortab 5/325) 1 tab PRN Q4HRS PRN PO PAIN Last administered on 01/12/19at 06:10; Start 01/09/19 at 15:15 Morphine Sulfate (Morphine Sulfate) 4 mg PRN Q2HR PRN IV PAIN Last administered on 01/11/19at 04:05; Start 01/09/19 at 15:15 Tamsulosin HCl (Flomax) 0.4 mg QHS PO Last administered on 01/11/19at 20:33; Start 01/09/19 at 21:00 Dextrose (Dextrose 50%-Water Syringe) 12.5 gm PRN Q15MIN PRN IV SEE COMMENTS; Start 01/09/19 at 17:00; Stop 01/10/19 at 14:01; Status DC Cefazolin Sodium/ Dextrose 50 ml @ 100 mls/hr 1X ONCE IV ; Start 01/09/19 at 18:30; Stop 01/09/19 at 18:59; Status Cancel Cefazolin Sodium/ Dextrose 50 ml @ 100 mls/hr 1X ONCE IV Last administered on 01/10/19at 07:57; Start 01/10/19 at 08:00; Stop 01/10/19 at 08:29; Status DC Sodium Chloride 1,000 ml @ 75 mls/hr [id number] IV Last administered on 01/12/19at 05:06; Start 01/09/19 at 22:30 Insulin Human Lispro (HumaLOG) 0-5 UNITS TIDWMEALS SQ Last administered on 01/12/19at 09:01; Start 01/10/19 at 08:00 Dextrose (Dextrose 50%-Water Syringe) 12.5 gm PRN Q15MIN PRN IV SEE COMMENTS; Start 01/09/19 at 22:30 Metoprolol Succinate (Toprol Xl) 200 mg DAILY PO Last administered on 01/10at 10:36; Start 01/10/19 at 09:00; Stop 01/11/19 at 11:58; Status DC Sodium Polystyrene Sulfonate (Kayexalate) 15 gm 1X ONCE PO Last administered on 01/10/19at 00:28; Start 01/09/19 at 22:45; Stop 01/09/19 at 22:46; Status DC Morphine Sulfate 5 mg/Ketorolac Tromethamine 30 mg/Ropivacaine 60 ml/Epinephrine HCl 0.5 mg/Sodium Chloride 100 ml @ 100 mls/hr 1X ONCE INT ART Last administered on 01/10/19at 08:28; Start 01/10/19 at 07:15; Stop 01/10/19 at 08:14; Status DC Propofol 20 ml @ As Directed STK-MED ONCE IV ; Start 01/10/19 at 07:37; Stop 01/10/19 at 07:37; Status DC Lidocaine HCl (Xylocaine-Mpf 1% 5ml Vial) 5 ml STK-MED ONCE .ROUTE ; Start 01/10/19 at 07:37; Stop 01/10/19 at 07:37; Status DC Dexamethasone Sodium Phosphate (Decadron) 4 mg STK-MED ONCE .ROUTE ; Start 01/10/19 at 07:37; Stop 01/10/19 at 07:37; Status DC Ondansetron HCl (Zofran) 4 mg STK-MED ONCE .ROUTE ; Start 01/10/19 at 07:37; Stop 01/10/19 at 07:37; Status DC Fentanyl Citrate (Fentanyl 2ml Vial) 100 mcg STK-MED ONCE .ROUTE ; Start 01/10/19 at 07:37; Stop 01/10/19 at 07:38; Status DC Warfarin Sodium (Coumadin Per Pharmacy) 1 each PRN DAILY PRN MC SEE COMMENTS; Start 01/10/19 at 08:15; Status UNV Cefazolin Sodium/ Dextrose 50 ml @ 100 mls/hr Q8H IV Last administered on 01/11/19at 08:40; Start 01/10/19 at 16:00; Stop 01/11/19 at 08:29; Status DC Phenylephrine HCl (PHENYLEPHRINE in 0.9% NACL PF) 1 mg STK-MED ONCE IV ; Start 01/10/19 at 09:06; Stop 01/10/19 at 09:06; Status DC Phenylephrine HCl (PHENYLEPHRINE in 0.9% NACL PF) 1 mg STK-MED ONCE IV ; Start 01/10/19 at 09:06; Stop 01/10/19 at 09:06; Status DC Sevoflurane (Ultane) 60 ml STK-MED ONCE IH ; Start 01/10/19 at 09:06; Stop 01/10/19 at 09:07; Status DC Insulin Human Lispro (HumaLOG VIAL for OP,RR ONLY) 0-10 units PRN Q1HR PRN SQ PER PROTOCOL Last administered on 01/10/19at 09:40; Start 01/10/19 at 09:45; Stop 01/11/19 at 09:14; Status DC Ondansetron HCl (Zofran) 4 mg PRN Q6HRS PRN IV NAUSEA/VOMITING; Start 01/10/19 at 10:00; Stop 01/11/19 at 09:59; Status DC Fentanyl Citrate (Fentanyl 2ml Vial) 25 mcg PRN Q5MIN PRN IV MILD PAIN 1-3; Start 01/10/19 at 10:00; Stop 01/11/19 at 09:59; Status DC Fentanyl Citrate (Fentanyl 2ml Vial) 50 mcg PRN Q5MIN PRN IV MODERATE TO SEVERE PAIN; Start 01/10/19 at 10:00; Stop 01/11/19 at 09:59; Status DC Morphine Sulfate (Morphine Sulfate) 1 mg PRN Q10MIN PRN IV SEVERE PAIN 7-10; Start 01/10/19 at 10:00; Stop 01/11/19 at 09:59; Status DC Ringer's Solution 1,000 ml @ 30 mls/hr Q24H IV ; Start 01/10/19 at 09:46; Stop 01/10/19 at 21:45; Status DC Lidocaine HCl (Xylocaine-Mpf 1% 2ml Vial) 2 ml PRN 1X PRN ID PRIOR TO IV START; Start 01/10/19 at 10:00; Stop 01/11/19 at 09:59; Status DC Hydromorphone HCl (Dilaudid) 0.5 mg PRN Q10MIN PRN IV SEV PAIN, Second choice; Start 01/10/19 at 10:00; Stop 01/11/19 at 09:59; Status DC Prochlorperazine Edisylate (Compazine) 5 mg PACU PRN PRN IV NAUSEA, MRX1; Start 01/10/19 at 10:00; Stop 01/11/19 at 09:59; Status DC Apixaban (Eliquis) 5 mg BID PO Last administered on 01/12/19at 08:58; Start 01/11/19 at 09:00 Sodium Chloride 500 ml @ 250 mls/hr 1X ONCE IV Last administered on at 19:10; Start 01/10/19 at 19:10; Stop 01/10/19 at 21:09; Status DC Sodium Chloride 1,000 ml @ 100 mls/hr 1X ONCE IV Last administered on 01/10/19at 21:37; Start 01/10/19 at 21:30; Stop 01/11/19 at 07:29; Status DC Info (Anti-Coagulation Monitoring By Pharmacy) 1 each PRN DAILY PRN MC SEE COMMENTS Last administered on 01/11/19at 09:46; Start 01/11/19 at 07:45 Diazepam (Valium) 2 mg Q6H PRN PO muscle spasm Last administered on 01/12/19 08:57; Start 01/11/19 at 09:30 Metoprolol Tartrate (Lopressor) 25 mg BID PO Last administered on 01/12/19at 08:57; Start 01/11/19 at 21:00 Active Scripts Active Reported Vitamin C (Ascorbic Acid) 1,000 Mg Tablet 1,000 Mg PO DAILY Fish Oil 1,400 Mg Softgel ([place]-3/Dha/Epa/Fish Oil) 1 Each Capsule.dr 1 Each PO DAILY Centrum Silver Men Tablet (Multivit-Min/FA/Lycopen/Lutein) 1 Each Tablet 1 Each PO DAILY Cinnamon (Cinnamon Bark) 500 Mg Capsule 1,000 Mg PO BID Chromium Picolinate 400 Mcg Tablet 400 Mcg PO DAILY Tamsulosin Hcl 0.4 Mg Cap.er.24h 0.4 Mg PO DAILY Nabumetone 500 Mg Tablet 1 Tab PO BID Metformin Hcl 500 Mg Tablet 1,000 Mg PO BIDWMEALS Metoprolol Succinate ( Xl ) (Metoprolol Succinate) 200 Mg Tab.er.24h 200 Mg PO DAILY Cozaar (Losartan Potassium) 25 Mg Tablet 25 Mg PO DAILY Januvia (Sitagliptin Phosphate) 100 Mg Tablet 100 Mg PO HS Glimepiride 2 Mg Tablet 2 Mg PO BID Furosemide 40 Mg Tablet 40 Mg PO DAILY PRN Eliquis (Apixaban) 5 Mg Tablet 5 Mg PO BID Cartia Xt (Diltiazem Hcl) 240 Mg Cap.er.24h 240 Mg PO DAILY Atorvastatin Calcium 20 Mg Tablet 20 Mg PO HS Aspirin 81 Mg Tab.chew 1 Tab PO DAILY Vitals/I & O Vital Sign - Last 24 Hours 01/11/19 01/11/19 01/11/1919 11:10 11:16 11:28 11:42 Pulse 89 75 75 69 Resp 18 18 18 18 B/P (MAP) 57/33 (41) 54/45 (48) 74/43 (53) 81/49 (60) Pulse Ox 98 98 98 98 O2 Delivery Nasal Cannula Nasal Cannula Nasal Cannula Nasal Cannula O2 Flow Rate 2.0 2.0 2.0 2.0 01/11/19 01/11/19 01/11/19 01/11/19 12:00 12:00 13:00 13:30 Temp 98.8 98.8 Pulse 66 69 84 Resp 20 18 18 B/P (MAP) 96/57 (70) 81/49 (60) 106/60 (75) Pulse Ox 98 98 98 O2 Delivery Nasal Cannula Nasal Cannula Nasal Cannula Room Air O2 Flow Rate 2.0 2.0 2.0 01/11/19 01/11/19 01/11/19 01/11/19 15:00 16:00 16:00 17:00 Temp 98.2 98.2 Pulse 74 89 94 Resp 18 18 18 B/P (MAP) 94/63 (73) 122/59 (80) 139/61 (87) Pulse Ox 94 95 97 O2 Delivery Nasal Cannula Nasal Cannula Nasal Cannula Nasal Cannula O2 Flow Rate 2.0 2.0 2.0 2.0 01/11/19 01/11/19 01/11/19 01/11/19 18:00 18:00 19:00 19:15 Pulse 94 102 103 Resp 18 18 20 22 B/P (MAP) 139/61 (87) 152/82 (105) 135/70 (91) Pulse Ox 97 97 96 92 O2 Delivery Nasal Cannula Nasal Cannula Nasal Cannula Nasal Cannula O2 Flow Rate 2.0 2.0 2.0 2.0 01/11/19 01/11/19 01/11/19 01/11/19 20:00 20:00 20:15 20:33 Temp 97.5 97.5 Pulse 105 99 Resp 18 24 B/P (MAP) 111/74 (86) 132/59 Pulse Ox 96 98 O2 Delivery Nasal Cannula Nasal Cannula Nasal Cannula O2 Flow Rate 2.0 2.0 2.0 01/11/19 01/11/19 01/11/19 01/12/19 21:00 22:00 23:00 00:00 Pulse 102 89 84 Resp 22 16 15 B/P (MAP) 125/52 (76) 100/53 (69) 115/64 (81) Pulse Ox 97 96 99 O2 Delivery Nasal Cannula Nasal Cannula Nasal Cannula Nasal Cannula O2 Flow Rate 2.0 2.0 2.0 2.0 01/12/19 01/12/19 01/12/19 01/12/19 00:01 01:00 02:00 03:00 Temp 98.2 98.2 Pulse 82 82 79 89 Resp 22 16 14 22 B/P (MAP) 107/59 (75) 125/63 (83) 126/60 (82) 126/78 (94) Pulse Ox 99 96 98 96 O2 Delivery Nasal Cannula Nasal Cannula Nasal Cannula Nasal Cannula O2 Flow Rate 2.0 2.0 2.0 2.0 01/12/19 01/12/19 01/12/19 01/12/19 04:00 04:00 05:00 06:00 Temp 98.3 98.3 Pulse 92 91 95 Resp 22 24 15 B/P (MAP) 140/64 (89) 82/74 (77) 141/61 (87) Pulse Ox 94 96 97 O2 Delivery Nasal Cannula Nasal Cannula Nasal Cannula Nasal Cannula O2 Flow Rate 2.0 2.0 2.0 2.0 01/12/19 01/12/19 01/12/19 06:10 07:10 08:57 Pulse 119 Resp 18 20 B/P (MAP) 130/51 Pulse Ox 97 O2 Delivery Nasal Cannula Room Air O2 Flow Rate 2.0 96.0 Intake and Output 01/11/19 01/11/19 01/12/19 15:00 23:00 07:00 Intake Total 620 ml 400 ml 1814.25 ml Output Total 240 ml 445 ml 495 ml Balance 380 ml -45 ml 1319.25 ml JUANITO RAMÍREZ MD Jan 12, 2019 10:53
--- NOTE | 2019-01-12 12:53 | NUR ---
SS following up with discharge planning. SS met with pt to discuss discharge planning and acute rehabilitation. Pt agreeable to inpatient rehabilitation but reported that he and his live in [place], [place] and his is a country girl and does not like interstate driving. Pt reported that he preferred to stay in [place], [place]. SS discussed correction unit options with pt to include [facility]. Pt reported that he wanted to contact his spouse to discuss location and would notify SS once decided. SS will continue to follow for discharge planning.
[2019-01-12] MEDS: MORPHINE SULFATE 4 MG/ML VIAL. IV PRN (15:51)
--- NOTE | 2019-01-12 16:04 | NUR ---
Received patient transfer from ICU, hand sign writer agrees with previous head to toe assessment, will continue to monitor patient.
--- NOTE | 2019-01-12 16:05 | NUR ---
7A Cramps in left quad area and laterally to incision site. Med(s)given as ordered w diminished c/o in 25-40 min to tolerable level(3). Stool softeners started (last BM 01/08).Case removed /no void at time transfer ([id number]). Hypotension resolved,appetite returning. Talk w SW on next step prior to going home. Continue POC
--- NOTE | 2019-01-12 18:00 | PDOC ---
PROGRESS NOTES Subjective Subjective Patient seen and examined He looks and feels better today. Objective Objective Vital Signs Date Time Temp Pulse Resp B/P (MAP) Pulse Ox O2 Delivery O2 Flow Rate FiO2 01/12/19 17:00 99.2 104 18 146/62 (90) 94 Room Air 99.2 01/12/19 15:51 91.0 Intake and Output 01/12/19 07:00 Intake Total 2834.25 ml Output Total 1180 ml Balance 1654.25 ml Intake Oral 1435 ml IV Total 1399.25 ml Output Urine Total 1180 ml Physical Exam Abdomen: Normal bowel sounds Heart: Regular rate General: mild distress Lungs: Clear to auscultation Assessment Assessment Problems Medical Problems: (1) Chronic atrial fibrillation Status: Acute (2) Closed intertrochanteric fracture of femur Status: Acute (3) Fall at home Status: Acute (4) Hyperkalemia Status: Acute (5) Renal insufficiency Status: Acute 1. Traumatic fall with left intertrochanteric fracture; s/p surgical repair. POD #2. Tripped and fell- no other recent falls. Blood pressure significantly improved. Transferred back to fourth floor. 2. AFIB; rate controlled with metoprolol and Cardizem. [id number]. Eliquis resumed. 3. CAD s/p previous PCI/stent 2 years ago. CP free. Follows with [facility] 4. KELLEY, as per renal 5. Anemia, post-op. As per the surgery service. 6. COPD; compensated 7. Hypertension; transferred to ICU overnight due to hypotension. BP remains marginal. Currently receiving fluid bolus. 8 Hyperlipidemia; statin 9. Diabetes, II. 10. H/o renal CA s/p left nephrectomy Comment Review of Relevant I have reviewed the following items oleg (where applicable) has been applied. Labs Laboratory Tests Test 01/10/19 18:48 01/10/19 19:00 01/10/19 19:15 01/10/19 20:41 Glucose (Fingerstick) 293 mg/dL (70-99) 278 mg/dL (70-99) 266 mg/dL (70-99) White Blood Count 13.1 x10^3/uL (4.0-11.0) Red Blood Count 2.98 x10^6/uL (4.30-5.70) Hemoglobin 9.7 g/dL (13.0-17.5) Hematocrit 29.8 % (39.0-53.0) Mean Corpuscular Volume 100 fL (79-100) Mean Corpuscular Hemoglobin 33 pg (25-35) Mean Corpuscular Hemoglobin Concent 33 g/dL (31-37) Red Cell Distribution Width 14.8 % (11.5-14.5) Platelet Count 144 x10^3/uL (140-400) Neutrophils (%) (Auto) 87 % (31-73) Lymphocytes (%) (Auto) 5 % (24-48) Monocytes (%) (Auto) 9 % (0-9) Eosinophils (%) (Auto) 0 % (0-3) Basophils (%) (Auto) 0 % (0-3) Neutrophils # (Auto) 11.4 x10^3/uL (1.8-7.7) Lymphocytes # (Auto) 0.6 x10^3/uL (1.0-4.8) Monocytes # (Auto) 1.1 x10^3/uL (0.0-1.1) Eosinophils # (Auto) 0.0 x10^3/uL (0.0-0.7) Basophils # (Auto) 0.0 x10^3/uL (0.0-0.2) Segmented Neutrophils % 85 % (35-66) Band Neutrophils % 8 % (0-9) Lymphocytes % 1 % (24-48) Monocytes % 6 % (0-10) Platelet Estimate Decreased (ADEQUATE) Test 01/10/19 21:45 01/11/19 04:30 01/11/19 12:45 01/11/19 14:40 Urine Collection Type U cath Urine Color Mayra Urine Clarity Clear Urine pH 5.0 Urine Specific [place] >=1.030 Urine Protein Negative mg/dL (NEG-TRACE) Urine Glucose (UA) Negative mg/dL (NEG) Urine Ketones (Stick) Trace mg/dL (NEG) Urine Blood Moderate (NEG) Urine Nitrite Negative (NEG) Urine Bilirubin Small (NEG) Urine Urobilinogen Dipstick 0.2 mg/dL (0.2 mg/dL) Urine Leukocyte Esterase Negative (NEG) Urine RBC Tntc /HPF (0-2) Urine WBC 1-4 /HPF (0-4) Urine Squamous Epithelial Cells Few /LPF Urine Bacteria 0 /HPF (0-FEW) Urine Hyaline Casts Many /HPF Urine Mucus Mod /LPF White Blood Count 11.0 x10^3/uL (4.0-11.0) 10.1 x10^3/uL (4.0-11.0) Red Blood Count 2.55 x10^6/uL (4.30-5.70) 2.31 x10^6/uL (4.30-5.70) Hemoglobin 8.4 g/dL (13.0-17.5) 7.6 g/dL (13.0-17.5) Hematocrit 25.1 % (39.0-53.0) 23.1 % (39.0-53.0) Mean Corpuscular Volume 98 fL (79-100) 100 fL (79-100) Mean Corpuscular Hemoglobin 33 pg (25-35) 33 pg (25-35) Mean Corpuscular Hemoglobin Concent 34 g/dL (31-37) 33 g/dL (31-37) Red Cell Distribution Width 14.8 % (11.5-14.5) 15.3 % (11.5-14.5) Platelet Count 114 x10^3/uL (140-400) 108 x10^3/uL (140-400) Neutrophils (%) (Auto) 86 % (31-73) Lymphocytes (%) (Auto) 5 % (24-48) Monocytes (%) (Auto) 9 % (0-9) Eosinophils (%) (Auto) 0 % (0-3) Basophils (%) (Auto) 0 % (0-3) Neutrophils # (Auto) 9.4 x10^3/uL (1.8-7.7) Lymphocytes # (Auto) 0.6 x10^3/uL (1.0-4.8) Monocytes # (Auto) 1.0 x10^3/uL (0.0-1.1) Eosinophils # (Auto) 0.0 x10^3/uL (0.0-0.7) Basophils # (Auto) 0.0 x10^3/uL (0.0-0.2) Prothrombin Time 17.0 SEC (11.7-14.0) Prothromb Time International Ratio 1.4 (0.8-1.1) Sodium Level 140 mmol/L (136-145) Potassium Level 4.7 mmol/L (3.5-5.1) Chloride Level 106 mmol/L (98-107) Carbon Dioxide Level 23 mmol/L (21-32) Anion Gap 11 (6-14) Blood Urea Nitrogen 32 mg/dL (8-26) Creatinine 1.7 mg/dL (0.7-1.3) Estimated GFR (Cockcroft-Gault) 39.4 Glucose Level 200 mg/dL (70-99) Calcium Level 7.8 mg/dL (8.5-10.1) Phosphorus Level 4.2 mg/dL (2.6-4.7) Albumin 2.6 g/dL (3.4-5.0) Triglycerides Level 89 mg/dL (0-150) Cholesterol Level 96 mg/dL (0-200) LDL Cholesterol, Calculated 44 mg/dL (0-100) VLDL Cholesterol, Calculated 18 mg/dL (0-40) Non-HDL Cholesterol Calculated 62 mg/dL (0-129) HDL Cholesterol 34 mg/dL (40-60) Cholesterol/HDL Ratio 2.8 Glucose (Fingerstick) 152 mg/dL (70-99) Test 01/11/19 17:13 01/11/19 21:22 01/12/19 03:05 01/12/19 08:50 Glucose (Fingerstick) 182 mg/dL (70-99) 169 mg/dL (70-99) Prothrombin Time 17.0 SEC (11.7-14.0) Prothromb Time International Ratio 1.4 (0.8-1.1) Sodium Level 143 mmol/L (136-145) Potassium Level 4.2 mmol/L (3.5-5.1) Chloride Level 108 mmol/L (98-107) Carbon Dioxide Level 25 mmol/L (21-32) Anion Gap 10 (6-14) Blood Urea Nitrogen 31 mg/dL (8-26) Creatinine 1.5 mg/dL (0.7-1.3) Estimated GFR (Cockcroft-Gault) 45.5 Glucose Level 154 mg/dL (70-99) Calcium Level 7.7 mg/dL (8.5-10.1) Phosphorus Level 3.2 mg/dL (2.6-4.7) Albumin 2.4 g/dL (3.4-5.0) Hemoglobin 7.7 g/dL (13.0-17.5) Hematocrit 23.3 % (39.0-53.0) Mean Corpuscular Hemoglobin Concent 33 g/dL (31-37) Test 01/12/19 13:23 01/12/19 16:09 Glucose (Fingerstick) 163 mg/dL (70-99) 171 mg/dL (70-99) Laboratory Tests Test 01/11/19 21:22 01/12/19 03:05 01/12/19 08:50 01/12/19 13:23 Glucose (Fingerstick) 169 mg/dL (70-99) 163 mg/dL (70-99) Prothrombin Time 17.0 SEC (11.7-14.0) Prothromb Time International Ratio 1.4 (0.8-1.1) Sodium Level 143 mmol/L (136-145) Potassium Level 4.2 mmol/L (3.5-5.1) Chloride Level 108 mmol/L (98-107) Carbon Dioxide Level 25 mmol/L (21-32) Anion Gap 10 (6-14) Blood Urea Nitrogen 31 mg/dL (8-26) Creatinine 1.5 mg/dL (0.7-1.3) Estimated GFR (Cockcroft-Gault) 45.5 Glucose Level 154 mg/dL (70-99) Calcium Level 7.7 mg/dL (8.5-10.1) Phosphorus Level 3.2 mg/dL (2.6-4.7) Albumin 2.4 g/dL (3.4-5.0) Hemoglobin 7.7 g/dL (13.0-17.5) Hematocrit 23.3 % (39.0-53.0) Mean Corpuscular Hemoglobin Concent 33 g/dL (31-37) Test 01/12/19 16:09 Glucose (Fingerstick) 171 mg/dL (70-99) Medications Current Medications Fentanyl Citrate (Fentanyl 2ml Vial) 50 mcg 1X ONCE IVP Last administered on 01/09/19at 12:46; Start 01/09/19 at 12:30; Stop 01/09/19 at 12:31; Status DC Orphenadrine Citrate (Norflex) 60 mg 1X ONCE IV Last administered on 01/09/19at 12:46; Start 01/09/19 at 12:30; Stop 01/09/19 at 12:31; Status DC Fentanyl Citrate (Fentanyl 2ml Vial) 50 mcg 1X ONCE IVP Last administered on 01/09/19at 13:37; Start 01/09/19 at 13:30; Stop 01/09/19 at 13:31; Status DC Fentanyl Citrate (Fentanyl 2ml Vial) 50 mcg PRN Q2HR PRN IV PAIN Last administered on 01/10/19 04:36; Start 01/09/19 at 14:30; Stop 01/10/19 at 04:37; Status DC Ondansetron HCl (Zofran) 4 mg PRN Q4HRS PRN IV NAUSEA/VOMITING; Start 01/09/19 at 15:00 Acetaminophen (Tylenol Supp) 650 mg PRN Q4HRS PRN OH TEMP OVER 100.4F OR MILD PAIN; Start 01/09/19 at 15:00 Docusate Sodium (Colace) 100 mg PRN BID PRN PO CONSTIPATION Last administered on 01/12/19 08:58; Start 01/09/19 at 15:00 Atorvastatin Calcium (Lipitor) 20 mg HS PO Last administered on 01/11/19 20:33; Start 01/09/19 at 21:00 Diltiazem HCl (Cardizem 24hr Cd) 240 mg DAILY PO Last administered on 01/11/19 08:34; Start 01/09/19 at 15:30; Stop 01/11/19 at 11:58; Status DC Tamsulosin HCl (Flomax) 0.4 mg DAILY PO ; Start 01/09/19 at 15:30; Stop 01/09/19 at 16:31; Status DC Tizanidine HCl (Zanaflex) 4 mg PRN Q8HRS PRN PO MUSCLE SPASMS, 1ST CHOICE Last administered on 01/12/19 08:57; Start 01/09/19 at 15:15 Acetaminophen/ Hydrocodone Bitart (Lortab 5/325) 1 tab PRN Q4HRS PRN PO MODERATE PAIN, SEVERE PAIN PO Last administered on 01/12/19 13:47; Start 01/09/19 at 15:15 Morphine Sulfate (Morphine Sulfate) 4 mg PRN Q2HR PRN IV PAIN Last administered on 01/12/19at 15:51; Start 01/09/19 at 15:15 Tamsulosin HCl (Flomax) 0.4 mg QHS PO Last administered on 01/11/19at 20:33; Start 01/09/19 at 21:00 Dextrose (Dextrose 50%-Water Syringe) 12.5 gm PRN Q15MIN PRN IV SEE COMMENTS; Start 01/09/19 at 17:00; Stop 01/10/19 at 14:01; Status DC Cefazolin Sodium/ Dextrose 50 ml @ 100 mls/hr 1X ONCE IV ; Start 01/09/19 at 18:30; Stop 01/09/19 at 18:59; Status Cancel Cefazolin Sodium/ Dextrose 50 ml @ 100 mls/hr 1X ONCE IV Last administered on 01/10/19at 07:57; Start 01/10/19 at 08:00; Stop 01/10/19 at 08:29; Status DC Sodium Chloride 1,000 ml @ 75 mls/hr [id number] IV Last administered on 01/12/19at 05:06; Start 01/09/19 at 22:30; Stop 01/12/19 at 10:52; Status DC Insulin Human Lispro (HumaLOG) 0-5 UNITS TIDWMEALS SQ Last administered on 01/12/19at 16:41; Start 01/10/19 at 08:00 Dextrose (Dextrose 50%-Water Syringe) 12.5 gm PRN Q15MIN PRN IV SEE COMMENTS; Start 01/09/19 at 22:30 Metoprolol Succinate (Toprol Xl) 200 mg DAILY PO Last administered on 01/10/19at 10:36; Start 01/10/19 at 09:00; Stop 01/11/19 at 11:58; Status DC Sodium Polystyrene Sulfonate (Kayexalate) 15 gm 1X ONCE PO Last administered on 01/10/19at 00:28; Start 01/09/19 at 22:45; Stop 01/09/19 at 22:46; Status DC Morphine Sulfate 5 mg/Ketorolac Tromethamine 30 mg/Ropivacaine 60 ml/Epinephrine HCl 0.5 mg/Sodium Chloride 100 ml @ 100 mls/hr 1X ONCE INT ART Last administered on 01/10/19at 08:28; Start 01/10/19 at 07:15; Stop 01/10/19 at 08:14; Status DC Propofol 20 ml @ As Directed STK-MED ONCE IV ; Start 01/10/19 at 07:37; Stop 01/10/19 at 07:37; Status DC Lidocaine HCl (Xylocaine-Mpf 1% 5ml Vial) 5 ml STK-MED ONCE .ROUTE ; Start 01/10/19 at 07:37; Stop 01/10/19 at 07:37; Status DC Dexamethasone Sodium Phosphate (Decadron) 4 mg STK-MED ONCE .ROUTE ; Start 01/10/19 at 07:37; Stop 01/10/19 at 07:37; Status DC Ondansetron HCl (Zofran) 4 mg STK-MED ONCE .ROUTE ; Start 01/10/19 at 07:37; Stop 01/10/19 at 07:37; Status DC Fentanyl Citrate (Fentanyl 2ml Vial) 100 mcg STK-MED ONCE .ROUTE ; Start 01/10/19 at 07:37; Stop 01/10/19 at 07:38; Status DC Warfarin Sodium (Coumadin Per Pharmacy) 1 each PRN DAILY PRN MC SEE COMMENTS; Start 01/10/19 at 08:15; Status UNV Cefazolin Sodium/ Dextrose 50 ml @ 100 mls/hr Q8H IV Last administered on 01/11/19at 08:40; Start 01/10/19 at 16:00; Stop 01/11/19 at 08:29; Status DC Phenylephrine HCl (PHENYLEPHRINE in 0.9% NACL PF) 1 mg STK-MED ONCE IV ; Start 01/10/19 at 09:06; Stop 01/10/19 at 09:06; Status DC Phenylephrine HCl (PHENYLEPHRINE in 0.9% NACL PF) 1 mg STK-MED ONCE IV ; Start 01/10/19 at 09:06; Stop 01/10/19 at 09:06; Status DC Sevoflurane (Ultane) 60 ml STK-MED ONCE IH ; Start 01/10/19 at 09:06; Stop 01/10/19 at 09:07; Status DC Insulin Human Lispro (HumaLOG VIAL for OP,RR ONLY) 0-10 units PRN Q1HR PRN SQ PER PROTOCOL Last administered on 01/10/19at 09:40; Start 01/10/19 at 09:45; Stop 01/11/19 at 09:14; Status DC Ondansetron HCl (Zofran) 4 mg PRN Q6HRS PRN IV NAUSEA/VOMITING; Start 01/10/19 at 10:00; Stop 01/11/19 at 09:59; Status DC Fentanyl Citrate (Fentanyl 2ml Vial) 25 mcg PRN Q5MIN PRN IV MILD PAIN 1-3; Start 01/10/19 at 10:00; Stop 01/11/19 at 09:59; Status DC Fentanyl Citrate (Fentanyl 2ml Vial) 50 mcg PRN Q5MIN PRN IV MODERATE TO SEVERE PAIN; Start 01/10/19 at 10:00; Stop 01/11/19 at 09:59; Status DC Morphine Sulfate (Morphine Sulfate) 1 mg PRN Q10MIN PRN IV SEVERE PAIN 7-10; Start 01/10/19 at 10:00; Stop 01/11/19 at 09:59; Status DC Ringer's Solution 1,000 ml @ 30 mls/hr Q24H IV ; Start 01/10/19 at 09:46; Stop 01/10/19 at 21:45; Status DC Lidocaine HCl (Xylocaine-Mpf 1% 2ml Vial) 2 ml PRN 1X PRN ID PRIOR TO IV START; Start 01/10/19 at 10:00; Stop 01/11/19 at 09:59; Status DC Hydromorphone HCl (Dilaudid) 0.5 mg PRN Q10MIN PRN IV SEV PAIN, Second choice; Start 01/10/19 at 10:00; Stop 01/11/19 at 09:59; Status DC Prochlorperazine Edisylate (Compazine) 5 mg PACU PRN PRN IV NAUSEA, MRX1; Start 01/10/19 at 10:00; Stop 01/11/19 at 09:59; Status DC Apixaban (Eliquis) 5 mg BID PO Last administered on 01/12/19at 08:58; Start 01/11/19 at 09:00 Sodium Chloride 500 ml @ 250 mls/hr 1X ONCE IV Last administered on 01/10/19at 19:10; Start 01/10/19 at 19:10; Stop 01/10/19 at 21:09; Status DC Sodium Chloride 1,000 ml @ 100 mls/hr 1X ONCE IV Last administered on 01/10/19at 21:37; Start 01/10/19 at 21:30; Stop 01/11/19 at 07:29; Status DC Info (Anti-Coagulation Monitoring By Pharmacy) 1 each PRN DAILY PRN MC SEE COMMENTS Last administered on 01/11/19at 09:46; Start 01/11/19 at 07:45 Diazepam (Valium) 2 mg Q6H PRN PO muscle spasm, 2ND CHOICE Last administered on 01/12/19at 08:57; Start 01/11/19 at 09:30 Metoprolol Tartrate (Lopressor) 25 mg BID PO Last administered on 01/12/19at 08:57; Start 01/11/19 at 21:00 Active Scripts Active Reported Vitamin C (Ascorbic Acid) 1,000 Mg Tablet 1,000 Mg PO DAILY Fish Oil 1,400 Mg Softgel ([place]-3/Dha/Epa/Fish Oil) 1 Each Capsule.dr 1 Each PO DAILY Centrum Silver Men Tablet (Multivit-Min/FA/Lycopen/Lutein) 1 Each Tablet 1 Each PO DAILY Cinnamon (Cinnamon Bark) 500 Mg Capsule 1,000 Mg PO BID Chromium Picolinate 400 Mcg Tablet 400 Mcg PO DAILY Tamsulosin Hcl 0.4 Mg Cap.er.24h 0.4 Mg PO DAILY Nabumetone 500 Mg Tablet 1 Tab PO BID Metformin Hcl 500 Mg Tablet 1,000 Mg PO BIDWMEALS Metoprolol Succinate ( Xl ) (Metoprolol Succinate) 200 Mg Tab.er.24h 200 Mg PO DAILY Cozaar (Losartan Potassium) 25 Mg Tablet 25 Mg PO DAILY Januvia (Sitagliptin Phosphate) 100 Mg Tablet 100 Mg PO HS Glimepiride 2 Mg Tablet 2 Mg PO BID Furosemide 40 Mg Tablet 40 Mg PO DAILY PRN Eliquis (Apixaban) 5 Mg Tablet 5 Mg PO BID Cartia Xt (Diltiazem Hcl) 240 Mg Cap.er.24h 240 Mg PO DAILY Atorvastatin Calcium 20 Mg Tablet 20 Mg PO HS Aspirin 81 Mg Tab.chew 1 Tab PO DAILY Vitals/I & O Vital Sign - Last 24 Hours 01/11/19 01/11/19 01/11/19 01/11/19 18:00 18:00 19:00 19:15 Pulse 94 102 103 Resp 18 18 20 22 B/P (MAP) 139/61 (87) 152/82 (105) 135/70 (91) Pulse Ox 97 97 96 92 O2 Delivery Nasal Cannula Nasal Cannula Nasal Cannula Nasal Cannula O2 Flow Rate 2.0 2.0 2.0 2.0 01/11/19 01/11/19 01/11/19 01/11/19 20:00 20:00 20:15 20:33 Temp 97.5 97.5 Pulse 105 99 Resp 18 24 B/P (MAP) 111/74 (86) 132/59 Pulse Ox 96 98 O2 Delivery Nasal Cannula Nasal Cannula Nasal Cannula O2 Flow Rate 2.0 2.0 2.0 01/11/19 01/11/19 01/11/19 01/12/19 21:00 22:00 23:00 00:00 Pulse 102 89 84 Resp 22 16 15 B/P (MAP) 125/52 (76) 100/53 (69) 115/64 (81) Pulse Ox 97 96 99 O2 Delivery Nasal Cannula Nasal Cannula Nasal Cannula Nasal Cannula O2 Flow Rate 2.0 2.0 2.0 2.0 01/12/19 01/12/19 01/12/19 01/12/19 00:01 01:00 02:00 03:00 Temp 98.2 98.2 Pulse 82 82 79 89 Resp 22 16 14 22 B/P (MAP) 107/59 (75) 125/63 (83) 126/60 (82) 126/78 (94) Pulse Ox 99 96 98 96 O2 Delivery Nasal Cannula Nasal Cannula Nasal Cannula Nasal Cannula O2 Flow Rate 2.0 2.0 2.0 2.0 01/12/19 01/12/19 01/12/19 01/12/19 04:00 04:00 05:00 06:00 Temp 98.3 98.3 Pulse 92 91 95 Resp 24 15 B/P (MAP) 140/64 (89) 82/74 (77) 141/61 (87) Pulse Ox 94 96 97 O2 Delivery Nasal Cannula Nasal Cannula Nasal Cannula Nasal Cannula O2 Flow Rate 2.0 2.0 2.0 2.0 01/12/19 01/12/19 01/12/19 01/12/19 06:10 07:00 07:10 08:00 Temp 98.5 98.5 Pulse 100 98 Resp 18 19 B/P (MAP) 104/ 130/ Pulse Ox 97 97 92 O2 Delivery Nasal Cannula Nasal Cannula Room Air Room Air O2 Flow Rate 2.0 2.0 96.0 01/12/19 01/12/19 01/12/19 01/12/19 08:00 08:57 09:00 10:00 Pulse 119 112 98 Resp 28 19 B/P (MAP) 130/51 162/ 133/ Pulse Ox 93 88 O2 Delivery Nasal Cannula Room Air Room Air O2 Flow Rate 2.0 01/12/19 01/12/19 01/12/19 01/12/19 11:00 12:00 12:00 13:47 Pulse 100 96 Resp 28 14 18 B/P (MAP) 93/ 136/47 (76) Pulse Ox 91 92 90 O2 Delivery Room Air Room Air Room Air Room Air 01/12/19 01/12/19 01/12/19 01/12/19 15:51 16:05 16:06 17:00 Temp 99.2 99.2 Pulse 104 Resp 15 18 B/P (MAP) 146/62 (90) Pulse Ox 91 94 O2 Delivery Room Air Room Air Room Air Room Air O2 Flow Rate 91.0 Intake and Output 01/11/19 01/11/19 01/12/19 15:00 23:00 07:00 Intake Total 620 ml 400 ml 1814.25 ml Output Total 240 ml 445 ml 495 ml Balance 380 ml -45 ml 1319.25 ml BETH MCMAHON MD Jan 12, 2019 18:00
[2019-01-12] MEDS: TAMSULOSIN 0.4 MG CAP.ER.24H. PO SCH (21:24)
[2019-01-12] MEDS: ATORVASTATIN CALCIUM 20 MG TABLET PO SCH (21:24)
[2019-01-13] MEDS: diazePAM 2 MG TABLET PO PRN (00:15)
[2019-01-13 03:00] VITALS: BP 136/63
[2019-01-13] MEDS: MORPHINE SULFATE 4 MG/ML VIAL. IV PRN ×2 (03:45→23:23)
[2019-01-13] MEDS: HYDROcodone/APAP 5/325MG 1 TAB TABLET PO PRN ×3 (05:35→21:56)
[2019-01-13] MEDS: tiZANidine 4 MG TABLET. PO PRN ×2 (05:36→23:23)
[2019-01-13 07:00] VITALS: BP 119/71
[2019-01-13] MEDS: DOCUSATE SODIUM 100 MG CAPSULE. PO PRN (08:52)
[2019-01-13] MEDS: APIXABAN 5 MG TABLET. PO SCH ×2 (08:52→21:54)
[2019-01-13] MEDS: METOPROLOL TART IMMED RELEASE 25 MG TABLET. PO SCH ×2 (08:53→21:54)
[2019-01-13] MEDS: INSULIN LISPRO 300 UNITS/3 ML VIAL. SQ SCH ×3 (09:02→16:58)
--- NOTE | 2019-01-13 10:17 | PDOC ---
SUBJECTIVE ROS BP improved,stable, transferred out of ICU States not feeling very good , no specific complaints OBJECTIVE Vital Signs Vital Signs Date Time Temp Pulse Resp B/P (MAP) Pulse Ox O2 Delivery O2 Flow Rate FiO2 01/13/19 10:14 97 Room Air 01/13/19 08:53 111 119/71 01/13/19 07:00 97.5 20 97.5 01/12/19 15:51 91.0 I & 0 Intake and Output 01/13/19 07:00 Intake Total 1690 ml Output Total 1575 ml Balance 115 ml Intake Oral 990 ml IV Total 700 ml Output Urine Total 1575 ml PHYSICAL EXAM Physical Exam General: nad HEENT: om moist Lungs: Clear to auscultation, Non labored Heart: S1S2 Abdomen: Normal bowel sounds, Soft, No tenderness, Extremities:No LE edema Skin: No rashes, Neuro: grossly normal - Case removed DIAGNOSIS/ASSESSMENT Assessment & Plan Chronic kidney disease, stage 3, secondary to single Kidney -left radical nephrectomy Stable renal function, Baseline unknown , Follows with PCP and Urologist as OP UA unremarkable , no labs this am Owen Rn , Supportive care , Monitor Anemia- Per Primary Hyperkalemia -- postoperative Resolved s/p left hip sx 01/09 Hypotensive- Resolved A-Fib on eliquis, COPD stable Diabetes-Type II - CAD s/p stents H/o left nephrectomy 2/ renal ca - in remission COMMENT/RELEVANT DATA Meds Current Medications Medications (Trade) Dose Ordered Sig/Estefania Start Time Stop Time Status Last Admin Dose Admin Acetaminophen (Tylenol Supp) 650 mg PRN Q4HRS PRN 01/09/19 15:00 Acetaminophen/ Hydrocodone Bitart (Lortab 5/325) 1 tab PRN Q4HRS PRN 01/09/19 15:15 01/13/19 10:14 1 TAB Apixaban (Eliquis) 5 mg BID 01/11/19 09:00 01/13/19 08:52 5 MG Atorvastatin Calcium (Lipitor) 20 mg HS 01/09/19 21:00 01/12/19 21:24 20 MG Cefazolin Sodium/ Dextrose 50 ml @ 100 mls/hr Q8H 01/10/19 16:00 01/11/19 08:29 DC 01/11/19 08:40 100 MLS/HR Dexamethasone Sodium Phosphate (Decadron) 4 mg STK-MED ONCE 01/10/19 07:37 01/10/19 07:37 DC Dextrose (Dextrose 50%-Water Syringe) 12.5 gm PRN Q15MIN PRN 01/09/19 22:30 Diazepam (Valium) 2 mg Q6H PRN 01/11/19 09:30 01/13/19 00:15 2 MG Diltiazem HCl (Cardizem 24hr Cd) 240 mg DAILY 01/09/19 15:30 01/11/19 11:58 DC 01/11/19 08:34 240 MG Docusate Sodium (Colace) 100 mg PRN BID PRN 01/09/19 15:00 01/13/19 08:52 100 MG Fentanyl Citrate (Fentanyl 2ml Vial) 50 mcg PRN Q5MIN PRN 01/10/19 10:00 01/11/19 09:59 DC Hydromorphone HCl (Dilaudid) 0.5 mg PRN Q10MIN PRN 01/10/19 10:00 01/11/19 09:59 DC Info (Anti-Coagulation Monitoring By Pharmacy) 1 each PRN DAILY PRN 01/11/19 07:45 01/11/19 09:46 1 EACH Insulin Human Lispro (HumaLOG VIAL for OP,RR ONLY) 0-10 units PRN Q1HR PRN 01/10/19 09:45 01/11/19 09:14 DC 01/10/19 09:40 4 UNIT Insulin Human Lispro (HumaLOG) 0-5 UNITS TIDWMEALS 01/10/19 08:00 01/13/19 09:02 2 UNITS Lidocaine HCl (Xylocaine-Mpf 1% 2ml Vial) 2 ml PRN 1X PRN 01/10/19 10:00 01/11/19 09:59 DC Lidocaine HCl (Xylocaine-Mpf 1% 5ml Vial) 5 ml STK-MED ONCE 01/10/19 07:37 01/10/19 07:37 DC Metoprolol Succinate (Toprol Xl) 200 mg DAILY 01/10/19 09:00 01/11/19 11:58 DC 01/10/19 10:36 200 MG Metoprolol Tartrate (Lopressor) 25 mg BID 01/11/19 21:00 01/13/19 08:53 25 MG Morphine Sulfate (Morphine Sulfate) 1 mg PRN Q10MIN PRN 01/10/19 10:00 01/11/19 09:59 DC Morphine Sulfate 5 mg/Ketorolac Tromethamine 30 mg/Ropivacaine 60 ml/Epinephrine HCl 0.5 mg/Sodium Chloride 100 ml @ 100 mls/hr 1X ONCE 01/10/19 07:15 01/10/19 08:14 DC 01/10/19 08:28 Ondansetron HCl (Zofran) 4 mg PRN Q6HRS PRN 01/10/19 10:00 01/11/19 09:59 DC Orphenadrine Citrate (Norflex) 60 mg 1X ONCE 01/09/19 12:30 01/09/19 12:31 DC 01/09/19 12:46 60 MG Phenylephrine HCl (PHENYLEPHRINE in 0.9% NACL PF) 1 mg STK-MED ONCE 01/10/19 09:06 01/10/19 09:06 DC Prochlorperazine Edisylate (Compazine) 5 mg PACU PRN PRN 01/10/19 10:00 01/11/19 09:59 DC Propofol 20 ml @ As Directed STK-MED ONCE 01/10/19 07:37 01/10/19 07:37 DC Ringer's Solution 1,000 ml @ 30 mls/hr Q24H 01/10/19 09:46 01/10/19 21:45 DC Sevoflurane (Ultane) 60 ml STK-MED ONCE 01/10/19 09:06 01/10/19 09:07 DC Sodium Polystyrene Sulfonate (Kayexalate) 15 gm 1X ONCE 01/09/19 22:45 01/09/19 22:46 DC 01/10/19 00:28 15 GM Sodium Chloride 1,000 ml @ 100 mls/hr 1X ONCE 01/10/19 21:30 01/11/19 07:29 DC 01/10/19 21:37 100 MLS/HR Tamsulosin HCl (Flomax) 0.4 mg QHS 01/09/19 21:00 01/12/19 21:24 0.4 MG Tizanidine HCl (Zanaflex) 4 mg PRN Q8HRS PRN 01/09/19 15:15 01/13/19 05:36 4 MG Warfarin Sodium (Coumadin Per Pharmacy) 1 each PRN DAILY PRN 01/10/19 08:15 UNV Lab Laboratory Tests Test 01/12/19 13:23 01/12/19 16:09 01/12/19 21:04 01/13/19 08:07 Glucose (Fingerstick) 163 mg/dL (70-99) 171 mg/dL (70-99) 180 mg/dL (70-99) 187 mg/dL (70-99) Results All relevant outside records, renal labs, imaging studies, telemetry/EKG's were reviewed. HALLIE JOHNSON MD Jan 13, 2019 10:17
[2019-01-13 11:00] VITALS: BP 155/76
[2019-01-13] MEDS: ANTI-COAG MONITOR BY PHARMACY. MC PRN (11:00)
--- NOTE | 2019-01-13 11:53 | PDOC ---
CARDIO Progress Notes Date and Time Date of Service 01/13/19 Time of Evaluation 1140 Subjective Subjective: No Chest Pain, No shortness of breath, No Palpitations, Other (mild left hip pain) Vitals Vitals Vital Signs Date Time Temp Pulse Resp B/P (MAP) Pulse Ox O2 Delivery O2 Flow Rate FiO2 01/13/19 11:00 98.9 104 20 155/76 (102) 96 Nasal Cannula 98.9 01/12/19 15:51 91.0 Weight Weight [ ] Input and Output Intake and Output Intake and Output 01/13/19 07:00 Intake Total 1690 ml Output Total 1575 ml Balance 115 ml Intake Oral 990 ml IV Total 700 ml Output Urine Total 1575 ml Laboratory Labs Laboratory Tests Test 01/12/19 13:23 01/12/19 16:09 01/12/19 21:04 01/13/19 08:07 Glucose (Fingerstick) 163 mg/dL (70-99) 171 mg/dL (70-99) 180 mg/dL (70-99) 187 mg/dL (70-99) Physical Exam HEENT: Neck Supple W Full Motion Chest: Symmetric LUNGS: Clear to Auscultation Heart: irregularly irregular Abdomen: Soft N/T Extremities: No Edema Neurology: alert, oriented, follow commands Assessment Assessment 1. Traumatic fall with left intertrochanteric fracture; s/p surgical repair. POD #3. Tripped and fell- no other recent falls. 2. AFIB; rate controlled with metoprolol and Cardizem. [id number]; on Eliquis 3. CAD s/p previous PCI/stent 2 years ago. CP free. Follows with [facility] 4. KELLEY, hyperkalemia; as per renal 5. Anemia, post-op. Hgb trending downward. No obvious bleeding 6. COPD; compensated 7. Hypertension; controlled 8 Hyperlipidemia; statin 9. Diabetes, II. 10. H/o renal CA s/p left nephrectomy Recommendations Repeat CBC Continue Eliqius for VTE, stroke prophylaxis with monitoring of H and H Secondary prevention measures Metoprolol/Cardizem for rate control Supportive care MARTIN YOUNG APRN Jan 13, 2019 11:53
--- NOTE | 2019-01-13 13:05 | PDOC ---
[employer] PROGRESS NOTE Chief Complaint Chief Complaint s/p left hip sx 01/09 Hypotensive, hypovolemic post op - transferred icu 01/10 KELLEY, VMN HYperkalemia, corrected Dyslipidemia - cont statin A-Fib on eliquis, COPD stable Diabetes-Type II - Hypertension - CAD s/p stents - H/o left nephrectomy / renal ca - in remission Neuropathy - diabetic polyneuropathy, stable History of Present Illness History of Present Illness 01/13 Pt seen and examined Pt resting comfortably DWRN Pt ok with DC plan to SNU Vitals/I&O Vitals/I&O: Vital Signs Date Time Temp Pulse Resp B/P (MAP) Pulse Ox O2 Delivery O2 Flow Rate FiO2 01/13/19 11:00 98.9 104 20 155/76 (102) 96 Nasal Cannula 98.9 01/12/19 15:51 91.0 I & O 01/12/19 01/12/19 01/13/19 15:00 23:00 07:00 Intake Total 1540 ml 150 ml Output Total 1075 ml 500 ml Balance 465 ml -350 ml Physical Exam General: Alert, Oriented X3, mild distress Heart: Regular rate Lungs: Clear Abdomen: Normal bowel sounds Extremities: No clubbing, No cyanosis, No edema, Normal pulses Skin: No rashes, No breakdown, No significant lesion Labs Labs: Laboratory Tests Test 01/12/19 13:23 01/12/19 16:09 01/12/19 21:04 01/13/19 08:07 Glucose (Fingerstick) 163 mg/dL (70-99) 171 mg/dL (70-99) 180 mg/dL (70-99) 187 mg/dL (70-99) Review of Systems Review of Systems: No CP, SOB Assessment and Plan Assessmemt and Plan Problems Medical Problems: (1) Chronic atrial fibrillation Status: Acute (2) Closed intertrochanteric fracture of femur Status: Acute (3) Fall at home Status: Acute (4) Hyperkalemia Status: Acute (5) Renal insufficiency Status: Acute Assessment s/p left hip sx 01/09 Hypotensive, hypovolemic post op - transferred icu 01/10 KELLEY, VMN HYperkalemia, corrected Dyslipidemia - cont statin A-Fib on eliquis, COPD stable Diabetes-Type II - Hypertension - CAD s/p stents - 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 Neuropathy - diabetic polyneuropathy, stable Plan HM DVT prophylaxis PT/OT Wound care Subspecialties following Full code DC to SNU Comment Review of Relevant I have reviewed the following items oleg (where applicable) has been applied. DANII DURAN III DO Jan 13, 2019 13:04
[2019-01-13 13:34] LABS: BASO % 0 % (0-3); EOS % 0 % (0-3); HEMATOCRIT 22.6 % (39.0-53.0); HEMOGLOBIN 7.5 g/dL (13.0-17.5); LYMPH # 0.6 x10^3/uL (1.0-4.8); LYMPH % 6 % (24-48); MEAN CORPUSCULAR HEMOGLOBIN 33 pg (25-35); MEAN CORPUSCULAR HGB CONC 33 g/dL (31-37); MEAN CORPUSCULAR VOLUME 100 fL (79-100); MONO # 1.1 x10^3/uL (0.0-1.1); MONO % 11 % (0-9); NEUT # 8.5 x10^3/uL (1.8-7.7); NEUT % 83 % (31-73); PLATELET COUNT 132 x10^3/uL (140-400); RED BLOOD COUNT 2.27 x10^6/uL (4.30-5.70); RED CELL DISTRIBUTION WIDTH 15.1 % (11.5-14.5); WHITE BLOOD COUNT 10.3 x10^3/uL (4.0-11.0)
--- NOTE | 2019-01-13 14:33 | NUR ---
SW following for discharge planning. Discussed with RN, pt is a transfer from ICU. Pt wanting SNU and wanting to speak with about placement. RN advised pt reported not [facility] because his had a bad experience over there. SW met with pt and pt's at bedside, pt would like [facility]. SW awaiting PT/OT notes. SW will continue to follow. RN notified.
[2019-01-13 15:00] VITALS: BP 166/81
[2019-01-13 20:15] VITALS: BP 178/91
[2019-01-13] MEDS: TAMSULOSIN 0.4 MG CAP.ER.24H. PO SCH (21:54)
[2019-01-13] MEDS: ATORVASTATIN CALCIUM 20 MG TABLET PO SCH (21:54)
[2019-01-13 23:19] VITALS: BP 177/70
[2019-01-14 03:20] VITALS: BP 132/75
[2019-01-14] MEDS: HYDROcodone/APAP 5/325MG 1 TAB TABLET PO PRN (05:37)
[2019-01-14] MEDS: diazePAM 2 MG TABLET PO PRN (05:37)
[2019-01-14 07:00] VITALS: BP 145/76
[2019-01-14] MEDS: APIXABAN 5 MG TABLET. PO SCH (08:10)
[2019-01-14] MEDS: METOPROLOL TART IMMED RELEASE 25 MG TABLET. PO SCH (08:10)
[2019-01-14] MEDS: INSULIN LISPRO 300 UNITS/3 ML VIAL. SQ SCH ×2 (08:16→12:14)
[2019-01-14 08:42] LABS: BASO % 0 % (0-3); EOS % 0 % (0-3); HEMATOCRIT 22.7 % (39.0-53.0); HEMOGLOBIN 7.4 g/dL (13.0-17.5); LYMPH # 0.7 x10^3/uL (1.0-4.8); LYMPH % 6 % (24-48); MEAN CORPUSCULAR HEMOGLOBIN 32 pg (25-35); MEAN CORPUSCULAR HGB CONC 33 g/dL (31-37); MEAN CORPUSCULAR VOLUME 100 fL (79-100); MONO # 1.4 x10^3/uL (0.0-1.1); MONO % 11 % (0-9); NEUT # 10.2 x10^3/uL (1.8-7.7); NEUT % 83 % (31-73); PLATELET COUNT 148 x10^3/uL (140-400); RED BLOOD COUNT 2.28 x10^6/uL (4.30-5.70); RED CELL DISTRIBUTION WIDTH 14.8 % (11.5-14.5); WHITE BLOOD COUNT 12.4 x10^3/uL (4.0-11.0)
--- NOTE | 2019-01-14 10:06 | PDOC ---
SUBJECTIVE ROS c/o pain OBJECTIVE Vital Signs Vital Signs Date Time Temp Pulse Resp B/P (MAP) Pulse Ox O2 Delivery O2 Flow Rate FiO2 01/14/19 08:10 116 145/76 01/14/19 08:00 Room Air 01/14/19 07:00 97.8 16 92 97.8 I & 0 Intake and Output 01/14/19 07:00 Intake Total 1560 ml Output Total 575 ml Balance 985 ml Intake Oral 1560 ml Output Urine Total 575 ml # Voids 3 PHYSICAL EXAM Physical Exam General: nad HEENT: om moist Lungs: Clear to auscultation, Non labored Heart: S1S2 Abdomen: Normal bowel sounds, Soft, No tenderness, Extremities:No LE edema Skin: No rashes, Neuro: grossly normal - Case removed DIAGNOSIS/ASSESSMENT Assessment & Plan Chronic kidney disease, stage 3, secondary to single Kidney -left radical nephrectomy Stable renal function, Baseline unknown , Follows with PCP and Urologist as OP UA unremarkable , Dw Rn , Supportive care , Monitor Anemia- Per Primary Hyperkalemia -- postoperative Resolved s/p left hip sx 01/09 Hypotensive- Resolved A-Fib on eliquis, COPD stable Diabetes-Type II - CAD s/p stents H/o left nephrectomy 03/28 renal ca - in remission COMMENT/RELEVANT DATA Meds Current Medications Medications (Trade) Dose Ordered Sig/Estefania Start Time Stop Time Status Last Admin Dose Admin Acetaminophen (Tylenol Supp) 650 mg PRN Q4HRS PRN 01/09/19 15:00 Acetaminophen/ Hydrocodone Bitart (Lortab 5/325) 1 tab PRN Q4HRS PRN 01/09/19 15:15 01/14/19 05:37 1 TAB Apixaban (Eliquis) 5 mg BID 01/11/19 09:00 01/14/19 08:10 5 MG Atorvastatin Calcium (Lipitor) 20 mg HS 01/09/19 21:00 01/13/19 21:54 20 MG Cefazolin Sodium/ Dextrose 50 ml @ 100 mls/hr Q8H 01/10/19 16:00 01/11/19 08:29 DC 01/11/19 08:40 100 MLS/HR Dexamethasone Sodium Phosphate (Decadron) 4 mg STK-MED ONCE 01/10/19 07:37 01/10/19 07:37 DC Dextrose (Dextrose 50%-Water Syringe) 12.5 gm PRN Q15MIN PRN 01/09/19 22:30 Diazepam (Valium) 2 mg Q6H PRN 01/11/19 09:30 01/14/19 05:37 2 MG Diltiazem HCl (Cardizem 24hr Cd) 240 mg DAILY 01/09/19 15:30 01/11/19 11:58 DC 01/11/19 08:34 240 MG Docusate Sodium (Colace) 100 mg PRN BID PRN 01/09/19 15:00 01/13/19 08:52 100 MG Fentanyl Citrate (Fentanyl 2ml Vial) 50 mcg PRN Q5MIN PRN 01/10/19 10:00 01/11/19 09:59 DC Hydromorphone HCl (Dilaudid) 0.5 mg PRN Q10MIN PRN 01/10/19 10:00 01/11/19 09:59 DC Info (Anti-Coagulation Monitoring By Pharmacy) 1 each PRN DAILY PRN 01/11/19 07:45 01/13/19 11:00 1 EACH Insulin Human Lispro (HumaLOG VIAL for OP,RR ONLY) 0-10 units PRN Q1HR PRN 01/10/19 09:45 01/11/19 09:14 DC 01/10/19 09:40 4 UNIT Insulin Human Lispro (HumaLOG) 0-5 UNITS TIDWMEALS 01/10/19 08:00 01/14/19 08:16 3 UNITS Lidocaine HCl (Xylocaine-Mpf 1% 2ml Vial) 2 ml PRN 1X PRN 01/10/19 10:00 01/11/19 09:59 DC Lidocaine HCl (Xylocaine-Mpf 1% 5ml Vial) 5 ml STK-MED ONCE 01/10/19 07:37 01/10/19 07:37 DC Metoprolol Succinate (Toprol Xl) 200 mg DAILY 01/10/19 09:00 01/11/19 11:58 DC 01/10/19 10:36 200 MG Metoprolol Tartrate (Lopressor) 25 mg BID 01/11/19 21:00 01/14/19 08:10 25 MG Morphine Sulfate (Morphine Sulfate) 1 mg PRN Q10MIN PRN 01/10/19 10:00 01/11/19 09:59 DC Morphine Sulfate 5 mg/Ketorolac Tromethamine 30 mg/Ropivacaine 60 ml/Epinephrine HCl 0.5 mg/Sodium Chloride 100 ml @ 100 mls/hr 1X ONCE 01/10/19 07:15 01/10/19 08:14 DC 01/10/19 08:28 Ondansetron HCl (Zofran) 4 mg PRN Q6HRS PRN 01/10/19 10:00 01/11/19 09:59 DC Orphenadrine Citrate (Norflex) 60 mg 1X ONCE 01/09/19 12:30 01/09/19 12:31 DC 01/09/19 12:46 60 MG Phenylephrine HCl (PHENYLEPHRINE in 0.9% NACL PF) 1 mg STK-MED ONCE 01/10/19 09:06 01/10/19 09:06 DC Prochlorperazine Edisylate (Compazine) 5 mg PACU PRN PRN 01/10/19 10:00 01/11/19 09:59 DC Propofol 20 ml @ As Directed STK-MED ONCE 01/10/19 07:37 01/10/19 07:37 DC Ringer's Solution 1,000 ml @ 30 mls/hr Q24H 01/10/19 09:46 01/10/19 21:45 DC Sevoflurane (Ultane) 60 ml STK-MED ONCE 01/10/19 09:06 01/10/19 09:07 DC Sodium Polystyrene Sulfonate (Kayexalate) 15 gm 1X ONCE 01/09/19 22:45 01/09/19 22:46 DC 01/10/19 00:28 15 GM Sodium Chloride 1,000 ml @ 100 mls/hr 1X ONCE 01/10/19 21:30 01/11/19 07:29 DC 01/10/19 21:37 100 MLS/HR Tamsulosin HCl (Flomax) 0.4 mg QHS 01/09/19 21:00 01/13/19 21:54 0.4 MG Tizanidine HCl (Zanaflex) 4 mg PRN Q8HRS PRN 01/09/19 15:15 01/13/19 23:23 4 MG Warfarin Sodium (Coumadin Per Pharmacy) 1 each PRN DAILY PRN 01/10/19 08:15 UNV Lab Laboratory Tests Test 01/13/19 12:03 11/20/19 13:00 01/13/19 16:54 01/13/19 20:48 Glucose (Fingerstick) 194 mg/dL (70-99) 180 mg/dL (70-99) 208 mg/dL (70-99) White Blood Count 10.3 x10^3/uL (4.0-11.0) Red Blood Count 2.27 x10^6/uL (4.30-5.70) Hemoglobin 7.5 g/dL (13.0-17.5) Hematocrit 22.6 % (39.0-53.0) Mean Corpuscular Volume 100 fL (79-100) Mean Corpuscular Hemoglobin 33 pg (25-35) Mean Corpuscular Hemoglobin Concent 33 g/dL (31-37) Red Cell Distribution Width 15.1 % (11.5-14.5) Platelet Count 132 x10^3/uL (140-400) Neutrophils (%) (Auto) 83 % (31-73) Lymphocytes (%) (Auto) 6 % (24-48) Monocytes (%) (Auto) 11 % (0-9) Eosinophils (%) (Auto) 0 % (0-3) Basophils (%) (Auto) 0 % (0-3) Neutrophils # (Auto) 8.5 x10^3/uL (1.8-7.7) Lymphocytes # (Auto) 0.6 x10^3/uL (1.0-4.8) Monocytes # (Auto) 1.1 x10^3/uL (0.0-1.1) Eosinophils # (Auto) 0.0 x10^3/uL (0.0-0.7) Basophils # (Auto) 0.0 x10^3/uL (0.0-0.2) Test 01/14/19 07:55 01/14/19 08:07 White Blood Count 12.4 x10^3/uL (4.0-11.0) Red Blood Count 2.28 x10^6/uL (4.30-5.70) Hemoglobin 7.4 g/dL (13.0-17.5) Hematocrit 22.7 % (39.0-53.0) Mean Corpuscular Volume 100 fL (79-100) Mean Corpuscular Hemoglobin 32 pg (25-35) Mean Corpuscular Hemoglobin Concent 33 g/dL (31-37) Red Cell Distribution Width 14.8 % (11.5-14.5) Platelet Count 148 x10^3/uL (140-400) Neutrophils (%) (Auto) 83 % (31-73) Lymphocytes (%) (Auto) 6 % (24-48) Monocytes (%) (Auto) 11 % (0-9) Eosinophils (%) (Auto) 0 % (0-3) Basophils (%) (Auto) 0 % (0-3) Neutrophils # (Auto) 10.2 x10^3/uL (1.8-7.7) Lymphocytes # (Auto) 0.7 x10^3/uL (1.0-4.8) Monocytes # (Auto) 1.4 x10^3/uL (0.0-1.1) Eosinophils # (Auto) 0.0 x10^3/uL (0.0-0.7) Basophils # (Auto) 0.0 x10^3/uL (0.0-0.2) Glucose (Fingerstick) 203 mg/dL (70-99) Results All relevant outside records, renal labs, imaging studies, telemetry/EKG's were reviewed. HALLIE JOHNSON MD Jan 14, 2019 10:06
[2019-01-14 10:22] LABS: CALCIUM 8.5 mg/dL (8.5-10.1); CREATININE 1.7 mg/dL (0.7-1.3); GFR 39.4
[2019-01-14 11:00] VITALS: BP 138/68
--- NOTE | 2019-01-14 11:18 | NUR ---
SW following. Discussed with RN, SW awaiting acceptance decision for [facility]. Possible discharge to SNU today. SW will continue to follow.
[2019-01-14] MEDS: tiZANidine 4 MG TABLET. PO PRN (12:10)
--- NOTE | 2019-01-14 12:34 | SNU/HH DC ---
DISCHARGE ORDERS DISCHARGE INFORMATION: FINAL DIAGNOSIS Problems Medical Problems: (1) Chronic atrial fibrillation Status: Acute (2) Closed intertrochanteric fracture of femur Status: Acute (3) Fall at home Status: Acute (4) Hyperkalemia Status: Acute (5) Renal insufficiency Status: Acute CONDITION ON DISCHARGE: Stable CODE STATUS: Code Status: Full LONG-TERM: SNF STAY <30 DAYS: Yes HOSPICE: HOSPICE: No HOSPICE EVAL & TREAT: No POST DISCHARGE ORDERS: ACTIVITY ORDERS: Resume previous activity DIET AFTER DISCHARGE: Cardiac TREATMENT/EQUIPMENT ORDERS: Physical Therapy For: Evalulation/Treatment Occupational Therapy For: Evaluation/Treatment DISCHARGE MEDICATIONS: Home Meds Reported Medications Ascorbic Acid (VITAMIN C) 1,000 Mg Tablet, 1000 MG PO DAILY for supplement, TAB 04/20/18 [place]-3/Dha/Epa/Fish Oil (FISH OIL 1,400 MG SOFTGEL) 1 Each Capsule.dr, 1 EACH PO DAILY for supplement, CAP 04/20/18 Multivit-Min/FA/Lycopen/Lutein (Centrum Silver Men Tablet) 1 Each Tablet, 1 EACH PO DAILY for supplement, TAB 04/20/18 Cinnamon Bark (CINNAMON) 500 Mg Capsule, 1000 MG PO BID for supplement, CAP 04/20/18 Chromium Picolinate (CHROMIUM PICOLINATE) 400 Mcg Tablet, 400 MCG PO DAILY for supplement, TAB 04/20/18 Tamsulosin Hcl (TAMSULOSIN HCL) 0.4 Mg Cap.er.24h, 0.4 MG PO DAILY for prostate, TAB 04/20/18 Nabumetone (NABUMETONE) 500 Mg Tablet, 1 TAB PO BID for arthritis, #60 TAB 04/20/18 Metformin Hcl (METFORMIN HCL) 500 Mg Tablet, 1000 MG PO BIDWMEALS for ANTI- DIABETIC, TAB 0 Refills 04/20/18 Metoprolol Succinate (METOPROLOL SUCCINATE ( XL )) 200 Mg Tab.er.24h, 200 MG PO DAILY for FOR HYPERTENSION, #30 TAB 0 Refills 04/20/18 Losartan Potassium (COZAAR ) 25 Mg Tablet, 25 MG PO DAILY for HYPERTENSION, TAB 04/20/18 Sitagliptin Phosphate (JANUVIA) 100 Mg Tablet, 100 MG PO HS for dm, TAB 04/20/18 Glimepiride (GLIMEPIRIDE) 2 Mg Tablet, 2 MG PO BID for dm, TAB 04/20/18 Furosemide (FUROSEMIDE) 40 Mg Tablet, 40 MG PO DAILY PRN for swelling, TAB 04/20/18 Apixaban (ELIQUIS) 5 Mg Tablet, 5 MG PO BID for thinner, TAB 04/20/18 Diltiazem Hcl (CARTIA XT) 240 Mg Cap.er.24h, 240 MG PO DAILY for bp, CAP.SR 04/20/18 Atorvastatin Calcium (ATORVASTATIN CALCIUM) 20 Mg Tablet, 20 MG PO HS for FOR CHOLESTEROL, #30 TAB 0 Refills 04/20/18 Aspirin (ASPIRIN) 81 Mg Tab.chew, 1 TAB PO DAILY for rx, #90 TAB 3 Refills 04/20/18 DANII DURAN III DO Jan 14, 2019 12:34
[2019-01-14] MEDS: ANTI-COAG MONITOR BY PHARMACY. MC PRN (12:41)
--- NOTE | 2019-01-14 14:09 | NUR ---
Pt accepted at [facility]. Transportation set up for between [id number]. RN and family notified.
[2019-01-14 15:00] VITALS: BP 116/56
--- NOTE | 2019-01-14 20:48 | DS ---
DATE OF DISCHARGE: 01/14/2019 ADMISSION DIAGNOSIS: Left hip fracture. DISCHARGE DIAGNOSIS: Postop open reduction and internal fixation of left hip fracture. HOSPITAL COURSE: The patient is a pleasant 78-year-old male who presented with a left hip fracture. He was admitted. We consulted Orthopedics. He was taken for ORIF. Today, I saw him and examined him. PHYSICAL EXAMINATION: HEART: Heart tones were normal. LUNGS: Clear. ABDOMEN: Soft. EXTREMITIES: The hip has clean, dry and intact dressing. We plan to discharge to senior care. DISPOSITION: Skilled. ACTIVITY: As tolerated. DIET: Low sodium. MEDICATIONS: Please see the MRAD. TOTAL TIME: 33 minutes. DANII DURAN DO DR: SOLOMON/della JOB#: [id number] / [id number]
== END 2019-01-14 15:55 | DRG 480 ==
LOC: ER 11:54 → 4 NORTH 12:46 → 1 WEST ICU 01-10 23:15 → 4 NORTH 01-12 16:05
PROVIDERS: ADMIT Internal Medicine; ATTEND Internal Medicine
PROC: 0QS734Z Reposition Left Upper Femur with Internal Fixation Device, Percutaneous Approach (ICD-10-PCS; principal; 2019-01-10 08:00)
DX: S72.142A Displaced intertrochanteric fracture of left femur, initial encounter for closed fracture (principal); N17.0 Acute kidney failure with tubular necrosis; I13.0 Hypertensive heart and chronic kidney disease with heart failure and stage 1 through stage 4 chronic kidney disease, or unspecified chronic kidney disease; I48.20 Chronic atrial fibrillation, unspecified; D64.9 Anemia, unspecified; E11.22 Type 2 diabetes mellitus with diabetic chronic kidney disease; E11.42 Type 2 diabetes mellitus with diabetic polyneuropathy; E78.5 Hyperlipidemia, unspecified; E86.1 Hypovolemia; E87.5 Hyperkalemia; I25.10 Atherosclerotic heart disease of native coronary artery without angina pectoris; I50.9 Heart failure, unspecified; J44.9 Chronic obstructive pulmonary disease, unspecified; N18.3 Chronic kidney disease, stage 3 (moderate); E66.9 Obesity, unspecified; W01.0XXA Fall on same level from slipping, tripping and stumbling without subsequent striking against object, initial encounter; Y92.015 Private garage of single-family (private) house as the place of occurrence of the external cause; Z79.01 Long term (current) use of anticoagulants; Z82.49 Family history of ischemic heart disease and other diseases of the circulatory system; Z83.3 Family history of diabetes mellitus; Z85.528 Personal history of other malignant neoplasm of kidney; Z90.49 Acquired absence of other specified parts of digestive tract; Z90.5 Acquired absence of kidney; Z95.5 Presence of coronary angioplasty implant and graft; Y93.89 Activity, other specified; Y99.8 Other external cause status; Z68.36 Body mass index [BMI] 36.0-36.9, adult; Z88.8 Allergy status to other drugs, medicaments and biological substances
CPT/HCPCS: 36415; 70450; 71045; 73502; 76000; 80048; 80053; 80061; 80069; 81001; 82306; 82962; 85007; 85014; 85018; 85025; 85027; 85610; 85730; 86850; 86900; 86901; 87641; 93005; 94760; 96375; 96376; A7015; C1713; C1887; J0696; J1100; J1815; J2270; J2360; J2370; J2405; J2704; J3010; J7030; J7040; 97110; 97530; 97535; 99285-25; G0378